=== PATIENT | male | born 1950 | race Caucasian/White ===

== ENCOUNTER 2019-03-23 18:48 | Inpatient (IN) | payer MEDICARE, BC ==
[2019-03-23] MEDS ORDERED: HYDROmorphone 1 MG/ML Syringe IM ONE (19:14)
[2019-03-23] MEDS ORDERED: HYDROmorphone 2 MG Tab PO ONE (19:44)
--- NOTE | 2019-03-23 21:10 | CRLUS ---
INDICATION: Leg swelling TECHNIQUE: Ultrasound venous duplex lower left extremity. Compression venous exam was performed using garcía-scale, color Doppler, and spectral Doppler analysis. COMPARISON: None FINDINGS: Sonographic imaging demonstrates DVT in the left popliteal vein and entire left posterior tibial veins. The left common femoral, deep femoral, superficial femoral, and greater saphenous veins to be fully compressible with normal color Doppler blood flow. IMPRESSION: There is DVT within the left popliteal and posterior tibial veins. Findings discussed with Dr. Burkett at 9:06 p.m. on March 23, 2019. Dictated by Veena Piña MD @ Mar 23 2019 9:05PM Signed by Dr. Veena Piña @ Mar 23 2019 9:08PM
--- NOTE | 2019-03-23 21:12 | EDM.PDOC ---
ED HPI GENERAL MEDICAL PROBLEM - General Chief Complaint: Lower Extremity Injury/Pain Stated Complaint: LEFT KNEE PAIN Time Seen by Provider: 03/23/19 18:55 Source of Information: Reports: Patient History Limitations: Reports: No Limitations - History of Present Illness INITIAL COMMENTS - FREE TEXT/NARRATIVE: pt arrived with a very painful swollen left leg. He had a cleo knee replacement done on Mar 14. He has been quite active and he has been on asa 81 mg bid. He was traveling from [place] today and he suddenly developed alot of pain and the leg swelled upmarkedly. He is is very uncomfortable at this time. Pt has required very little for pain Onset: Today, Other (pt developed rapid swellingof the left leg. He has had very severe pain. He has not been having to use pain meds during the day. This pain and swelling hit him about 4 thirty. He has had 1 mg of dilaudid im and 2 mg po and he is still very uncomfortable. ) Duration: Hour(s):, Other (pt states the pain is as bad as it was just before surgery. ) Location: Reports: Lower Extremity, Left Associated Symptoms: Reports: Other (pt does not have sob. ) left knee Pain Score (Numeric/FACES): 9 - Related Data Allergies Allergy/AdvReac Type Severity Reaction Status Date / Time No Known Allergies Allergy Verified 03/23/19 18:56 Home Meds: Home Meds Aspirin [Ecotrin EC] 162 mg PO DAILY 03/23/19 [History] Celecoxib [CeleBREX] 200 mg PO BID 03/23/19 [History] DULoxetine [Cymbalta] 60 mg PO DAILY 03/23/19 [History] HYDROmorphone [Dilaudid] 2 - 4 mg PO Q4H PRN 03/23/19 [History] Omeprazole 40 mg PO BIDAC 03/23/19 [History] Tamsulosin [Tamsulosin 24 Hr] 0.4 mg PO DAILY 03/23/19 [History] traZODone 150 mg PO BEDTIME 03/23/19 [History] Past Medical History Cardiovascular History: Reports: Syncope Gastrointestinal History: Reports: Cholelithiasis, GERD Genitourinary History: Reports: Prostate Disorder, Renal Calculus Psychiatric History: Reports: Depression Oncologic (Cancer) History: Reports: Lung - Past Surgical History Respiratory Surgical History: Reports: Thoracotomy GI Surgical History: Reports: Appendectomy, Hernia, Inguinal Musculoskeletal Surgical History: Reports: Arthroscopic Knee, Shoulder Replacement Social & Family History - Tobacco Use Smoking Status *Q: Never Smoker - Caffeine Use Caffeine Use: Reports: Coffee - Recreational Drug Use Recreational Drug Use: No Review of Systems - Review of Systems Review Of Systems: See Below Eyes: Reports: No Symptoms Ears: Reports: No Symptoms Nose: Reports: No Symptoms Mouth/Throat: Reports: No Symptoms Respiratory: Reports: No Symptoms Cardiovascular: Reports: No Symptoms GI/Abdominal: Reports: No Symptoms Genitourinary: Reports: No Symptoms Musculoskeletal: Reports: Other ( severe pain and marked swelling in his left lower leg. ) ED EXAM, GENERAL - Physical Exam Exam: See Below Free Text/Narrative:: pt arrived with sudden onset of swelling and pain in the left lower leg. He states this started about 4 thirty this afternoon and he developed marked swelling and he had very severe pain. He states he has not had to use pain meds dueing the day the last 3-4 days. Exam Limited By: No Limitations General Appearance: Alert, Anxious, Severe Distress Ears: Normal TMs Nose: Normal Inspection Throat/Mouth: Normal Inspection Head: Atraumatic Neck: Normal Inspection Respiratory/Chest: No Respiratory Distress Cardiovascular: Regular Rate, Rhythm GI/Abdominal: Soft, Non-Tender (Male) Exam: Deferred Rectal (Males) Exam: Deferred Back Exam: Normal Inspection Extremities: Other (marked swelling and pain in the left lower leg. He states this hard swelling started about 4 thirty. He has pain level of a ten and he has not had relief with the dilaudid he received. ) Neurological: Alert, Oriented, Normal Cognition Psychiatric: Normal Affect, Anxious Course - Vital Signs Last Recorded V/S: Last Vital Signs Temp 36.8 C 03/23/19 19:21 Pulse 78 03/23/19 20:06 Resp 26 H 03/23/19 19:21 BP 169/99 H 03/23/19 20:06 Pulse Ox 99 03/23/19 19:21 - Orders/Labs/Meds Orders: Active Orders 24 hr Category Date Time Status VL Duplex Lwr Ext Veins Ltd Lt [US] Stat Exams 03/23/19 19:43 Ordered Labs: Laboratory Tests 03/23/19 03/23/19 Range/Units 19:43 19:43 WBC 7.2 (4.5-11.0) K/uL RBC 4.29 L (4.30-5.90) M/uL Hgb 12.9 (12.0-15.0) g/dL Hct 39.2 L (40.0-54.0) % MCV 91 (80-98) fL MCH 30 (27-31) pg MCHC 33 (32-36) % Plt Count 272 (150-400) K/uL Neut % (Auto) 74 H (36-66) % Lymph % (Auto) 15 L (24-44) % [place] % (Auto) 9 H (2-6) % Eos % (Auto) 2 (2-4) % Baso % (Auto) 1 (0-1) % Sodium 138 L (140-148) mmol/L Potassium 3.7 (3.6-5.2) mmol/L Chloride 104 (100-108) mmol/L Carbon Dioxide 25 (21-32) mmol/L Anion Gap 12.7 (5.0-14.0) mmol/L BUN 18 (7-18) mg/dL Creatinine 1.2 (0.8-1.3) mg/dL Est Cr Clr Drug Dosing 61.01 mL/min Estimated GFR (MDRD) 60 (>60) Glucose 93 (74-106) mg/dL Calcium 9.0 (8.5-10.1) mg/dL Total Bilirubin 0.6 (0.2-1.0) mg/dL AST 17 (15-37) U/L ALT 26 (12-78) U/L Alkaline Phosphatase 91 (46-116) U/L Total Protein 6.9 (6.4-8.2) g/dL Albumin 3.4 (3.4-5.0) g/dL Globulin 3.5 (2.3-3.5) g/dL Albumin/Globulin Ratio 1.0 L (1.2-2.2) Meds: Medications Discontinued Medications Generic Name Dose Route Start Last Admin Trade Name Freq PRN Reason Stop Dose Admin Hydromorphone HCl 1 mg 03/23/19 19:14 03/23/19 19:20 Dilaudid IM 03/23/19 19:15 1 mg ONETIME ONE Administration Hydromorphone HCl 2 mg 03/23/19 19:44 03/23/19 20:00 Dilaudid PO 03/23/19 19:45 2 mg Q8H ONE Administration - Re-Assessments/Exams Free Text/Narrative Re-Assessment/Exam: 03/23/19 21:26 pt arrived with marked pain and swelling that came up suddenly starting about 4 thirty. Departure - Departure Time of Disposition: 21:27 Disposition: Admitted As Inpatient 64 Condition: Fair Clinical Impression: DVT (deep venous thrombosis), Severe pain - Discharge Information Referrals: PCP,None [Primary Care Provider] - Care Plan Goals: admit to Dr Renae - My Orders Last 24 Hours: My Active Orders 03/23/19 19:43 VL Duplex Lwr Ext Veins Ltd Lt [US] Stat - Assessment/Plan Last 24 Hours: My Active Orders 03/23/19 19:43 VL Duplex Lwr Ext Veins Ltd Lt [US] Stat
[2019-03-23] MEDS ORDERED: HYDROmorphone 1 MG/ML Syringe IVPUSH ONE (21:15)
[2019-03-23] MEDS: Enoxaparin 100 MG/1 ML Syringe SUBCUT SCH (22:22)
[2019-03-23] MEDS: HYDROmorphone 1 MG/ML Syringe IVPUSH PRN ×2 (22:53→23:58)
[2019-03-24] MEDS ORDERED: diphenhydrAMINE 25 MG Cap PO PRN (00:13)
[2019-03-24] MEDS: Cyclobenzaprine 10 MG Tab PO PRN ×3 (00:35→19:40)
[2019-03-24] MEDS: HYDROmorphone 1 MG/ML Syringe IVPUSH PRN ×13 (00:40→21:15)
[2019-03-24] MEDS: Sodium Chloride 0.9% 10 ML Syringe FLUSH PRN ×3 (00:43→08:37)
[2019-03-24] MEDS: traZODone 50 MG Tab PO SCH ×2 (01:03→21:01)
--- NOTE | 2019-03-24 04:58 | HP ---
CHIEF COMPLAINT: Left leg pain. HISTORY OF PRESENT ILLNESS: A 68-year-old who 10 days ago had medial left knee replacement, which went well. He has been walking up to a mile a day. All of a sudden today, he started having increasing pain and swelling that was quite severe. He came into the emergency room for further evaluation, was found to have a DVT in the left leg. I was asked to admit the patient for further evaluation and treatment. The patient denies any chest pain or shortness of breath, just the severe pain in his left leg with swelling, that is only partially relieved with the Dilaudid that they gave him in the ER. He denies a history of DVT in the past. PAST MEDICAL HISTORY: Last fall, he had right shoulder replacement; just 10 days ago, a left partial knee replacement; he has had within the last year partial lung resection on the right side for [id number] lung cancer. He has had fractured ankles in the past with surgery. He has also had a history of nephritis when he was a child. No history of DVT in the past. CURRENT MEDICATIONS: Aspirin 81 mg daily; Celebrex 200 mg b.i.d.; Cymbalta 60 mg daily; Dilaudid 2 to 4 mg q.4 hours p.r.n., but really has not had to take much except at night until today; omeprazole 40 mg b.i.d.; Flomax 0.4 mg daily; trazodone 150 mg at bedtime. ALLERGIES: NO KNOWN DRUG ALLERGIES. SOCIAL HISTORY: Quit smoking when he was in his 20s. Quit drinking alcohol prior to his recent surgery. FAMILY HISTORY: Aunt with DVT. Otherwise, none. REVIEW OF SYSTEMS: Denies any HEENT complaints. No chest pain or shortness of breath. No nausea or vomiting. No specific bowel or bladder trouble. Does have swelling in his left leg with pain. Denies any other skin problems. No neurologic complaints reported. OBJECTIVE: VITAL SIGNS: Weight 90 kg. Temperature 36.8, blood pressure 166/106, respirations 26, O2 saturation 99% on room air, and pulse 96. HEENT: Pharynx is clear. NECK: Supple. No adenopathy, thyromegaly, JVD, or carotid bruits. LUNGS: Clear. HEART: Regular, without murmurs. ABDOMEN: Soft and nontender. No mass can be palpated. EXTREMITIES: Right leg is unremarkable. Left leg does have increased swelling from the knee down with increased warmth and tenderness with some bruising, most likely because of his recent surgery down into his foot and ankle. NEUROLOGIC: Cranial nerves 2 through 12 appear grossly intact. Alert and oriented x3. DIAGNOSTIC DATA: His doppler showed DVT in left popliteal and posterior tibial veins. White count 7.2, hemoglobin 12.9, and platelets 272,000. Sodium 138, potassium 3.7, chloride 104, BUN is 18, creatinine 1.2. GFR was 60. Liver functions were normal. ASSESSMENT: 1. Left leg deep venous thrombosis with recent partial knee replacement. Because of acute onset and severity, we will admit him to the hospital under observation, start him on subcutaneous Lovenox b.i.d., and I will check in the morning for his insurance coverage as far as what oral anticoagulation his insurance will cover. We will continue with IV Dilaudid for pain. 2. Other medical problems and surgeries as listed above. Qasim Renae MD /[id number]
[2019-03-24] MEDS: Pantoprazole 40 MG Tab.CR PO SCH ×2 (07:28→17:08)
[2019-03-24] MEDS: Enoxaparin 100 MG/1 ML Syringe SUBCUT SCH ×2 (09:10→21:24)
[2019-03-24] MEDS: DULoxetine 30 MG Cap PO SCH (11:49)
[2019-03-24] MEDS: Tamsulosin 0.4 MG Cap.ER PO SCH (11:49)
[2019-03-24] MEDS ORDERED: fentaNYL 100 MCG/2 ML SDV IVPUSH ONE ×3 (11:52→14:48)
[2019-03-24] MEDS: HYDROmorphone 2 MG Tab PO PRN ×3 (11:55→21:00)
[2019-03-24] MEDS ORDERED: Bupivacaine 0.5%/EPINEPHrine 1:200,000 50 ML MDV ONE (12:48)
--- NOTE | 2019-03-24 13:15 | PCM.CONS ---
H&P History of Present Illness - General Date of Service: 03/24/19 Admit Problem/Dx: Admission Diagnosis/Problem Admission Diagnosis/Problem DVT, Deep venous thrombosis of lower extremity Source of Information: Patient, Old Records History Limitations: Reports: No Limitations - History of Present Illness Initial Comments - Free Text/Narative: 68 year old male with history of left knee arthroplasty done at [facility] on March 14. Had been doing very well and has been active. Was travelling form [place] yesterday when he developed severe pain and swelling of the lower. He was evaluated in the Ed and found to have a DVT at the Popliteal V level. He was admitted for treatment of the DVT, however his pain level has been severe since admission and there is concern for compartment syndrome. Onset of Symptoms: Reports: Sudden Symptom Onset Date: 03/23/19 Location: Reports: Lower Extremity, Left Quality: Reports: Throbbing Severity: Severe Improves with: Reports: None Worsens with: Reports: Movement left knee Pain Score (Numeric/FACES): 9 - Related Data Allergies/Adverse Reactions: Allergies Allergy/AdvReac Type Severity Reaction Status Date / Time No Known Allergies Allergy Verified 03/23/19 18:56 Home Medications: Home Meds Aspirin [Ecotrin EC] 162 mg PO DAILY 03/23/19 [History] Calcium Carbonate/Vitamin D3 [Calcium 500-Vit D3 400 Chew Tb] 2 tab PO DAILY [History] Celecoxib [CeleBREX] 200 mg PO BID 03/23/19 [History] DULoxetine [Cymbalta] 60 mg PO DAILY 03/23/19 [History] Fluticasone Propionate [Flonase] 2 spray NS DAILY 03/23/19 [History] HYDROmorphone [Dilaudid] 2 - 4 mg PO Q4H PRN 03/23/19 [History] Omeprazole 40 mg PO BIDAC 03/23/19 [History] Tamsulosin [Tamsulosin 24 Hr] 0.4 mg PO DAILY 03/23/19 [History] amLODIPine [Norvasc] 10 mg PO DAILY 03/23/19 [History] traZODone 150 mg PO BEDTIME 03/23/19 [History] Past Medical History Cardiovascular History: Reports: Hypertension, Syncope Respiratory History: Reports: Other (See Below) Other Respiratory History: lung CA Gastrointestinal History: Reports: Cholelithiasis, GERD Genitourinary History: Reports: Prostate Disorder, Renal Calculus Psychiatric History: Reports: Depression Oncologic (Cancer) History: Reports: Lung - Past Surgical History Respiratory Surgical History: Reports: Thoracotomy GI Surgical History: Reports: Appendectomy, Colonoscopy, Hernia, Inguinal Musculoskeletal Surgical History: Reports: Arthroscopic Knee, Shoulder Replacement Social & Family History - Tobacco Use Smoking Status *Q: Former Smoker Used Tobacco, but Quit: Yes Month/Year Tobacco Last Used: 1974 - Caffeine Use Caffeine Use: Reports: Coffee - Recreational Drug Use Recreational Drug Use: No H&P Review of Systems - Review of Systems: Review Of Systems: See Below Musculoskeletal: Reports: Leg Pain Exam - Exam Exam: See Below - Vital Signs Vital Signs: Last Vital Signs Temp 38.6 C H 03/24/19 11:00 Pulse 101 H 03/24/19 11:00 Resp 18 03/24/19 11:00 BP 145/96 H 03/24/19 11:00 Pulse Ox 95 03/24/19 11:00 Weight: 90.7 kg - Exam Extremities: Other (left lower leg extremely swollen and tight, DP pulse difficult to palpate, significant pain with passive motion of the toes) - Patient Data Lab Results Last 24 hrs: Laboratory Results - last 24 hr 03/23/19 03/23/19 Range/Units 19:43 19:43 WBC 7.2 (4.5-11.0) K/uL RBC 4.29 L (4.30-5.90) M/uL Hgb 12.9 (12.0-15.0) g/dL Hct 39.2 L (40.0-54.0) % MCV 91 (80-98) fL MCH 30 (27-31) pg MCHC 33 (32-36) % Plt Count 272 (150-400) K/uL Neut % (Auto) 74 H (36-66) % Lymph % (Auto) 15 L (24-44) % [place] % (Auto) 9 H (2-6) % Eos % (Auto) 2 (2-4) % Baso % (Auto) 1 (0-1) % Sodium 138 L (140-148) mmol/L Potassium 3.7 (3.6-5.2) mmol/L Chloride 104 (100-108) mmol/L Carbon Dioxide 25 (21-32) mmol/L Anion Gap 12.7 (5.0-14.0) mmol/L BUN 18 (7-18) mg/dL Creatinine 1.2 (0.8-1.3) mg/dL Est Cr Clr Drug Dosing 61.01 mL/min Estimated GFR (MDRD) 60 (>60) Glucose 93 (74-106) mg/dL Calcium 9.0 (8.5-10.1) mg/dL Total Bilirubin 0.6 (0.2-1.0) mg/dL AST 17 (15-37) U/L ALT 26 (12-78) U/L Alkaline Phosphatase 91 (46-116) U/L Total Protein 6.9 (6.4-8.2) g/dL Albumin 3.4 (3.4-5.0) g/dL Globulin 3.5 (2.3-3.5) g/dL Albumin/Globulin Ratio 1.0 L (1.2-2.2) Result Diagrams: 03/23/19 19:43 03/23/19 19:43 Consult PN Assessment/Plan (1) DVT (deep venous thrombosis) SNOMED Code(s): 730425345 Code(s): I82.409 - ACUTE EMBOLISM AND THOMBOS UNSP DEEP VN UNSP LOWER EXTREMITY Current Visit: Yes (2) Severe pain SNOMED Code(s): 94935230 Code(s): R52 - PAIN, UNSPECIFIED Current Visit: Yes (3) Nontraumatic compartment syndrome of left lower extremity SNOMED Code(s): 009929326 Code(s): M79.A22 - NONTRAUMATIC COMPARTMENT SYNDROME OF LEFT LOWER EXTREMITY Current Visit: Yes Comment: secondary to DVT Problem List Initiated/Reviewed/Updated: Yes My Orders Last 24 Hours: My Active Orders 03/24/19 13:04 Verify Patient Consent Obtain [RC] ASDIRECTED 03/24/19 13:05 ceFAZolin [Ancef] 2 gm Premix Bag 1 bag IV ONETIME Plan: Plan four compartment fasciotomy left lower leg. Risks, benefits and potential complications of procedure as well as potential consequences of delayed or non- operative treatment were discussed. He is in agreement with the plan.
[2019-03-24] MEDS ORDERED: fentaNYL 250 MCG/5 ML SDV ONE ×2 (13:22→13:47)
[2019-03-24] MEDS ORDERED: Neostigmine Methylsulfate 1 MG/ML 5 ML Syringe ONE (13:23)
[2019-03-24] MEDS ORDERED: Propofol 200 MG/20 ML SDV ONE (13:23)
[2019-03-24] MEDS ORDERED: Glycopyrrolate 0.2 MG/ML 5 ML MDV ONE (13:23)
[2019-03-24] MEDS ORDERED: Ondansetron 4 MG/2 ML SDV ONE (13:23)
[2019-03-24] MEDS ORDERED: Dexamethasone 4 MG/ML SDV ONE (13:23)
[2019-03-24] MEDS ORDERED: Succinylcholine 200 MG/10 ML MDV ONE (13:23)
[2019-03-24] MEDS ORDERED: Rocuronium 50 MG/5 ML Vial ONE (13:23)
[2019-03-24] MEDS ORDERED: ceFAZolin 2 GM in Premix Bag 1 BAG IV ONE (13:30)
--- NOTE | 2019-03-24 13:55 | PCM.PN ---
- General Info Date of Service: 03/24/19 Subjective Update: there were no acute events overnight but the patient has not had good control of his pain. He reports severe left leg pain from the knee distally. Dilauded helps but only for 10 minutes. Swelling seems worse. Pain getting worse. Severe muscle spasms along with the pain in his leg. Functional Status: Denies: Pain Controlled - Review of Systems General: Denies: Fever Musculoskeletal: Reports: Leg Pain, Foot Pain - Patient Data Vitals - Most Recent: Last Vital Signs Temp 38.6 C H 03/24/19 11:00 Pulse 101 H 03/24/19 11:00 Resp 18 03/24/19 11:00 BP 145/96 H 03/24/19 11:00 Pulse Ox 95 03/24/19 11:00 Weight - Most Recent: 90.7 kg I&O - Last 24 Hours: Intake & Output 03/23/19 03/24/19 03/24/19 22:59 06:59 14:59 Output Total 1 850 200 Balance -1 -850 -200 Lab Results Last 24 Hours: Laboratory Results - last 24 hr 03/23/19 03/23/19 Range/Units 19:43 19:43 WBC 7.2 (4.5-11.0) K/uL RBC 4.29 L (4.30-5.90) M/uL Hgb 12.9 (12.0-15.0) g/dL Hct 39.2 L (40.0-54.0) % MCV 91 (80-98) fL MCH 30 (27-31) pg MCHC 33 (32-36) % Plt Count 272 (150-400) K/uL Neut % (Auto) 74 H (36-66) % Lymph % (Auto) 15 L (24-44) % [place] % (Auto) 9 H (2-6) % Eos % (Auto) 2 (2-4) % Baso % (Auto) 1 (0-1) % Sodium 138 L (140-148) mmol/L Potassium 3.7 (3.6-5.2) mmol/L Chloride 104 (100-108) mmol/L Carbon Dioxide 25 (21-32) mmol/L Anion Gap 12.7 (5.0-14.0) mmol/L BUN 18 (7-18) mg/dL Creatinine 1.2 (0.8-1.3) mg/dL Est Cr Clr Drug Dosing 61.01 mL/min Estimated GFR (MDRD) 60 (>60) Glucose 93 (74-106) mg/dL Calcium 9.0 (8.5-10.1) mg/dL Total Bilirubin 0.6 (0.2-1.0) mg/dL AST 17 (15-37) U/L ALT 26 (12-78) U/L Alkaline Phosphatase 91 (46-116) U/L Total Protein 6.9 (6.4-8.2) g/dL Albumin 3.4 (3.4-5.0) g/dL Globulin 3.5 (2.3-3.5) g/dL Albumin/Globulin Ratio 1.0 L (1.2-2.2) Med Orders - Current: Current Medications Cyclobenzaprine HCl (Flexeril) 10 mg PO Q8H PRN PRN Reason: Spasms Last Admin: 03/24/19 09:58 Dose: 10 mg Diphenhydramine HCl (Benadryl) 25 mg PO Q4H PRN PRN Reason: Itching Duloxetine HCl (Cymbalta) 60 mg PO DAILY [facility] Last Admin: 03/24/19 11:49 Dose: Not Given Enoxaparin Sodium (Lovenox) 100 mg SUBCUT Q12H [facility] Last Admin: 03/24/19 09:10 Dose: 100 mg Hydromorphone HCl (Dilaudid) 1 mg IVPUSH Q1H PRN PRN Reason: Pain Last Admin: 03/24/19 09:58 Dose: 1 mg Hydromorphone HCl (Dilaudid) 4 mg PO Q3H PRN PRN Reason: Pain Last Admin: 03/24/19 11:55 Dose: 4 mg Cefazolin Sodium/Dextrose 2 gm (/ Premix) 50 mls @ 100 mls/hr IV ONETIME ONE Stop: 03/24/19 13:59 Pantoprazole Sodium (Protonix) 40 mg PO BIDAC [facility] Last Admin: 03/24/19 07:28 Dose: 40 mg Sodium Chloride (Saline Flush) 10 ml FLUSH ASDIRECTED PRN PRN Reason: Keep Vein Open Last Admin: 03/24/19 08:37 Dose: 10 ml Tamsulosin HCl (Flomax) 0.4 mg PO DAILY [facility] Last Admin: 03/24/19 11:49 Dose: Not Given Trazodone HCl (Trazodone) 150 mg PO BEDTIME [facility] Last Admin: 03/24/19 01:03 Dose: 150 mg Discontinued Medications Bupivacaine HCl/Epinephrine Bitart (Marcaine 0.5%/Epinephrine 1:200,000) Confirm Administered Dose 50 ml .ROUTE .STK-MED ONE Stop: 03/24/19 12:49 Dexamethasone (Dexamethasone) Confirm Administered Dose 4 mg .ROUTE .STK-MED ONE Stop: 03/24/19 13:24 Fentanyl (Sublimaze) 50 mcg IVPUSH ONETIME ONE Stop: 03/24/19 11:53 Last Admin: 03/24/19 12:11 Dose: 50 mcg Fentanyl (Sublimaze) Confirm Administered Dose 250 mcg .ROUTE .STK-MED ONE Stop: 03/24/19 13:23 Fentanyl (Sublimaze) Confirm Administered Dose 250 mcg .ROUTE .STK-MED ONE Stop: 03/24/19 13:48 Glycopyrrolate (Robinul) Confirm Administered Dose 1 mg .ROUTE .STK-MED ONE Stop: 03/24/19 13:24 Hydromorphone HCl (Dilaudid) 1 mg IM ONETIME ONE Stop: 03/23/19 19:15 Last Admin: 03/23/19 19:20 Dose: 1 mg Hydromorphone HCl (Dilaudid) 2 mg PO Q8H ONE Stop: 03/23/19 19:45 Last Admin: 03/23/19 20:00 Dose: 2 mg Hydromorphone HCl (Dilaudid) 1 mg IVPUSH Q1H ONE Stop: 03/23/19 21:16 Last Admin: 03/23/19 21:21 Dose: 1 mg Neostigmine Methylsulfate (Neostigmine) Confirm Administered Dose 5 mg .ROUTE .STK-MED ONE Stop: 03/24/19 13:24 Ondansetron HCl (Zofran) Confirm Administered Dose 4 mg .ROUTE .STK-MED ONE Stop: 03/24/19 13:24 Propofol (Diprivan 20 Ml) Confirm Administered Dose 200 mg .ROUTE .STK-MED ONE Stop: 03/24/19 13:24 Rocuronium [place] (Zemuron) Confirm Administered Dose 50 mg .ROUTE .STK-MED ONE Stop: 03/24/19 13:24 Succinylcholine Chloride (Quelicin) Confirm Administered Dose 200 mg .ROUTE .STK -MED ONE Stop: 03/24/19 13:24 - Exam Quality Assessment: No: Supplemental Oxygen General: Alert, Oriented, Cooperative, Mild Distress HEENT: Pupils Equal Lungs: Normal Respiratory Effort GI/Abdominal Exam: Soft, No Distention Extremities: No Pedal Edema (on the right), Erlin's Sign, Leg Pain, Increased Warmth (left leg from knee distally ) Skin: Warm, Dry, Ecchymosis (posterior to left knee and distal left lower leg ) Psy/Mental Status: Alert, Normal Affect - Problem List Review Problem List Initiated/Reviewed/Updated: Yes - My Orders Last 24 Hours: My Active Orders 03/24/19 10:51 HYDROmorphone [Dilaudid] 4 mg PO Q3H PRN 03/24/19 13:53 Notify Provider Consults [RC] ASDIRECTED Consult to Physician [CONS] Urgent 03/25/19 05:00 BASIC METABOLIC PANEL,BMP [CHEM] Timed CBC W/O DIFF,HEMOGRAM [HEME] Timed (1) - Plan Plan:: ASSESSMENT AND PLAN - Severe left lower extremity pain, concern for compartment syndrome - pain out of proportion to examination. Pain is getting worse. tense swelling of the lower extremity raises concern for urgent need for consultation. -Orthopedic consultation -Pain control Left leg DVT - identified with ultrasound yesterday. will need treatment but patient more urgently needs attention as discussed above. -Readdress enoxaparin after surgery Recent left knee arthroplasty - performed at [facility]. pain had been well-controlled. -Outpatient follow-up Maintenance issues - - DVT prophylaxis - enoxaparin - GI prophylaxis - not indicated - Nutrition - nothing by mouth until after surgery Admission justification - patient initially admitted to observation status. He will be transitioned to inpatient status with concern for compartment syndrome and urgent need for surgical exploration. Disposition - I would anticipate discharge home after the hospital stay Socrates Lilly M.D.
[2019-03-24] MEDS ORDERED: Acetaminophen 1,000 MG in Premix Bag 1 BAG IV ONE (14:49)
[2019-03-24] MEDS: hydrOXYzine HCl 100 MG/2 ML SDV IM PRN ×2 (17:05→21:18)
[2019-03-24] MEDS ORDERED: Lidocaine 2% Jelly 10 ML Urojet MUCMEM ONE (20:38)
[2019-03-24] MEDS ORDERED: traZODone 50 MG Tab PO SCH (21:00)
[2019-03-24] MEDS: ceFAZolin 1 GM in Premix Bag 1 BAG IV SCH (21:24)
[2019-03-24] MEDS ORDERED: fentaNYL 100 MCG/2 ML SDV IVPUSH PRN (22:44)
[2019-03-25] MEDS: Acetaminophen/oxyCODONE 325-5 MG Tab PO PRN ×5 (00:13→21:58)
[2019-03-25] MEDS: HYDROmorphone 1 MG/ML Syringe IVPUSH PRN ×8 (01:15→23:34)
[2019-03-25] MEDS: hydrOXYzine HCl 100 MG/2 ML SDV IM PRN ×4 (01:15→20:16)
[2019-03-25] MEDS: Cyclobenzaprine 10 MG Tab PO PRN (04:14)
[2019-03-25] MEDS: ceFAZolin 1 GM in Premix Bag 1 BAG IV SCH ×3 (06:23→22:58)
[2019-03-25] MEDS: DULoxetine 30 MG Cap PO SCH (08:10)
[2019-03-25] MEDS: Tamsulosin 0.4 MG Cap.ER PO SCH (08:10)
[2019-03-25] MEDS: Pantoprazole 40 MG Tab.CR PO SCH ×2 (08:10→18:00)
[2019-03-25] MEDS: Enoxaparin 100 MG/1 ML Syringe SUBCUT SCH ×2 (10:16→21:57)
[2019-03-25] MEDS ORDERED: Magnesium Hydroxide 400 MG/5 ML Susp 30 ML Cup PO PRN (10:28)
--- NOTE | 2019-03-25 10:30 | PCM.PN ---
- General Info Date of Service: 03/25/19 Subjective Update: Patient had difficulty with pain control overnight but is doing better now with transition to oxycodone/acetaminophen. Pain level is down to 4 out of 10 as of this morning. He did get up and do some walking with a walker and physical therapy. Yesterday afternoon he went to the operating room and had a hematoma evacuated from the left half. Low-grade temperature elevations. Feeling better today. Functional Status: Reports: Pain Controlled - Review of Systems Musculoskeletal: Reports: Leg Pain - Patient Data Vitals - Most Recent: Last Vital Signs Temp 36.8 C 03/25/19 07:00 Pulse 81 03/25/19 07:00 Resp 14 03/25/19 07:00 BP 123/73 03/25/19 07:00 Pulse Ox 100 03/25/19 09:48 Weight - Most Recent: 90.7 kg I&O - Last 24 Hours: Intake & Output 03/24/19 03/25/19 03/25/19 22:59 06:59 14:59 Intake Total 890 200 600 Output Total 1225 300 Balance -335 -100 600 Lab Results Last 24 Hours: Laboratory Results - last 24 hr 03/25/19 03/25/19 Range/Units 04:15 04:15 WBC 13.3 H (4.5-11.0) K/uL RBC 3.56 L (4.30-5.90) M/uL Hgb 10.9 L D (12.0-15.0) g/dL Hct 33.3 L (40.0-54.0) % MCV 94 (80-98) fL MCH 31 (27-31) pg MCHC 33 (32-36) % Plt Count 259 (150-400) K/uL Sodium 138 L (140-148) mmol/L Potassium 4.1 (3.6-5.2) mmol/L Chloride 103 (100-108) mmol/L Carbon Dioxide 26 (21-32) mmol/L Anion Gap 13.1 (5.0-14.0) mmol/L BUN 19 H (7-18) mg/dL Creatinine 1.2 (0.8-1.3) mg/dL Est Cr Clr Drug Dosing 60.76 mL/min Estimated GFR (MDRD) 60 (>60) Glucose 126 H (74-106) mg/dL Calcium 9.0 (8.5-10.1) mg/dL Med Orders - Current: Current Medications Diphenhydramine HCl (Benadryl) 25 mg PO Q4H PRN PRN Reason: Itching Duloxetine HCl (Cymbalta) 60 mg PO DAILY [facility] Last Admin: 03/25/19 08:10 Dose: 60 mg Enoxaparin Sodium (Lovenox) 90 mg SUBCUT Q12H [facility] Hydromorphone HCl (Dilaudid) 1 mg IVPUSH Q1H PRN PRN Reason: Pain Last Admin: 03/25/19 04:14 Dose: 1 mg Hydroxyzine HCl (Vistaril) 100 mg IM Q4H PRN PRN Reason: Pain (severe 7-10) Last Admin: 03/25/19 09:29 Dose: 100 mg Magnesium Hydroxide (Milk Of Magnesia) 30 ml PO BID PRN PRN Reason: Constipation Oxycodone/Acetaminophen (Percocet 325-5 Mg) 1 - 2 tab PO Q6H PRN PRN Reason: Pain Last Admin: 03/25/19 08:14 Dose: 2 tab Pantoprazole Sodium (Protonix) 40 mg PO BIDAC [facility] Last Admin: 03/25/19 08:10 Dose: 40 mg Senna/Docusate Sodium (Senna Plus) 1 tab PO BID [facility] Sodium Chloride (Saline Flush) 10 ml FLUSH ASDIRECTED PRN PRN Reason: Keep Vein Open Last Admin: 03/24/19 08:37 Dose: 10 ml Tamsulosin HCl (Flomax) 0.4 mg PO DAILY [facility] Last Admin: 03/25/19 08:10 Dose: 0.4 mg Tizanidine HCl (Zanaflex) 4 mg PO Q6H PRN PRN Reason: Muscle Spasm Trazodone HCl (Trazodone) 150 mg PO BEDTIME [facility] Last Admin: 03/24/19 21:01 Dose: 150 mg Discontinued Medications Bupivacaine HCl/Epinephrine Bitart (Marcaine 0.5%/Epinephrine 1:200,000) Confirm Administered Dose 50 ml .ROUTE .STK-MED ONE Stop: 03/24/19 12:49 Cyclobenzaprine HCl (Flexeril) 10 mg PO Q8H PRN PRN Reason: Spasms Last Admin: 03/25/19 04:14 Dose: 10 mg Dexamethasone (Dexamethasone) Confirm Administered Dose 4 mg .ROUTE .STK-MED ONE Stop: 03/24/19 13:24 Enoxaparin Sodium (Lovenox) 100 mg SUBCUT Q12H [facility] Last Admin: 03/25/19 10:16 Dose: 100 mg Fentanyl (Sublimaze) 50 mcg IVPUSH ONETIME ONE Stop: 03/24/19 11:53 Last Admin: 03/24/19 12:11 Dose: 50 mcg Fentanyl (Sublimaze) Confirm Administered Dose 250 mcg .ROUTE .STK-MED ONE Stop: 03/24/19 13:23 Fentanyl (Sublimaze) Confirm Administered Dose 250 mcg .ROUTE .STK-MED ONE Stop: 03/24/19 13:48 Fentanyl (Sublimaze) 50 mcg IVPUSH ONETIME ONE Stop: 03/24/19 14:30 Last Admin: 03/24/19 14:38 Dose: 50 mcg Fentanyl (Sublimaze) 50 mcg IVPUSH ONETIME ONE Stop: 03/24/19 14:49 Last Admin: 03/24/19 14:52 Dose: 50 mcg Fentanyl (Sublimaze) 50 mcg IVPUSH Q1H PRN PRN Reason: Pain (severe 7-10) Last Admin: 03/24/19 23:16 Dose: 50 mcg Glycopyrrolate (Robinul) Confirm Administered Dose 1 mg .ROUTE .STK-MED ONE Stop: 03/24/19 13:24 Hydromorphone HCl (Dilaudid) 1 mg IM ONETIME ONE Stop: 03/23/19 19:15 Last Admin: 03/23/19 19:20 Dose: 1 mg Hydromorphone HCl (Dilaudid) 2 mg PO Q8H ONE Stop: 03/23/19 19:45 Last Admin: 03/23/19 20:00 Dose: 2 mg Hydromorphone HCl (Dilaudid) 1 mg IVPUSH Q1H ONE Stop: 03/23/19 21:16 Last Admin: 03/23/19 21:21 Dose: 1 mg Hydromorphone HCl (Dilaudid) 4 mg PO Q3H PRN PRN Reason: Pain Last Admin: 03/24/19 21:00 Dose: 4 mg Cefazolin Sodium/Dextrose 2 gm (/ Premix) 50 mls @ 100 mls/hr IV ONETIME ONE Stop: 03/24/19 13:59 Last Admin: 03/24/19 13:35 Dose: 100 mls/hr Acetaminophen 1,000 mg/ Premix 100 mls @ 200 mls/hr IV ONETIME ONE Stop: 03/24/19 15:18 Last Admin: 03/24/19 15:01 Dose: 200 mls/hr Cefazolin Sodium/Dextrose 1 gm (/ Premix) 50 mls @ 100 mls/hr IV Q8H [facility] Stop: 03/25/19 06:29 Last Admin: 03/25/19 06:23 Dose: 100 mls/hr Lidocaine HCl (Xylocaine 2% Jelly) 10 ml MUCMEM ONETIME ONE Stop: 03/24/19 20:39 Last Admin: 03/24/19 21:02 Dose: 10 ml Neostigmine Methylsulfate (Neostigmine) Confirm Administered Dose 5 mg .ROUTE .STK-MED ONE Stop: 03/24/19 13:24 Ondansetron HCl (Zofran) Confirm Administered Dose 4 mg .ROUTE .STK-MED ONE Stop: 03/24/19 13:24 Propofol (Diprivan 20 Ml) Confirm Administered Dose 200 mg .ROUTE .STK-MED ONE Stop: 03/24/19 13:24 Rocuronium [place] (Zemuron) Confirm Administered Dose 50 mg .ROUTE .STK-MED ONE Stop: 03/24/19 13:24 Succinylcholine Chloride (Quelicin) Confirm Administered Dose 200 mg .ROUTE .STK -MED ONE Stop: 03/24/19 13:24 - Exam Quality Assessment: No: Supplemental Oxygen General: Alert, Oriented, Cooperative, No Acute Distress Lungs: Normal Respiratory Effort Extremities: Pedal Edema (left leg ), Other (left leg wrapped in alla from foot to above the knee ) Skin: Warm, Dry Psy/Mental Status: Alert, Normal Affect - Problem List Review Problem List Initiated/Reviewed/Updated: Yes - My Orders Last 24 Hours: My Active Orders 03/24/19 13:53 Notify Provider Consults [RC] ASDIRECTED Consult to Physician [CONS] Urgent 03/24/19 14:13 Admission Status [Patient Status] [ADT] Routine 03/24/19 16:40 hydrOXYzine HCl [Vistaril] 100 mg IM Q4H PRN 03/25/19 10:26 tiZANidine [Zanaflex] 4 mg PO Q6H PRN 03/25/19 10:28 Up With Assistance [RC] ASDIRECTED Magnesium Hydroxide [Milk of Magnesia] 30 ml PO BID PRN 03/25/19 10:30 Docusate Sodium/Sennosides [Senna Plus] 1 tab PO BID 03/25/19 21:00 Enoxaparin [Lovenox] 90 mg SUBCUT Q12H - Plan Plan:: ASSESSMENT AND PLAN - Large left lower extremity hematoma - no strong evidence to support compartment syndrome during surgery yesterday. large hematoma evacuated yesterday. Pain control much better today. Orthopedic consultation greatly appreciated. -Additional postop care per the orthopedic team -Pain control -Trial of muscle relaxer Left leg DVT - identified with ultrasound at the time of admission. Planning to restart anticoagulation tonight. -Restart enoxaparin 1 mg/kg every 12 hours -Transition to oral medications once stable Recent left knee arthroplasty - performed at [facility]. -Outpatient follow-up Maintenance issues - - DVT prophylaxis - enoxaparin - GI prophylaxis - not indicated - Nutrition - regular diet Disposition - I would anticipate discharge home after the hospital stay Socratse Lilly M.D.
[2019-03-25] MEDS: tiZANidine 4 MG Tab PO PRN ×2 (10:46→16:59)
--- NOTE | 2019-03-25 14:20 | PCM.SURGPN ---
- General Info Date of Service: 03/25/19 POD#: 1 Post-Op Diagnosis: Hematoma left calf, Compartment Syndrome, DVT Functional Status: Reports: Tolerating Diet, Ambulating, Other (pain alittle better controlled) - Review of Systems General: Reports: No Symptoms HEENT: Reports: No Symptoms Pulmonary: Reports: No Symptoms Cardiovascular: Reports: No Symptoms Psychiatric: Reports: No Symptoms - Patient Data Vitals - Most Recent: Last Vital Signs Temp 37.6 C 03/25/19 11:00 Pulse 104 H 03/25/19 11:00 Resp 16 03/25/19 11:00 BP 136/90 03/25/19 11:00 Pulse Ox 96 03/25/19 12:53 Weight - Most Recent: 90.7 kg I&O - Last 24 Hours: Intake & Output 03/24/19 03/25/19 03/25/19 22:59 06:59 14:59 Intake Total 890 200 600 Output Total 1225 300 Balance -335 -100 600 Lab Results Last 24 Hrs: Laboratory Results - last 24 hr 03/25/19 03/25/19 Range/Units 04:15 04:15 WBC 13.3 H (4.5-11.0) K/uL RBC 3.56 L (4.30-5.90) M/uL Hgb 10.9 L D (12.0-15.0) g/dL Hct 33.3 L (40.0-54.0) % MCV 94 (80-98) fL MCH 31 (27-31) pg MCHC 33 (32-36) % Plt Count 259 (150-400) K/uL Sodium 138 L (140-148) mmol/L Potassium 4.1 (3.6-5.2) mmol/L Chloride 103 (100-108) mmol/L Carbon Dioxide 26 (21-32) mmol/L Anion Gap 13.1 (5.0-14.0) mmol/L BUN 19 H (7-18) mg/dL Creatinine 1.2 (0.8-1.3) mg/dL Est Cr Clr Drug Dosing 60.76 mL/min Estimated GFR (MDRD) 60 (>60) Glucose 126 H (74-106) mg/dL Calcium 9.0 (8.5-10.1) mg/dL Med Orders - Current: Current Medications Diphenhydramine HCl (Benadryl) 25 mg PO Q4H PRN PRN Reason: Itching Duloxetine HCl (Cymbalta) 60 mg PO DAILY [facility] Last Admin: 03/25/19 08:10 Dose: 60 mg Enoxaparin Sodium (Lovenox) 90 mg SUBCUT Q12H [facility] Hydromorphone HCl (Dilaudid) 1 mg IVPUSH Q1H PRN PRN Reason: Pain Last Admin: 03/25/19 12:36 Dose: 1 mg Hydroxyzine HCl (Vistaril) 100 mg IM Q4H PRN PRN Reason: Pain (severe 7-10) Last Admin: 03/25/19 09:29 Dose: 100 mg Cefazolin Sodium/Dextrose 1 gm (/ Premix) 50 mls @ 100 mls/hr IV Q8HR [facility] Stop: 03/25/19 22:29 Magnesium Hydroxide (Milk Of Magnesia) 30 ml PO BID PRN PRN Reason: Constipation Oxycodone/Acetaminophen (Percocet 325-5 Mg) 2 tab PO Q4H PRN PRN Reason: Pain Last Admin: 03/25/19 13:16 Dose: 2 tab Pantoprazole Sodium (Protonix) 40 mg PO BIDAC [facility] Last Admin: 03/25/19 08:10 Dose: 40 mg Senna/Docusate Sodium (Senna Plus) 1 tab PO BID [facility] Last Admin: 03/25/19 11:40 Dose: 1 tab Sodium Chloride (Saline Flush) 10 ml FLUSH ASDIRECTED PRN PRN Reason: Keep Vein Open Last Admin: 03/24/19 08:37 Dose: 10 ml Tamsulosin HCl (Flomax) 0.4 mg PO DAILY [facility] Last Admin: 03/25/19 08:10 Dose: 0.4 mg Tizanidine HCl (Zanaflex) 4 mg PO Q6H PRN PRN Reason: Muscle Spasm Last Admin: 03/25/19 10:46 Dose: 4 mg Trazodone HCl (Trazodone) 150 mg PO BEDTIME [facility] Last Admin: 03/24/19 21:01 Dose: 150 mg Discontinued Medications Bupivacaine HCl/Epinephrine Bitart (Marcaine 0.5%/Epinephrine 1:200,000) Confirm Administered Dose 50 ml .ROUTE .STK-MED ONE Stop: 03/24/19 12:49 Cyclobenzaprine HCl (Flexeril) 10 mg PO Q8H PRN PRN Reason: Spasms Last Admin: 03/25/19 04:14 Dose: 10 mg Dexamethasone (Dexamethasone) Confirm Administered Dose 4 mg .ROUTE .STK-MED ONE Stop: 03/24/19 13:24 Enoxaparin Sodium (Lovenox) 100 mg SUBCUT Q12H [facility] Last Admin: 03/25/19 10:16 Dose: 100 mg Fentanyl (Sublimaze) 50 mcg IVPUSH ONETIME ONE Stop: 03/24/19 11:53 Last Admin: 03/24/19 12:11 Dose: 50 mcg Fentanyl (Sublimaze) Confirm Administered Dose 250 mcg .ROUTE .STK-MED ONE Stop: 03/24/19 13:23 Fentanyl (Sublimaze) Confirm Administered Dose 250 mcg .ROUTE .STK-MED ONE Stop: 03/24/19 13:48 Fentanyl (Sublimaze) 50 mcg IVPUSH ONETIME ONE Stop: 03/24/19 14:30 Last Admin: 03/24/19 14:38 Dose: 50 mcg Fentanyl (Sublimaze) 50 mcg IVPUSH ONETIME ONE Stop: 03/24/19 14:49 Last Admin: 03/24/19 14:52 Dose: 50 mcg Fentanyl (Sublimaze) 50 mcg IVPUSH Q1H PRN PRN Reason: Pain (severe 7-10) Last Admin: 03/24/19 23:16 Dose: 50 mcg Glycopyrrolate (Robinul) Confirm Administered Dose 1 mg .ROUTE .STK-MED ONE Stop: 03/24/19 13:24 Hydromorphone HCl (Dilaudid) 1 mg IM ONETIME ONE Stop: 03/23/19 19:15 Last Admin: 03/23/19 19:20 Dose: 1 mg Hydromorphone HCl (Dilaudid) 2 mg PO Q8H ONE Stop: 03/23/19 19:45 Last Admin: 03/23/19 20:00 Dose: 2 mg Hydromorphone HCl (Dilaudid) 1 mg IVPUSH Q1H ONE Stop: 03/23/19 21:16 Last Admin: 03/23/19 21:21 Dose: 1 mg Hydromorphone HCl (Dilaudid) 4 mg PO Q3H PRN PRN Reason: Pain Last Admin: 03/24/19 21:00 Dose: 4 mg Cefazolin Sodium/Dextrose 2 gm (/ Premix) 50 mls @ 100 mls/hr IV ONETIME ONE Stop: 03/24/19 13:59 Last Admin: 03/24/19 13:35 Dose: 100 mls/hr Acetaminophen 1,000 mg/ Premix 100 mls @ 200 mls/hr IV ONETIME ONE Stop: 03/24/19 15:18 Last Admin: 03/24/19 15:01 Dose: 200 mls/hr Cefazolin Sodium/Dextrose 1 gm (/ Premix) 50 mls @ 100 mls/hr IV Q8H [facility] Stop: 03/25/19 06:29 Last Admin: 03/25/19 06:23 Dose: 100 mls/hr Lidocaine HCl (Xylocaine 2% Jelly) 10 ml MUCMEM ONETIME ONE Stop: 03/24/19 20:39 Last Admin: 03/24/19 21:02 Dose: 10 ml Neostigmine Methylsulfate (Neostigmine) Confirm Administered Dose 5 mg .ROUTE .STK-MED ONE Stop: 03/24/19 13:24 Ondansetron HCl (Zofran) Confirm Administered Dose 4 mg .ROUTE .STK-MED ONE Stop: 03/24/19 13:24 Oxycodone/Acetaminophen (Percocet 325-5 Mg) 1 - 2 tab PO Q6H PRN PRN Reason: Pain Last Admin: 03/25/19 08:14 Dose: 2 tab Propofol (Diprivan 20 Ml) Confirm Administered Dose 200 mg .ROUTE .STK-MED ONE Stop: 03/24/19 13:24 Rocuronium [place] (Zemuron) Confirm Administered Dose 50 mg .ROUTE .STK-MED ONE Stop: 03/24/19 13:24 Succinylcholine Chloride (Quelicin) Confirm Administered Dose 200 mg .ROUTE .STK -MED ONE Stop: 03/24/19 13:24 - Exam Wound/Incisions: Dressing Dry and Intact, No Drainage General: Alert, Oriented Neck: Supple Extremities: Leg Pain, Limited Range of Motion, Other (still with significant swelling) Skin: Other (multiple blister secondary to swelling) Neurological: No New Focal Deficit Psy/Mental Status: Alert, Normal Affect, Normal Mood - Problem List & Annotations (1) DVT (deep venous thrombosis) SNOMED Code(s): 015053284 Code(s): I82.409 - ACUTE EMBOLISM AND THOMBOS UNSP DEEP VN UNSP LOWER EXTREMITY Status: Acute Current Visit: Yes Qualifiers: DVT location: lower extremity Affected thrombotic vein of extremity: unspecified lower extremity distal vein (2) Severe pain SNOMED Code(s): 09906190 Code(s): R52 - PAIN, UNSPECIFIED Status: Acute Current Visit: Yes (3) Nontraumatic compartment syndrome of left lower extremity SNOMED Code(s): 382271620 Code(s): M79.A22 - NONTRAUMATIC COMPARTMENT SYNDROME OF LEFT LOWER EXTREMITY Status: Acute Current Visit: Yes Annotation/Comment:: secondary to DVT (4) Hematoma of lower leg SNOMED Code(s): 311906911 Code(s): S80.10XA - CONTUSION OF UNSPECIFIED LOWER LEG, INITIAL ENCOUNTER Status: Acute Current Visit: Yes (5) Spontaneous hematoma of lower leg SNOMED Code(s): 700582492 Code(s): R23.3 - SPONTANEOUS ECCHYMOSES Status: Acute Current Visit: Yes - Problem List Review Problem List Initiated/Reviewed/Updated: Yes - My Orders Last 24 Hours: Active Orders 24 hr Category Date Time Status Admission Status [Patient Status] [ADT] Routine ADT 03/24/19 14:13 Active Dietary Supplements [RC] BIDMEALS Care 03/24/19 15:16 Active Elevate Extremity [RC] ASDIRECTED Care 03/24/19 15:10 Active Insert Byrd Catheter [Insert Urinary Catheter] [OM.PC] Care 03/24/19 20:45 Ordered Q24H Notify Provider Consults [RC] ASDIRECTED Care 03/24/19 13:53 Active Overnight Pulse Oximetry [RC] Click to Edit Care 03/24/19 22:45 Active Up With Assistance [RC] ASDIRECTED Care 03/25/19 10:28 Active Urinary Catheter Assessment [RC] ASDIRECTED Care 03/24/19 20:38 Active Consult to Physical Therapy [PT Evaluation and Cons 03/24/19 15:11 Active Treatment] [CONS] Routine Consult to Physician [CONS] Urgent Cons 03/24/19 13:53 Ordered Acetaminophen/oxyCODONE [Percocet 325-5 MG] Med 03/25/19 13:03 Active 2 tab PO Q4H PRN Docusate Sodium/Sennosides [Senna Plus] Med 03/25/19 10:30 Active 1 tab PO BID Enoxaparin [Lovenox] Med 03/25/19 21:00 Active 90 mg SUBCUT Q12H Magnesium Hydroxide [Milk of Magnesia] Med 03/25/19 10:28 Active 30 ml PO BID PRN ceFAZolin [Ancef] 1 gm Med 03/25/19 14:00 Active Premix Bag 1 bag IV Q8HR hydrOXYzine HCl [Vistaril] Med 03/24/19 16:40 Active 100 mg IM Q4H PRN tiZANidine [Zanaflex] Med 03/25/19 10:26 Active 4 mg PO Q6H PRN Convert IV to Saline Lock [OM.PC] Routine Oth 03/25/19 22:00 Ordered Pulse Oximetry Continuous Monitoring [OM.PC] Routine Oth 03/24/19 22:44 Ordered Medication Orders Diphenhydramine HCl (Benadryl) 25 mg PO Q4H PRN PRN Reason: Itching Duloxetine HCl (Cymbalta) 60 mg PO DAILY [facility] Last Admin: 03/25/19 08:10 Dose: 60 mg Admin: 03/24/19 11:49 Dose: Not Given Enoxaparin Sodium (Lovenox) 90 mg SUBCUT Q12H [facility] Hydromorphone HCl (Dilaudid) 1 mg IVPUSH Q1H PRN PRN Reason: Pain Last Admin: 03/25/19 12:36 Dose: 1 mg Admin: 03/25/19 11:36 Dose: 1 mg Admin: 03/25/19 04:14 Dose: 1 mg Admin: 03/25/19 01:15 Dose: 1 mg Admin: 03/24/19 21:15 Dose: 1 mg Admin: 03/24/19 19:39 Dose: 1 mg Admin: 03/24/19 18:22 Dose: 1 mg Admin: 03/24/19 15:28 Dose: 1 mg Admin: 03/24/19 09:58 Dose: 1 mg Admin: 03/24/19 08:37 Dose: 1 mg Admin: 03/24/19 07:08 Dose: 1 mg Admin: 03/24/19 05:59 Dose: 1 mg Admin: 03/24/19 04:44 Dose: 1 mg Admin: 03/24/19 03:42 Dose: 1 mg Admin: 03/24/19 02:42 Dose: 1 mg Admin: 03/24/19 01:48 Dose: 1 mg Admin: 03/24/19 00:40 Dose: 1 mg Admin: 03/23/19 23:58 Dose: 1 mg Admin: 03/23/19 22:53 Dose: 1 mg Hydroxyzine HCl (Vistaril) 100 mg IM Q4H PRN PRN Reason: Pain (severe 7-10) Last Admin: 03/25/19 09:29 Dose: 100 mg Admin: 03/25/19 01:15 Dose: 100 mg Admin: 03/24/19 21:18 Dose: 100 mg Admin: 03/24/19 17:05 Dose: 100 mg Cefazolin Sodium/Dextrose 1 gm (/ Premix) 50 mls @ 100 mls/hr IV Q8HR [facility] Stop: 03/25/19 22:29 Magnesium Hydroxide (Milk Of Magnesia) 30 ml PO BID PRN PRN Reason: Constipation Oxycodone/Acetaminophen (Percocet 325-5 Mg) 2 tab PO Q4H PRN PRN Reason: Pain Last Admin: 03/25/19 13:16 Dose: 2 tab Pantoprazole Sodium (Protonix) 40 mg PO BIDAC [facility] Last Admin: 03/25/19 08:10 Dose: 40 mg Admin: 03/24/19 17:08 Dose: 40 mg Admin: 03/24/19 07:28 Dose: 40 mg Senna/Docusate Sodium (Senna Plus) 1 tab PO BID [facility] Last Admin: 03/25/19 11:40 Dose: 1 tab Sodium Chloride (Saline Flush) 10 ml FLUSH ASDIRECTED PRN PRN Reason: Keep Vein Open Last Admin: 03/24/19 08:37 Dose: 10 ml Admin: 03/24/19 00:43 Dose: 10 ml Admin: 03/24/19 00:00 Dose: 10 ml Tamsulosin HCl (Flomax) 0.4 mg PO DAILY [facility] Last Admin: 03/25/19 08:10 Dose: 0.4 mg Admin: 03/24/19 11:49 Dose: Not Given Tizanidine HCl (Zanaflex) 4 mg PO Q6H PRN PRN Reason: Muscle Spasm Last Admin: 03/25/19 10:46 Dose: 4 mg Trazodone HCl (Trazodone) 150 mg PO BEDTIME [facility] Last Admin: 03/24/19 21:01 Dose: 150 mg Admin: 03/24/19 01:03 Dose: 150 mg - Assessment Assessment (Free Text/Narrative):: Dressing changed, multiple blisters and leg still tight. He has not been the best at keeping the leg elevated. OK to restart anticoagulation for DVT. - Plan Plan (Free Text/Narrative):: Elevation and light compression for swelling. OK to be up for short intervals with PT, TTWB on left. I can follow as outpt on discharge. Do not recommend [address] to [place] until swelling improved.
[2019-03-25] MEDS: traZODone 50 MG Tab PO SCH (21:58)
[2019-03-26] MEDS: tiZANidine 4 MG Tab PO PRN ×2 (01:20→09:49)
[2019-03-26] MEDS: hydrOXYzine HCl 100 MG/2 ML SDV IM PRN (01:20)
[2019-03-26] MEDS: HYDROmorphone 1 MG/ML Syringe IVPUSH PRN ×3 (01:48→15:25)
[2019-03-26] MEDS: Acetaminophen/oxyCODONE 325-5 MG Tab PO PRN ×3 (01:48→20:04)
[2019-03-26] MEDS: Pantoprazole 40 MG Tab.CR PO SCH ×2 (08:23→16:49)
[2019-03-26] MEDS: DULoxetine 30 MG Cap PO SCH (08:24)
[2019-03-26] MEDS: Tamsulosin 0.4 MG Cap.ER PO SCH (08:24)
[2019-03-26] MEDS: Enoxaparin 100 MG/1 ML Syringe SUBCUT SCH (08:25)
[2019-03-26] MEDS ORDERED: fentaNYL 100 MCG/2 ML SDV IVPUSH ONE (10:55)
[2019-03-26] MEDS ORDERED: ceFAZolin 2 GM in Premix Bag 1 BAG IV ONE (11:00)
--- NOTE | 2019-03-26 11:01 | PCM.PN ---
- General Info Date of Service: 03/26/19 Subjective Update: Patient did well through the day yesterday but overnight had increasing difficulty with pain in the left lower leg. Pain is back to severe. He feels like his foot is numb. Pulses are obtainable only with Doppler. He has not been very compliant with keeping his leg elevated. He did have a low-grade fever overnight. Hemoglobin level stable so far. He did receive blood thinning medications for treatment of his DVT last night and this morning. Functional Status: Denies: Pain Controlled - Review of Systems General: Reports: Fever Musculoskeletal: Reports: Leg Pain, Foot Pain - Patient Data Vitals - Most Recent: Last Vital Signs Temp 36.8 C 03/26/19 07:57 Pulse 86 03/26/19 07:57 Resp 16 03/26/19 07:57 BP 118/73 03/26/19 07:57 Pulse Ox 96 03/26/19 07:57 Weight - Most Recent: 90.7 kg I&O - Last 24 Hours: Intake & Output 03/25/19 03/26/19 03/26/19 22:59 06:59 14:59 Intake Total 1300 550 Output Total 1200 625 Balance 100 -75 Med Orders - Current: Current Medications Diphenhydramine HCl (Benadryl) 25 mg PO Q4H PRN PRN Reason: Itching Duloxetine HCl (Cymbalta) 60 mg PO DAILY JAY Last Admin: 03/26/19 08:24 Dose: 60 mg Enoxaparin Sodium (Lovenox) 90 mg SUBCUT Q12H [facility]AY Last Admin: 03/26/19 08:25 Dose: 90 mg Hydromorphone HCl (Dilaudid) 1 mg IVPUSH Q1H PRN PRN Reason: Pain Last Admin: 03/26/19 03:16 Dose: 1 mg Hydroxyzine HCl (Vistaril) 100 mg IM Q4H PRN PRN Reason: Pain (severe 7-10) Last Admin: 03/26/19 01:20 Dose: 100 mg Cefazolin Sodium/Dextrose 2 gm (/ Premix) 50 mls @ 100 mls/hr IV ONETIME ONE Stop: 03/26/19 11:29 Magnesium Hydroxide (Milk Of Magnesia) 30 ml PO BID PRN PRN Reason: Constipation Oxycodone/Acetaminophen (Percocet 325-5 Mg) 2 tab PO Q4H PRN PRN Reason: Pain Last Admin: 03/26/19 08:22 Dose: 2 tab Pantoprazole Sodium (Protonix) 40 mg PO BIDAC [facility] Last Admin: 03/26/19 08:23 Dose: 40 mg Senna/Docusate Sodium (Senna Plus) 1 tab PO BID [facility] Last Admin: 03/26/19 08:24 Dose: 1 tab Sodium Chloride (Saline Flush) 10 ml FLUSH ASDIRECTED PRN PRN Reason: Keep Vein Open Last Admin: 03/24/19 08:37 Dose: 10 ml Tamsulosin HCl (Flomax) 0.4 mg PO DAILY [facility] Last Admin: 03/26/19 08:24 Dose: 0.4 mg Tizanidine HCl (Zanaflex) 4 mg PO Q6H PRN PRN Reason: Muscle Spasm Last Admin: 03/26/19 09:49 Dose: 4 mg Trazodone HCl (Trazodone) 150 mg PO BEDTIME [facility] Last Admin: 03/25/19 21:58 Dose: 150 mg Discontinued Medications Bupivacaine HCl/Epinephrine Bitart (Marcaine 0.5%/Epinephrine 1:200,000) Confirm Administered Dose 50 ml .ROUTE .STK-MED ONE Stop: 03/24/19 12:49 Cyclobenzaprine HCl (Flexeril) 10 mg PO Q8H PRN PRN Reason: Spasms Last Admin: 03/25/19 04:14 Dose: 10 mg Dexamethasone (Dexamethasone) Confirm Administered Dose 4 mg .ROUTE .STK-MED ONE Stop: 03/24/19 13:24 Enoxaparin Sodium (Lovenox) 100 mg SUBCUT Q12H [facility] Last Admin: 03/25/19 10:16 Dose: 100 mg Fentanyl (Sublimaze) 50 mcg IVPUSH ONETIME ONE Stop: 03/24/19 11:53 Last Admin: 03/24/19 12:11 Dose: 50 mcg Fentanyl (Sublimaze) Confirm Administered Dose 250 mcg .ROUTE .STK-MED ONE Stop: 03/24/19 13:23 Fentanyl (Sublimaze) Confirm Administered Dose 250 mcg .ROUTE .STK-MED ONE Stop: 03/24/19 13:48 Fentanyl (Sublimaze) 50 mcg IVPUSH ONETIME ONE Stop: 03/24/19 14:30 Last Admin: 03/24/19 14:38 Dose: 50 mcg Fentanyl (Sublimaze) 50 mcg IVPUSH ONETIME ONE Stop: 03/24/19 14:49 Last Admin: 03/24/19 14:52 Dose: 50 mcg Fentanyl (Sublimaze) 50 mcg IVPUSH Q1H PRN PRN Reason: Pain (severe 7-10) Last Admin: 03/24/19 23:16 Dose: 50 mcg Fentanyl (Sublimaze) 50 mcg IVPUSH ONETIME ONE Stop: 03/26/19 10:56 Glycopyrrolate (Robinul) Confirm Administered Dose 1 mg .ROUTE .STK-MED ONE Stop: 03/24/19 13:24 Hydromorphone HCl (Dilaudid) 1 mg IM ONETIME ONE Stop: 03/23/19 19:15 Last Admin: 03/23/19 19:20 Dose: 1 mg Hydromorphone HCl (Dilaudid) 2 mg PO Q8H ONE Stop: 03/23/19 19:45 Last Admin: 03/23/19 20:00 Dose: 2 mg Hydromorphone HCl (Dilaudid) 1 mg IVPUSH Q1H ONE Stop: 03/23/19 21:16 Last Admin: 03/23/19 21:21 Dose: 1 mg Hydromorphone HCl (Dilaudid) 4 mg PO Q3H PRN PRN Reason: Pain Last Admin: 03/24/19 21:00 Dose: 4 mg Cefazolin Sodium/Dextrose 2 gm (/ Premix) 50 mls @ 100 mls/hr IV ONETIME ONE Stop: 03/24/19 13:59 Last Admin: 03/24/19 13:35 Dose: 100 mls/hr Acetaminophen 1,000 mg/ Premix 100 mls @ 200 mls/hr IV ONETIME ONE Stop: 03/24/19 15:18 Last Admin: 03/24/19 15:01 Dose: 200 mls/hr Cefazolin Sodium/Dextrose 1 gm (/ Premix) 50 mls @ 100 mls/hr IV Q8H [facility] Stop: 03/25/19 06:29 Last Admin: 03/25/19 06:23 Dose: 100 mls/hr Cefazolin Sodium/Dextrose 1 gm (/ Premix) 50 mls @ 100 mls/hr IV Q8HR [facility] Stop: 03/25/19 22:29 Last Admin: 03/25/19 22:58 Dose: 100 mls/hr Lidocaine HCl (Xylocaine 2% Jelly) 10 ml MUCMEM ONETIME ONE Stop: 03/24/19 20:39 Last Admin: 03/24/19 21:02 Dose: 10 ml Neostigmine Methylsulfate (Neostigmine) Confirm Administered Dose 5 mg .ROUTE .STK-MED ONE Stop: 03/24/19 13:24 Ondansetron HCl (Zofran) Confirm Administered Dose 4 mg .ROUTE .STK-MED ONE Stop: 03/24/19 13:24 Oxycodone/Acetaminophen (Percocet 325-5 Mg) 1 - 2 tab PO Q6H PRN PRN Reason: Pain Last Admin: 03/25/19 08:14 Dose: 2 tab Propofol (Diprivan 20 Ml) Confirm Administered Dose 200 mg .ROUTE .STK-MED ONE Stop: 03/24/19 13:24 Rocuronium [place] (Zemuron) Confirm Administered Dose 50 mg .ROUTE .STK-MED ONE Stop: 03/24/19 13:24 Succinylcholine Chloride (Quelicin) Confirm Administered Dose 200 mg .ROUTE .STK -MED ONE Stop: 03/24/19 13:24 - Exam Quality Assessment: No: Supplemental Oxygen General: Alert, Oriented, Cooperative, Moderate Distress Lungs: Normal Respiratory Effort Cardiovascular: Regular Rate, Regular Rhythm GI/Abdominal Exam: Soft, No Distention Extremities: Pedal Edema (left leg from just proximal to the knee all the way to the foot), Increased Warmth (entire left leg from the knee distally ) Skin: Warm, Dry, Ecchymosis (left lower leg ) Psy/Mental Status: Alert, Normal Affect - Problem List Review Problem List Initiated/Reviewed/Updated: Yes - My Orders Last 24 Hours: My Active Orders 03/25/19 10:26 tiZANidine [Zanaflex] 4 mg PO Q6H PRN 03/25/19 10:28 Up With Assistance [RC] ASDIRECTED Magnesium Hydroxide [Milk of Magnesia] 30 ml PO BID PRN 03/25/19 10:30 Docusate Sodium/Sennosides [Senna Plus] 1 tab PO BID 03/25/19 13:03 Acetaminophen/oxyCODONE [Percocet 325-5 MG] 2 tab PO Q4H PRN 03/25/19 21:00 Enoxaparin [Lovenox] 90 mg SUBCUT Q12H 03/27/19 05:00 BASIC METABOLIC PANEL,BMP [CHEM] Timed CBC W/O DIFF,HEMOGRAM [HEME] Timed (1) - Plan Plan:: ASSESSMENT AND PLAN - Large left lower extremity hematoma with compartment syndrome - I'm worried that his compartment syndrome has returned with his severe pain and very tense swelling of the left lower leg. Orthopedic surgery assistance appreciated. -Second surgical exploration planned this morning -Pain control -Trial of muscle relaxer -Hold systemic anticoagulation Left leg DVT - identified with ultrasound at the time of admission. Anticoagulation restarted last night but I'm concerned he may be bleeding again and that will be discontinued for the time being. -Hold anticoagulation -Transition to oral medications once stable Recent left knee arthroplasty - performed at [facility]. -Outpatient follow-up Maintenance issues - - DVT prophylaxis - enoxaparin - GI prophylaxis - not indicated - Nutrition - regular diet Disposition - I would anticipate discharge home after the hospital stay Socrates Lilly M.D.
[2019-03-26] MEDS ORDERED: fentaNYL 250 MCG/5 ML SDV ONE ×2 (13:05→13:08)
[2019-03-26] MEDS ORDERED: Neostigmine Methylsulfate 1 MG/ML 5 ML Syringe ONE (13:06)
[2019-03-26] MEDS ORDERED: Rocuronium 50 MG/5 ML Vial ONE ×2 (13:06→13:08)
[2019-03-26] MEDS ORDERED: Glycopyrrolate 0.2 MG/ML 5 ML MDV ONE (13:06)
[2019-03-26] MEDS ORDERED: Succinylcholine 200 MG/10 ML MDV ONE (13:06)
[2019-03-26] MEDS ORDERED: Propofol 200 MG/20 ML SDV ONE (13:06)
[2019-03-26] MEDS ORDERED: Ondansetron 4 MG/2 ML SDV ONE (13:06)
[2019-03-26] MEDS ORDERED: Dexamethasone 4 MG/ML SDV ONE (13:06)
[2019-03-26] MEDS ORDERED: Sodium Chloride 0.9% 1,000 ML IV SCH (15:15)
--- NOTE | 2019-03-26 19:03 | OR ---
DATE OF PROCEDURE: 03/24/2019 PREOPERATIVE DIAGNOSIS: Compartment syndrome, left leg. POSTOPERATIVE DIAGNOSIS: 1. Compartment syndrome, left leg. 2. Hematoma, superficial posterior compartment, left leg. ANESTHESIA: General. PROCEDURES: 1. Three-compartment fasciotomy, left leg including anterior, peroneal, and superficial posterior. 2. Evacuation of hematoma, left leg. INDICATIONS: Mr. Whitfield is a 68-year-old gentleman, who underwent a medial unicompartmental arthroplasty of his left knee, March 14, in another institution. He had been doing quite well and was up and about without difficulty. He was traveling from [place] and developed significant quite rapid swelling of his left leg with pain. He was evaluated in the emergency room here and found to have a DVT at the popliteal and tibial veins. Throughout the course of the night, developed increasing pain, swelling, tightness in the left leg. Evaluation the next day revealed a very taut calf, pulse difficult to palpate, and pain with any motion of the foot or ankle with pain on passive motion of the toes. He is therefore taken to the operating room for decompression for suspected compartment syndrome due to DVT. Risks, benefits, and potential complications of the procedure including risks and benefits of nonoperative treatment or transfer to another facility. DESCRIPTION OF PROCEDURE: After adequate anesthesia was obtained, the left leg was prepped and draped in a sterile fashion. Incision was initially made over the lateral aspect of the leg, carried down through the subcutaneous tissues. Fascia over the anterior compartment was identified. This was split with a Metzenbaum scissor. There was moderate tension in the anterior compartment, but not dramatic and no evidence of tissue necrosis. Fascia was split proximally and distally subcutaneously through the smaller lateral incision. Blunt dissection then carried out posteriorly over the peroneal fascia. This was split in a similar manner. Again, mild tension was noted on the muscle with no obvious tissue damage. Fascia was split proximally and distally. Incision was then left open. Incision was then made in the medial aspect of the leg just slightly posterior to the medial ridge of the tibia. The skin was incised. Fascia over the superficial compartment was incised and this showed much more significant pressure. Upon dissecting further, a large hematoma was present under significant pressure just beneath the fascia in the superficial compartment. This consisted primarily of clotted blood. This was thoroughly evacuated manually as well as with suction and then irrigated with pulse lavage. This significantly decompressed the superficial compartment and the entire leg. The deep posterior compartment was evaluated and found to be soft with no evidence of increased pressures, and fasciotomy was not performed in the deep compartment. Both wounds were irrigated. Due to the significant decompression, both wounds were then closed with 2-0 Vicryl and 3-0 Monocryl, as there was no evidence of ongoing compartment syndrome, which were then dressed with Xeroform gauze, 4x4s, ABDs, and a light compressive dressing with an Jack bandage. The patient tolerated the procedure very well. There were no complications. He was taken from the operating room in stable condition. Barrett Jackson MD /[id number]
[2019-03-26] MEDS ORDERED: Sodium Phosphate,Monobasic/Sodium Phosphate,Dibasic Enema 133 ML Bottle RECTAL ONE (19:41)
[2019-03-26] MEDS: traZODone 50 MG Tab PO SCH (20:04)
[2019-03-26] MEDS: ceFAZolin 1 GM in Premix Bag 1 BAG IV SCH (22:24)
[2019-03-27] MEDS: Acetaminophen/oxyCODONE 325-5 MG Tab PO PRN ×5 (03:01→19:27)
[2019-03-27] MEDS: ceFAZolin 1 GM in Premix Bag 1 BAG IV SCH ×2 (05:28→13:13)
[2019-03-27] MEDS: Tamsulosin 0.4 MG Cap.ER PO SCH (09:23)
[2019-03-27] MEDS: Pantoprazole 40 MG Tab.CR PO SCH ×2 (09:23→15:29)
[2019-03-27] MEDS: DULoxetine 30 MG Cap PO SCH (09:23)
--- NOTE | 2019-03-27 12:52 | PCM.PN ---
- General Info Date of Service: 03/27/19 Subjective Update: Mr. Whitfield has been stable since surgery yesterday, current pain control has been adequate. He has remained hemodynamically stable and afebrile. Hemoglobin did drop to 7.5 this morning Functional Status: Reports: Pain Controlled, Tolerating Diet, Urinating - Review of Systems General: Denies: Fever, Chills Pulmonary: Reports: No Symptoms Cardiovascular: Reports: No Symptoms Gastrointestinal: Reports: No Symptoms Musculoskeletal: Reports: Leg Pain - Patient Data Vitals - Most Recent: Last Vital Signs Temp 98.7 F 03/27/19 11:30 Pulse 80 03/27/19 11:30 Resp 16 03/27/19 11:30 BP 117/66 03/27/19 11:30 Pulse Ox 95 03/27/19 12:36 Weight - Most Recent: 199 lb 15.348 oz I&O - Last 24 Hours: Intake & Output 03/26/19 03/27/19 03/27/19 22:59 06:59 14:59 Intake Total 985 1245 240 Output Total 350 2250 Balance 635 -1005 240 Lab Results Last 24 Hours: Laboratory Results - last 24 hr 03/27/19 03/27/19 03/27/19 Range/Units 04:40 05:00 08:30 WBC 11.9 H (4.5-11.0) K/uL RBC 2.50 L (4.30-5.90) M/uL Hgb 7.5 L D (12.0-15.0) g/dL Hct 23.8 L (40.0-54.0) % MCV 95 (80-98) fL MCH 30 (27-31) pg MCHC 32 (32-36) % Plt Count 252 (150-400) K/uL Sodium 138 L (140-148) mmol/L Potassium 4.4 (3.6-5.2) mmol/L Chloride 104 (100-108) mmol/L Carbon Dioxide 29 (21-32) mmol/L Anion Gap 9.4 (5.0-14.0) mmol/L BUN 13 (7-18) mg/dL Creatinine 0.9 (0.8-1.3) mg/dL Est Cr Clr Drug Dosing 81.01 mL/min Estimated GFR (MDRD) > 60 (>60) Glucose 131 H (74-106) mg/dL Calcium 8.2 L (8.5-10.1) mg/dL Blood Type A POSITIVE Gel Antibody Screen Negative Crossmatch See Detail Yamil Results Last 24 Hours: Microbiology 03/26/19 13:50 Gram Stain - Final Knee, Left Med Orders - Current: Current Medications Diphenhydramine HCl (Benadryl) 25 mg PO Q4H PRN PRN Reason: Itching Duloxetine HCl (Cymbalta) 60 mg PO DAILY [facility] Last Admin: 03/27/19 09:23 Dose: 60 mg Ferrous Sulfate (Ferrous Sulfate) 325 mg PO BIDMEALS [facility] Hydromorphone HCl (Dilaudid) 1 mg IVPUSH Q1H PRN PRN Reason: Pain Last Admin: 03/26/19 15:25 Dose: 1 mg Hydroxyzine HCl (Vistaril) 100 mg IM Q4H PRN PRN Reason: Pain (severe 7-10) Last Admin: 03/26/19 01:20 Dose: 100 mg Cefazolin Sodium/Dextrose 1 gm (/ Premix) 50 mls @ 100 mls/hr IV Q8HR [facility] Stop: 03/27/19 14:29 Last Admin: 03/27/19 05:28 Dose: 100 mls/hr Sodium Chloride (Normal Saline) 1,000 mls @ 50 mls/hr IV ASDIRECTED [facility] Last Admin: 03/26/19 15:26 Dose: 50 mls/hr Magnesium Hydroxide (Milk Of Magnesia) 30 ml PO BID PRN PRN Reason: Constipation Oxycodone/Acetaminophen (Percocet 325-5 Mg) 2 tab PO Q4H PRN PRN Reason: Pain Last Admin: 03/27/19 11:37 Dose: 2 tab Pantoprazole Sodium (Protonix) 40 mg PO BIDAC [facility] Last Admin: 03/27/19 09:23 Dose: 40 mg Senna/Docusate Sodium (Senna Plus) 1 tab PO BID [facility] Last Admin: 03/27/19 09:23 Dose: 1 tab Sodium Chloride (Saline Flush) 10 ml FLUSH ASDIRECTED PRN PRN Reason: Keep Vein Open Last Admin: 03/24/19 08:37 Dose: 10 ml Tamsulosin HCl (Flomax) 0.4 mg PO DAILY [facility] Last Admin: 03/27/19 09:23 Dose: 0.4 mg Tizanidine HCl (Zanaflex) 4 mg PO Q6H PRN PRN Reason: Muscle Spasm Last Admin: 03/26/19 09:49 Dose: 4 mg Trazodone HCl (Trazodone) 150 mg PO BEDTIME [facility] Last Admin: 03/26/19 20:04 Dose: 150 mg Discontinued Medications Bupivacaine HCl/Epinephrine Bitart (Marcaine 0.5%/Epinephrine 1:200,000) Confirm Administered Dose 50 ml .ROUTE .STK-MED ONE Stop: 03/24/19 12:49 Cyclobenzaprine HCl (Flexeril) 10 mg PO Q8H PRN PRN Reason: Spasms Last Admin: 03/25/19 04:14 Dose: 10 mg Dexamethasone (Dexamethasone) Confirm Administered Dose 4 mg .ROUTE .STK-MED ONE Stop: 03/24/19 13:24 Dexamethasone (Dexamethasone) Confirm Administered Dose 4 mg .ROUTE .STK-MED ONE Stop: 03/26/19 13:07 Enoxaparin Sodium (Lovenox) 100 mg SUBCUT Q12H [facility] Last Admin: 03/25/19 10:16 Dose: 100 mg Enoxaparin Sodium (Lovenox) 90 mg SUBCUT Q12H [facility] Last Admin: 03/26/19 08:25 Dose: 90 mg Fentanyl (Sublimaze) 50 mcg IVPUSH ONETIME ONE Stop: 03/24/19 11:53 Last Admin: 03/24/19 12:11 Dose: 50 mcg Fentanyl (Sublimaze) Confirm Administered Dose 250 mcg .ROUTE .STK-MED ONE Stop: 03/24/19 13:23 Fentanyl (Sublimaze) Confirm Administered Dose 250 mcg .ROUTE .STK-MED ONE Stop: 03/24/19 13:48 Fentanyl (Sublimaze) 50 mcg IVPUSH ONETIME ONE Stop: 03/24/19 14:30 Last Admin: 03/24/19 14:38 Dose: 50 mcg Fentanyl (Sublimaze) 50 mcg IVPUSH ONETIME ONE Stop: 03/24/19 14:49 Last Admin: 03/24/19 14:52 Dose: 50 mcg Fentanyl (Sublimaze) 50 mcg IVPUSH Q1H PRN PRN Reason: Pain (severe 7-10) Last Admin: 03/24/19 23:16 Dose: 50 mcg Fentanyl (Sublimaze) 50 mcg IVPUSH ONETIME ONE Stop: 03/26/19 10:56 Last Admin: 03/26/19 11:08 Dose: 50 mcg Fentanyl (Sublimaze) Confirm Administered Dose 250 mcg .ROUTE .STK-MED ONE Stop: 03/26/19 13:06 Fentanyl (Sublimaze) Confirm Administered Dose 250 mcg .ROUTE .STK-MED ONE Stop: 03/26/19 13:09 Glycopyrrolate (Robinul) Confirm Administered Dose 1 mg .ROUTE .STK-MED ONE Stop: 03/24/19 13:24 Glycopyrrolate (Robinul) Confirm Administered Dose 1 mg .ROUTE .STK-MED ONE Stop: 03/26/19 13:07 Hydromorphone HCl (Dilaudid) 1 mg IM ONETIME ONE Stop: 03/23/19 19:15 Last Admin: 03/23/19 19:20 Dose: 1 mg Hydromorphone HCl (Dilaudid) 2 mg PO Q8H ONE Stop: 03/23/19 19:45 Last Admin: 03/23/19 20:00 Dose: 2 mg Hydromorphone HCl (Dilaudid) 1 mg IVPUSH Q1H ONE Stop: 03/23/19 21:16 Last Admin: 03/23/19 21:21 Dose: 1 mg Hydromorphone HCl (Dilaudid) 4 mg PO Q3H PRN PRN Reason: Pain Last Admin: 03/24/19 21:00 Dose: 4 mg Cefazolin Sodium/Dextrose 2 gm (/ Premix) 50 mls @ 100 mls/hr IV ONETIME ONE Stop: 03/24/19 13:59 Last Admin: 03/24/19 13:35 Dose: 100 mls/hr Acetaminophen 1,000 mg/ Premix 100 mls @ 200 mls/hr IV ONETIME ONE Stop: 03/24/19 15:18 Last Admin: 03/24/19 15:01 Dose: 200 mls/hr Cefazolin Sodium/Dextrose 1 gm (/ Premix) 50 mls @ 100 mls/hr IV Q8H [facility] Stop: 03/25/19 06:29 Last Admin: 03/25/19 06:23 Dose: 100 mls/hr Cefazolin Sodium/Dextrose 1 gm (/ Premix) 50 mls @ 100 mls/hr IV Q8HR [facility] Stop: 03/25/19 22:29 Last Admin: 03/25/19 22:58 Dose: 100 mls/hr Cefazolin Sodium/Dextrose 2 gm (/ Premix) 50 mls @ 100 mls/hr IV ONETIME ONE Stop: 03/26/19 11:29 Last Admin: 03/26/19 11:19 Dose: 100 mls/hr Lidocaine HCl (Xylocaine 2% Jelly) 10 ml MUCMEM ONETIME ONE Stop: 03/24/19 20:39 Last Admin: 03/24/19 21:02 Dose: 10 ml Neostigmine Methylsulfate (Neostigmine) Confirm Administered Dose 5 mg .ROUTE .STK-MED ONE Stop: 03/24/19 13:24 Neostigmine Methylsulfate (Neostigmine) Confirm Administered Dose 5 mg .ROUTE .STK-MED ONE Stop: 03/26/19 13:07 Ondansetron HCl (Zofran) Confirm Administered Dose 4 mg .ROUTE .STK-MED ONE Stop: 03/24/19 13:24 Ondansetron HCl (Zofran) Confirm Administered Dose 4 mg .ROUTE .STK-MED ONE Stop: 03/26/19 13:07 Oxycodone/Acetaminophen (Percocet 325-5 Mg) 1 - 2 tab PO Q6H PRN PRN Reason: Pain Last Admin: 03/25/19 08:14 Dose: 2 tab Propofol (Diprivan 20 Ml) Confirm Administered Dose 200 mg .ROUTE .STK-MED ONE Stop: 03/24/19 13:24 Propofol (Diprivan 20 Ml) Confirm Administered Dose 200 mg .ROUTE .STK-MED ONE Stop: 03/26/19 13:07 Rocuronium [place] (Zemuron) Confirm Administered Dose 50 mg .ROUTE .STK-MED ONE Stop: 03/24/19 13:24 Rocuronium [place] (Zemuron) Confirm Administered Dose 50 mg .ROUTE .STK-MED ONE Stop: 03/26/19 13:07 Rocuronium [place] (Zemuron) Confirm Administered Dose 50 mg .ROUTE .STK-MED ONE Stop: 03/26/19 13:09 Sodium Biphosphate/Sodium Phosphate (Fleet Enema) 133 ml RECTAL ONETIME ONE Stop: 03/26/19 19:42 Last Admin: 03/26/19 20:04 Dose: 133 ml Succinylcholine Chloride (Quelicin) Confirm Administered Dose 200 mg .ROUTE .STK -MED ONE Stop: 03/24/19 13:24 Succinylcholine Chloride (Quelicin) Confirm Administered Dose 200 mg .ROUTE .STK -MED ONE Stop: 03/26/19 13:07 - Exam General: Alert, Oriented, Cooperative, Mild Distress Lungs: Clear to Auscultation, Normal Respiratory Effort Cardiovascular: Regular Rate, Regular Rhythm, No Murmurs GI/Abdominal Exam: Soft, Non-Tender, No Organomegaly, No Distention - Problem List Review Problem List Initiated/Reviewed/Updated: Yes - My Orders Last 24 Hours: My Active Orders 03/27/19 08:30 PATIENT RETYPE [BBK] Urgent RED BLOOD CELLS LP [BBK] Urgent TYPE AND SCREEN [BBK] Urgent 03/27/19 12:45 Transfuse Red Blood Cells [COMM] Urgent 03/27/19 17:00 HGB [HEMOGLOBIN] [HEME] Stat Ferrous Sulfate 325 mg PO BIDMEALS 03/28/19 05:00 BASIC METABOLIC PANEL,BMP [CHEM] Timed CBC WITH AUTO DIFF [HEME] Timed - Plan Plan:: ASSESSMENT AND PLAN - Large left lower extremity hematoma with compartment syndrome - [facility] second surgery yesterday morning -Pain control -Trial of muscle relaxer -Hold systemic anticoagulation Acute blood loss anemia-hemoglobin down to 7.5 with evidence of some ongoing bleeding -Transfuse 1 unit of red blood cells -Reassess hemoglobin later today and in a.m. Left leg DVT - identified with ultrasound at the time of admission. Anticoagulation discontinued because of compartment syndrome and ongoing bleeding -Hold anticoagulation -Transition to oral medications once stable -Follow-up ultrasound in a.m., to evaluate for possible extension of DVT Recent left knee arthroplasty - performed at [facility]. -Outpatient follow-up Maintenance issues - - DVT prophylaxis - enoxaparin - GI prophylaxis - not indicated - Nutrition - regular diet Disposition - I would anticipate discharge home after the hospital stay
--- NOTE | 2019-03-27 16:22 | CRLUS ---
INDICATION: Follow-up left leg DVT Comparison: DVT ultrasound 03/23/2019 TECHNIQUE: A compression venous ultrasound exam was performed of the left lower extremity using garcía-scale imaging, color Doppler and spectral Doppler analysis. FINDINGS: Sonographic imaging of the left lower extremity demonstrates normal compressibility and color Doppler venous blood flow within the common femoral vein, deep femoral vein, and the proximal greater saphenous vein. Within the thigh, the femoral vein is patent and compressible. At a lower level, the popliteal and posterior tibial veins also show normal compressibility and color Doppler venous blood flow. Limited imaging of the contralateral groin demonstrates a normal spectral waveform and color Doppler venous blood flow within the right common femoral vein. There is a large complex fluid collection left popliteal fossa most likely reflecting hematoma which measures 7.8 x 4 x 2.1 centimeters. IMPRESSION: No evidence of deep vein thrombosis within the left lower extremity. Large 7.8 x 4 x 2.1 cm minimally complex fluid collection in the left popliteal fossa which may reflect evolving or maturing hematoma, postoperative fluid collection or possibly a complex Gomes`s cyst. In retrospect this is at the same location as the previous presumed deep venous thrombus with no thrombus currently identified. Results called to Dr. Gallego on 03/27/2019 on 4:20 pm. Dictated by Katerine Moulton MD @ Mar 27 2019 4:07PM Signed by Dr. Katerine Moulton @ Mar 27 2019 4:20PM
[2019-03-27] MEDS: Ferrous Sulfate 325 MG Tab PO SCH (17:56)
[2019-03-27] MEDS: traZODone 50 MG Tab PO SCH (20:27)
[2019-03-28] MEDS: Acetaminophen/oxyCODONE 325-5 MG Tab PO PRN ×6 (00:37→21:52)
[2019-03-28] MEDS: Pantoprazole 40 MG Tab.CR PO SCH ×2 (07:30→17:46)
[2019-03-28] MEDS: Ferrous Sulfate 325 MG Tab PO SCH ×2 (07:30→17:45)
[2019-03-28] MEDS: DULoxetine 30 MG Cap PO SCH (09:29)
[2019-03-28] MEDS: Tamsulosin 0.4 MG Cap.ER PO SCH (09:29)
[2019-03-28] MEDS: HYDROmorphone 1 MG/ML Syringe IVPUSH PRN (11:40)
--- NOTE | 2019-03-28 12:34 | PCM.PN ---
- General Info Date of Service: 03/28/19 Subjective Update: Mr. Whitfield is shown evidence of ongoing bleeding with increased pain in the leg and drop in hemoglobin from yesterday. Vital signs have remained stable and he has been afebrile. Functional Status: Reports: Urinating - Review of Systems General: Reports: Weakness, Fatigue, Malaise. Denies: Fever, Chills Pulmonary: Reports: No Symptoms Cardiovascular: Reports: No Symptoms Gastrointestinal: Reports: No Symptoms Musculoskeletal: Reports: Leg Pain (Dressing is in place left lower leg) - Patient Data Vitals - Most Recent: Last Vital Signs Temp 100.4 F 03/28/19 12:00 Pulse 92 03/28/19 12:00 Resp 18 03/28/19 12:00 BP 132/86 03/28/19 12:00 Pulse Ox 95 03/28/19 09:00 Weight - Most Recent: 199 lb 15.348 oz I&O - Last 24 Hours: Intake & Output 03/27/19 03/28/19 03/28/19 22:59 06:59 14:59 Intake Total 985 2226 360 Output Total 800 Balance 985 1426 360 Lab Results Last 24 Hours: Laboratory Results - last 24 hr 03/27/19 03/27/19 03/28/19 Range/Units 08:30 18:13 04:15 WBC 8.0 (4.5-11.0) K/uL RBC 2.58 L (4.30-5.90) M/uL Hgb 9.1 L 7.7 L (12.0-15.0) g/dL Hct 24.0 L (40.0-54.0) % MCV 93 (80-98) fL MCH 30 (27-31) pg MCHC 32 (32-36) % Plt Count 253 (150-400) K/uL Neut % (Auto) 75 H (36-66) % Lymph % (Auto) 11 L (24-44) % Mccreary % (Auto) 13 H (2-6) % Eos % (Auto) 1 L (2-4) % Baso % (Auto) 0 (0-1) % Sodium (140-148) mmol/L Potassium (3.6-5.2) mmol/L Chloride (100-108) mmol/L Carbon Dioxide (21-32) mmol/L Anion Gap (5.0-14.0) mmol/L BUN (7-18) mg/dL Creatinine (0.8-1.3) mg/dL Est Cr Clr Drug Dosing mL/min Estimated GFR (MDRD) (>60) Glucose (74-106) mg/dL Calcium (8.5-10.1) mg/dL Blood Type A POSITIVE Gel Antibody Screen Negative Crossmatch See Detail 03/28/19 Range/Units 04:15 WBC (4.5-11.0) K/uL RBC (4.30-5.90) M/uL Hgb (12.0-15.0) g/dL Hct (40.0-54.0) % MCV (80-98) fL MCH (27-31) pg MCHC (32-36) % Plt Count (150-400) K/uL Neut % (Auto) (36-66) % Lymph % (Auto) (24-44) % Mccreary % (Auto) (2-6) % Eos % (Auto) (2-4) % Baso % (Auto) (0-1) % Sodium 139 L (140-148) mmol/L Potassium 3.8 (3.6-5.2) mmol/L Chloride 105 (100-108) mmol/L Carbon Dioxide 28 (21-32) mmol/L Anion Gap 9.8 (5.0-14.0) mmol/L BUN 14 (7-18) mg/dL Creatinine 0.9 (0.8-1.3) mg/dL Est Cr Clr Drug Dosing 81.01 mL/min Estimated GFR (MDRD) > 60 (>60) Glucose 110 H (74-106) mg/dL Calcium 8.2 L (8.5-10.1) mg/dL Blood Type Gel Antibody Screen Crossmatch Yamil Results Last 24 Hours: Microbiology 03/26/19 13:50 Gram Stain - Final Knee, Left Wound Culture - Preliminary NO GROWTH AFTER 1 DAY Anaerobic Culture - Preliminary NO GROWTH AFTER 1 DAY Med Orders - Current: Current Medications Diphenhydramine HCl (Benadryl) 25 mg PO Q4H PRN PRN Reason: Itching Duloxetine HCl (Cymbalta) 60 mg PO DAILY [facility] Last Admin: 03/28/19 09:29 Dose: 60 mg Ferrous Sulfate (Ferrous Sulfate) 325 mg PO BIDMEALS [facility] Last Admin: 03/28/19 07:30 Dose: 325 mg Hydromorphone HCl (Dilaudid) 0.5 mg IVPUSH Q2H PRN PRN Reason: Pain Hydroxyzine HCl (Vistaril) 100 mg IM Q4H PRN PRN Reason: Pain (severe 7-10) Last Admin: 03/26/19 01:20 Dose: 100 mg Magnesium Hydroxide (Milk Of Magnesia) 30 ml PO BID PRN PRN Reason: Constipation Oxycodone/Acetaminophen (Percocet 325-5 Mg) 2 tab PO Q4H PRN PRN Reason: Pain Last Admin: 03/28/19 09:29 Dose: 2 tab Pantoprazole Sodium (Protonix) 40 mg PO BIDAC [facility] Last Admin: 03/28/19 07:30 Dose: 40 mg Senna/Docusate Sodium (Senna Plus) 1 tab PO BID [facility] Last Admin: 03/28/19 09:29 Dose: 1 tab Sodium Chloride (Saline Flush) 10 ml FLUSH ASDIRECTED PRN PRN Reason: Keep Vein Open Last Admin: 03/24/19 08:37 Dose: 10 ml Tamsulosin HCl (Flomax) 0.4 mg PO DAILY [facility] Last Admin: 03/28/19 09:29 Dose: 0.4 mg Trazodone HCl (Trazodone) 150 mg PO BEDTIME [facility] Last Admin: 03/27/19 20:27 Dose: 150 mg Discontinued Medications Bupivacaine HCl/Epinephrine Bitart (Marcaine 0.5%/Epinephrine 1:200,000) Confirm Administered Dose 50 ml .ROUTE .STK-MED ONE Stop: 03/24/19 12:49 Cyclobenzaprine HCl (Flexeril) 10 mg PO Q8H PRN PRN Reason: Spasms Last Admin: 03/25/19 04:14 Dose: 10 mg Dexamethasone (Dexamethasone) Confirm Administered Dose 4 mg .ROUTE .STK-MED ONE Stop: 03/24/19 13:24 Dexamethasone (Dexamethasone) Confirm Administered Dose 4 mg .ROUTE .STK-MED ONE Stop: 03/26/19 13:07 Enoxaparin Sodium (Lovenox) 100 mg SUBCUT Q12H [facility] Last Admin: 03/25/19 10:16 Dose: 100 mg Enoxaparin Sodium (Lovenox) 90 mg SUBCUT Q12H [facility] Last Admin: 03/26/19 08:25 Dose: 90 mg Fentanyl (Sublimaze) 50 mcg IVPUSH ONETIME ONE Stop: 03/24/19 11:53 Last Admin: 03/24/19 12:11 Dose: 50 mcg Fentanyl (Sublimaze) Confirm Administered Dose 250 mcg .ROUTE .STK-MED ONE Stop: 03/24/19 13:23 Fentanyl (Sublimaze) Confirm Administered Dose 250 mcg .ROUTE .STK-MED ONE Stop: 03/24/19 13:48 Fentanyl (Sublimaze) 50 mcg IVPUSH ONETIME ONE Stop: 03/24/19 14:30 Last Admin: 03/24/19 14:38 Dose: 50 mcg Fentanyl (Sublimaze) 50 mcg IVPUSH ONETIME ONE Stop: 03/24/19 14:49 Last Admin: 03/24/19 14:52 Dose: 50 mcg Fentanyl (Sublimaze) 50 mcg IVPUSH Q1H PRN PRN Reason: Pain (severe 7-10) Last Admin: 03/24/19 23:16 Dose: 50 mcg Fentanyl (Sublimaze) 50 mcg IVPUSH ONETIME ONE Stop: 03/26/19 10:56 Last Admin: 03/26/19 11:08 Dose: 50 mcg Fentanyl (Sublimaze) Confirm Administered Dose 250 mcg .ROUTE .STK-MED ONE Stop: 03/26/19 13:06 Fentanyl (Sublimaze) Confirm Administered Dose 250 mcg .ROUTE .STK-MED ONE Stop: 03/26/19 13:09 Glycopyrrolate (Robinul) Confirm Administered Dose 1 mg .ROUTE .STK-MED ONE Stop: 03/24/19 13:24 Glycopyrrolate (Robinul) Confirm Administered Dose 1 mg .ROUTE .STK-MED ONE Stop: 03/26/19 13:07 Hydromorphone HCl (Dilaudid) 1 mg IM ONETIME ONE Stop: 03/23/19 19:15 Last Admin: 03/23/19 19:20 Dose: 1 mg Hydromorphone HCl (Dilaudid) 2 mg PO Q8H ONE Stop: 03/23/19 19:45 Last Admin: 03/23/19 20:00 Dose: 2 mg Hydromorphone HCl (Dilaudid) 1 mg IVPUSH Q1H ONE Stop: 03/23/19 21:16 Last Admin: 03/23/19 21:21 Dose: 1 mg Hydromorphone HCl (Dilaudid) 1 mg IVPUSH Q1H PRN PRN Reason: Pain Last Admin: 03/28/19 11:40 Dose: 1 mg Hydromorphone HCl (Dilaudid) 4 mg PO Q3H PRN PRN Reason: Pain Last Admin: 03/24/19 21:00 Dose: 4 mg Cefazolin Sodium/Dextrose 2 gm (/ Premix) 50 mls @ 100 mls/hr IV ONETIME ONE Stop: 03/24/19 13:59 Last Admin: 03/24/19 13:35 Dose: 100 mls/hr Acetaminophen 1,000 mg/ Premix 100 mls @ 200 mls/hr IV ONETIME ONE Stop: 03/24/19 15:18 Last Admin: 03/24/19 15:01 Dose: 200 mls/hr Cefazolin Sodium/Dextrose 1 gm (/ Premix) 50 mls @ 100 mls/hr IV Q8H [facility] Stop: 03/25/19 06:29 Last Admin: 03/25/19 06:23 Dose: 100 mls/hr Cefazolin Sodium/Dextrose 1 gm (/ Premix) 50 mls @ 100 mls/hr IV Q8HR [facility] Stop: 03/25/19 22:29 Last Admin: 03/25/19 22:58 Dose: 100 mls/hr Cefazolin Sodium/Dextrose 2 gm (/ Premix) 50 mls @ 100 mls/hr IV ONETIME ONE Stop: 03/26/19 11:29 Last Admin: 03/26/19 11:19 Dose: 100 mls/hr Cefazolin Sodium/Dextrose 1 gm (/ Premix) 50 mls @ 100 mls/hr IV Q8HR [facility] Stop: 03/27/19 14:29 Last Admin: 03/27/19 13:13 Dose: 100 mls/hr Sodium Chloride (Normal Saline) 1,000 mls @ 50 mls/hr IV ASDIRECTED [facility] Last Admin: 03/26/19 15:26 Dose: 50 mls/hr Lidocaine HCl (Xylocaine 2% Jelly) 10 ml MUCMEM ONETIME ONE Stop: 03/24/19 20:39 Last Admin: 03/24/19 21:02 Dose: 10 ml Neostigmine Methylsulfate (Neostigmine) Confirm Administered Dose 5 mg .ROUTE .STK-MED ONE Stop: 03/24/19 13:24 Neostigmine Methylsulfate (Neostigmine) Confirm Administered Dose 5 mg .ROUTE .STK-MED ONE Stop: 03/26/19 13:07 Ondansetron HCl (Zofran) Confirm Administered Dose 4 mg .ROUTE .STK-MED ONE Stop: 03/24/19 13:24 Ondansetron HCl (Zofran) Confirm Administered Dose 4 mg .ROUTE .STK-MED ONE Stop: 03/26/19 13:07 Oxycodone/Acetaminophen (Percocet 325-5 Mg) 1 - 2 tab PO Q6H PRN PRN Reason: Pain Last Admin: 03/25/19 08:14 Dose: 2 tab Propofol (Diprivan 20 Ml) Confirm Administered Dose 200 mg .ROUTE .STK-MED ONE Stop: 03/24/19 13:24 Propofol (Diprivan 20 Ml) Confirm Administered Dose 200 mg .ROUTE .STK-MED ONE Stop: 03/26/19 13:07 Rocuronium [place] (Zemuron) Confirm Administered Dose 50 mg .ROUTE .STK-MED ONE Stop: 03/24/19 13:24 Rocuronium [place] (Zemuron) Confirm Administered Dose 50 mg .ROUTE .STK-MED ONE Stop: 03/26/19 13:07 Rocuronium [place] (Zemuron) Confirm Administered Dose 50 mg .ROUTE .STK-MED ONE Stop: 03/26/19 13:09 Sodium Biphosphate/Sodium Phosphate (Fleet Enema) 133 ml RECTAL ONETIME ONE Stop: 03/26/19 19:42 Last Admin: 03/26/19 20:04 Dose: 133 ml Succinylcholine Chloride (Quelicin) Confirm Administered Dose 200 mg .ROUTE .STK -MED ONE Stop: 03/24/19 13:24 Succinylcholine Chloride (Quelicin) Confirm Administered Dose 200 mg .ROUTE .STK -MED ONE Stop: 03/26/19 13:07 Tizanidine HCl (Zanaflex) 4 mg PO Q6H PRN PRN Reason: Muscle Spasm Last Admin: 03/26/19 09:49 Dose: 4 mg - Exam General: Alert, Oriented, Cooperative, Moderate Distress Lungs: Clear to Auscultation, Normal Respiratory Effort Cardiovascular: Regular Rate, Regular Rhythm, No Murmurs GI/Abdominal Exam: Soft, Non-Tender, No Organomegaly, No Distention Extremities: Leg Pain (Surgical dressing in place left lower leg) - Problem List Review Problem List Initiated/Reviewed/Updated: Yes - My Orders Last 24 Hours: My Active Orders 03/27/19 17:00 Ferrous Sulfate 325 mg PO BIDMEALS 03/28/19 08:59 Transfuse Red Blood Cells [COMM] Urgent 03/28/19 12:31 HYDROmorphone [Dilaudid] 0.5 mg IVPUSH Q2H PRN Convert IV to Saline Lock [OM.PC] Routine 03/29/19 05:00 BASIC METABOLIC PANEL,BMP [CHEM] Timed CBC WITH AUTO DIFF [HEME] Timed - Plan Plan:: ASSESSMENT AND PLAN - Large left lower extremity hematoma with compartment syndrome -evidence of ongoing bleeding with drop in hemoglobin from yesterday -Pain control -Postoperative care per Dr. Jackson Acute blood loss anemia-hemoglobin down to 7.7 despite transfusion of 1 unit of red blood cells yesterday -Transfuse 1 unit of red blood cells -Reassess hemoglobin later today and in a.m. Left leg DVT - repeat ultrasound showed no evidence of deep vein thrombosis Recent left knee arthroplasty - performed at [facility]. -Outpatient follow-up Maintenance issues - - DVT prophylaxis - enoxaparin - GI prophylaxis - not indicated - Nutrition - regular diet Disposition - I would anticipate discharge home after the hospital stay
--- NOTE | 2019-03-28 17:19 | PCM.SURGPN ---
- General Info Date of Service: 03/28/19 Date of Surgery/Procedure: 03/26/19 POD#: 2 Functional Status: Reports: Tolerating Diet - Review of Systems General: Reports: No Symptoms Musculoskeletal: Reports: Leg Pain Neurological: Reports: No Symptoms Psychiatric: Reports: No Symptoms - Patient Data Vitals - Most Recent: Last Vital Signs Temp 38.4 C H 03/28/19 15:26 Pulse 95 03/28/19 14:20 Resp 18 03/28/19 14:20 BP 129/81 03/28/19 14:20 Pulse Ox 96 03/28/19 14:20 Weight - Most Recent: 90.7 kg I&O - Last 24 Hours: Intake & Output 03/28/19 03/28/19 03/28/19 06:59 14:59 22:59 Intake Total 2226 709 Output Total 800 Balance 1426 709 Lab Results Last 24 Hrs: Laboratory Results - last 24 hr 03/27/19 03/27/19 03/28/19 Range/Units 08:30 18:13 04:15 WBC 8.0 (4.5-11.0) K/uL RBC 2.58 L (4.30-5.90) M/uL Hgb 9.1 L 7.7 L (12.0-15.0) g/dL Hct 24.0 L (40.0-54.0) % MCV 93 (80-98) fL MCH 30 (27-31) pg MCHC 32 (32-36) % Plt Count 253 (150-400) K/uL Neut % (Auto) 75 H (36-66) % Lymph % (Auto) 11 L (24-44) % [place] % (Auto) 13 H (2-6) % Eos % (Auto) 1 L (2-4) % Baso % (Auto) 0 (0-1) % Sodium (140-148) mmol/L Potassium (3.6-5.2) mmol/L Chloride (100-108) mmol/L Carbon Dioxide (21-32) mmol/L Anion Gap (5.0-14.0) mmol/L BUN (7-18) mg/dL Creatinine (0.8-1.3) mg/dL Est Cr Clr Drug Dosing mL/min Estimated GFR (MDRD) (>60) Glucose (74-106) mg/dL Calcium (8.5-10.1) mg/dL Blood Type A POSITIVE Gel Antibody Screen Negative Crossmatch See Detail 03/28/19 Range/Units 04:15 WBC (4.5-11.0) K/uL RBC (4.30-5.90) M/uL Hgb (12.0-15.0) g/dL Hct (40.0-54.0) % MCV (80-98) fL MCH (27-31) pg MCHC (32-36) % Plt Count (150-400) K/uL Neut % (Auto) (36-66) % Lymph % (Auto) (24-44) % [place] % (Auto) (2-6) % Eos % (Auto) (2-4) % Baso % (Auto) (0-1) % Sodium 139 L (140-148) mmol/L Potassium 3.8 (3.6-5.2) mmol/L Chloride 105 (100-108) mmol/L Carbon Dioxide 28 (21-32) mmol/L Anion Gap 9.8 (5.0-14.0) mmol/L BUN 14 (7-18) mg/dL Creatinine 0.9 (0.8-1.3) mg/dL Est Cr Clr Drug Dosing 81.01 mL/min Estimated GFR (MDRD) > 60 (>60) Glucose 110 H (74-106) mg/dL Calcium 8.2 L (8.5-10.1) mg/dL Blood Type Gel Antibody Screen Crossmatch Yamil Results Last 24 Hrs: Microbiology 03/26/19 13:50 Gram Stain - Final Knee, Left Wound Culture - Preliminary NO GROWTH AFTER 1 DAY Anaerobic Culture - Preliminary NO GROWTH AFTER 1 DAY Med Orders - Current: Current Medications Diphenhydramine HCl (Benadryl) 25 mg PO Q4H PRN PRN Reason: Itching Duloxetine HCl (Cymbalta) 60 mg PO DAILY [facility] Last Admin: 03/28/19 09:29 Dose: 60 mg Ferrous Sulfate (Ferrous Sulfate) 325 mg PO BIDMEALS [facility] Last Admin: 03/28/19 07:30 Dose: 325 mg Hydromorphone HCl (Dilaudid) 0.5 mg IVPUSH Q2H PRN PRN Reason: PAIN Magnesium Hydroxide (Milk Of Magnesia) 30 ml PO BID PRN PRN Reason: Constipation Oxycodone/Acetaminophen (Percocet 325-5 Mg) 2 tab PO Q4H PRN PRN Reason: Pain Last Admin: 03/28/19 14:02 Dose: 2 tab Pantoprazole Sodium (Protonix) 40 mg PO BIDAC [facility] Last Admin: 03/28/19 07:30 Dose: 40 mg Senna/Docusate Sodium (Senna Plus) 1 tab PO BID [facility] Last Admin: 03/28/19 09:29 Dose: 1 tab Sodium Chloride (Saline Flush) 10 ml FLUSH ASDIRECTED PRN PRN Reason: Keep Vein Open Last Admin: 03/24/19 08:37 Dose: 10 ml Tamsulosin HCl (Flomax) 0.4 mg PO DAILY [facility] Last Admin: 03/28/19 09:29 Dose: 0.4 mg Trazodone HCl (Trazodone) 150 mg PO BEDTIME [facility] Last Admin: 03/27/19 20:27 Dose: 150 mg Discontinued Medications Bupivacaine HCl/Epinephrine Bitart (Marcaine 0.5%/Epinephrine 1:200,000) Confirm Administered Dose 50 ml .ROUTE .STK-MED ONE Stop: 03/24/19 12:49 Cyclobenzaprine HCl (Flexeril) 10 mg PO Q8H PRN PRN Reason: Spasms Last Admin: 03/25/19 04:14 Dose: 10 mg Dexamethasone (Dexamethasone) Confirm Administered Dose 4 mg .ROUTE .STK-MED ONE Stop: 03/24/19 13:24 Dexamethasone (Dexamethasone) Confirm Administered Dose 4 mg .ROUTE .STK-MED ONE Stop: 03/26/19 13:07 Enoxaparin Sodium (Lovenox) 100 mg SUBCUT Q12H [facility] Last Admin: 03/25/19 10:16 Dose: 100 mg Enoxaparin Sodium (Lovenox) 90 mg SUBCUT Q12H [facility] Last Admin: 03/26/19 08:25 Dose: 90 mg Fentanyl (Sublimaze) 50 mcg IVPUSH ONETIME ONE Stop: 03/24/19 11:53 Last Admin: 03/24/19 12:11 Dose: 50 mcg Fentanyl (Sublimaze) Confirm Administered Dose 250 mcg .ROUTE .STK-MED ONE Stop: 03/24/19 13:23 Fentanyl (Sublimaze) Confirm Administered Dose 250 mcg .ROUTE .STK-MED ONE Stop: 03/24/19 13:48 Fentanyl (Sublimaze) 50 mcg IVPUSH ONETIME ONE Stop: 03/24/19 14:30 Last Admin: 03/24/19 14:38 Dose: 50 mcg Fentanyl (Sublimaze) 50 mcg IVPUSH ONETIME ONE Stop: 03/24/19 14:49 Last Admin: 03/24/19 14:52 Dose: 50 mcg Fentanyl (Sublimaze) 50 mcg IVPUSH Q1H PRN PRN Reason: Pain (severe 7-10) Last Admin: 03/24/19 23:16 Dose: 50 mcg Fentanyl (Sublimaze) 50 mcg IVPUSH ONETIME ONE Stop: 03/26/19 10:56 Last Admin: 03/26/19 11:08 Dose: 50 mcg Fentanyl (Sublimaze) Confirm Administered Dose 250 mcg .ROUTE .STK-MED ONE Stop: 03/26/19 13:06 Fentanyl (Sublimaze) Confirm Administered Dose 250 mcg .ROUTE .STK-MED ONE Stop: 03/26/19 13:09 Glycopyrrolate (Robinul) Confirm Administered Dose 1 mg .ROUTE .STK-MED ONE Stop: 03/24/19 13:24 Glycopyrrolate (Robinul) Confirm Administered Dose 1 mg .ROUTE .STK-MED ONE Stop: 03/26/19 13:07 Hydromorphone HCl (Dilaudid) 1 mg IM ONETIME ONE Stop: 03/23/19 19:15 Last Admin: 03/23/19 19:20 Dose: 1 mg Hydromorphone HCl (Dilaudid) 2 mg PO Q8H ONE Stop: 03/23/19 19:45 Last Admin: 03/23/19 20:00 Dose: 2 mg Hydromorphone HCl (Dilaudid) 1 mg IVPUSH Q1H ONE Stop: 03/23/19 21:16 Last Admin: 03/23/19 21:21 Dose: 1 mg Hydromorphone HCl (Dilaudid) 1 mg IVPUSH Q1H PRN PRN Reason: Pain Last Admin: 03/28/19 11:40 Dose: 1 mg Hydromorphone HCl (Dilaudid) 4 mg PO Q3H PRN PRN Reason: Pain Last Admin: 03/24/19 21:00 Dose: 4 mg Hydroxyzine HCl (Vistaril) 100 mg IM Q4H PRN PRN Reason: Pain (severe 7-10) Last Admin: 03/26/19 01:20 Dose: 100 mg Cefazolin Sodium/Dextrose 2 gm (/ Premix) 50 mls @ 100 mls/hr IV ONETIME ONE Stop: 03/24/19 13:59 Last Admin: 03/24/19 13:35 Dose: 100 mls/hr Acetaminophen 1,000 mg/ Premix 100 mls @ 200 mls/hr IV ONETIME ONE Stop: 03/24/19 15:18 Last Admin: 03/24/19 15:01 Dose: 200 mls/hr Cefazolin Sodium/Dextrose 1 gm (/ Premix) 50 mls @ 100 mls/hr IV Q8H [facility] Stop: 03/25/19 06:29 Last Admin: 03/25/19 06:23 Dose: 100 mls/hr Cefazolin Sodium/Dextrose 1 gm (/ Premix) 50 mls @ 100 mls/hr IV Q8HR [facility] Stop: 03/25/19 22:29 Last Admin: 03/25/19 22:58 Dose: 100 mls/hr Cefazolin Sodium/Dextrose 2 gm (/ Premix) 50 mls @ 100 mls/hr IV ONETIME ONE Stop: 03/26/19 11:29 Last Admin: 03/26/19 11:19 Dose: 100 mls/hr Cefazolin Sodium/Dextrose 1 gm (/ Premix) 50 mls @ 100 mls/hr IV Q8HR [facility] Stop: 03/27/19 14:29 Last Admin: 03/27/19 13:13 Dose: 100 mls/hr Sodium Chloride (Normal Saline) 1,000 mls @ 50 mls/hr IV ASDIRECTED [facility] Last Admin: 03/26/19 15:26 Dose: 50 mls/hr Lidocaine HCl (Xylocaine 2% Jelly) 10 ml MUCMEM ONETIME ONE Stop: 03/24/19 20:39 Last Admin: 03/24/19 21:02 Dose: 10 ml Neostigmine Methylsulfate (Neostigmine) Confirm Administered Dose 5 mg .ROUTE .STK-MED ONE Stop: 03/24/19 13:24 Neostigmine Methylsulfate (Neostigmine) Confirm Administered Dose 5 mg .ROUTE .STK-MED ONE Stop: 03/26/19 13:07 Ondansetron HCl (Zofran) Confirm Administered Dose 4 mg .ROUTE .STK-MED ONE Stop: 03/24/19 13:24 Ondansetron HCl (Zofran) Confirm Administered Dose 4 mg .ROUTE .STK-MED ONE Stop: 03/26/19 13:07 Oxycodone/Acetaminophen (Percocet 325-5 Mg) 1 - 2 tab PO Q6H PRN PRN Reason: Pain Last Admin: 03/25/19 08:14 Dose: 2 tab Propofol (Diprivan 20 Ml) Confirm Administered Dose 200 mg .ROUTE .STK-MED ONE Stop: 03/24/19 13:24 Propofol (Diprivan 20 Ml) Confirm Administered Dose 200 mg .ROUTE .STK-MED ONE Stop: 03/26/19 13:07 Rocuronium [place] (Zemuron) Confirm Administered Dose 50 mg .ROUTE .STK-MED ONE Stop: 03/24/19 13:24 Rocuronium [place] (Zemuron) Confirm Administered Dose 50 mg .ROUTE .STK-MED ONE Stop: 03/26/19 13:07 Rocuronium [place] (Zemuron) Confirm Administered Dose 50 mg .ROUTE .STK-MED ONE Stop: 03/26/19 13:09 Sodium Biphosphate/Sodium Phosphate (Fleet Enema) 133 ml RECTAL ONETIME ONE Stop: 03/26/19 19:42 Last Admin: 03/26/19 20:04 Dose: 133 ml Succinylcholine Chloride (Quelicin) Confirm Administered Dose 200 mg .ROUTE .STK -MED ONE Stop: 03/24/19 13:24 Succinylcholine Chloride (Quelicin) Confirm Administered Dose 200 mg .ROUTE .STK -MED ONE Stop: 03/26/19 13:07 Tizanidine HCl (Zanaflex) 4 mg PO Q6H PRN PRN Reason: Muscle Spasm Last Admin: 03/26/19 09:49 Dose: 4 mg - Exam General: Alert, Oriented Extremities: Other (left lower leg swollen and tight, although not as severe as Wednesday, able to wiggle toes, swollen and tender popliteal space) - Problem List & Annotations (1) DVT (deep venous thrombosis) SNOMED Code(s): 469480505 Code(s): I82.409 - ACUTE EMBOLISM AND THOMBOS UNSP DEEP VN UNSP LOWER EXTREMITY Status: Acute Current Visit: Yes Qualifiers: DVT location: lower extremity Affected thrombotic vein of extremity: unspecified lower extremity distal vein (2) Severe pain SNOMED Code(s): 65470688 Code(s): R52 - PAIN, UNSPECIFIED Status: Acute Current Visit: Yes (3) Nontraumatic compartment syndrome of left lower extremity SNOMED Code(s): 276624127 Code(s): M79.A22 - NONTRAUMATIC COMPARTMENT SYNDROME OF LEFT LOWER EXTREMITY Status: Acute Current Visit: Yes Annotation/Comment:: secondary to DVT (4) Hematoma of lower leg SNOMED Code(s): 239500549 Code(s): S80.10XA - CONTUSION OF UNSPECIFIED LOWER LEG, INITIAL ENCOUNTER Status: Acute Current Visit: Yes (5) Spontaneous hematoma of lower leg SNOMED Code(s): 636649522 Code(s): R23.3 - SPONTANEOUS ECCHYMOSES Status: Acute Current Visit: Yes (6) Anemia, posthemorrhagic, acute SNOMED Code(s): 961097262 Code(s): D62 - ACUTE POSTHEMORRHAGIC ANEMIA Status: Acute Current Visit: Yes - Problem List Review Problem List Initiated/Reviewed/Updated: Yes - My Orders Last 24 Hours: Active Orders 24 hr Category Date Time Status Remove Byrd Catheter [Urinary Catheter Removal] [RC] Care 03/28/19 12:41 Active Per Unit Routine BASIC METABOLIC PANEL,BMP [CHEM] Timed Lab 03/29/19 05:00 Ordered CBC WITH AUTO DIFF [HEME] Timed Lab 03/29/19 05:00 Ordered CULTURE BLOOD [BC] Urgent Lab 03/28/19 14:30 Received CULTURE BLOOD [BC] Urgent Lab 03/28/19 14:40 Received HGB [HEMOGLOBIN] [HEME] Stat Lab 03/28/19 17:00 Ordered INR,PT,PROTHROMBIN TIME [COAG] Timed Lab 03/29/19 05:00 Ordered PTT,PARTIAL THROMBOPLSTIN TIME [COAG] Timed Lab 03/29/19 05:00 Ordered Ferrous Sulfate Med 03/27/19 17:00 Active 325 mg PO BIDMEALS HYDROmorphone [Dilaudid] Med 03/28/19 12:45 Active 0.5 mg IVPUSH Q2H PRN Blood Culture x2 Reflex Set [OM.PC] Urgent Ot 03/28/19 14:26 Ordered Convert IV to Saline Lock [OM.PC] Routine Ot 03/28/19 12:31 Ordered Transfuse Red Blood Cells [COMM] Urgent Ot 03/28/19 08:59 Ordered Medication Orders Diphenhydramine HCl (Benadryl) 25 mg PO Q4H PRN PRN Reason: Itching Duloxetine HCl (Cymbalta) 60 mg PO DAILY [facility] Last Admin: 03/28/19 09:29 Dose: 60 mg Admin: 03/27/19 09:23 Dose: 60 mg Admin: 03/26/19 08:24 Dose: 60 mg Admin: 03/25/19 08:10 Dose: 60 mg Admin: 03/24/19 11:49 Dose: Not Given Ferrous Sulfate (Ferrous Sulfate) 325 mg PO BIDMEALS [facility] Last Admin: 03/28/19 07:30 Dose: 325 mg Admin: 03/27/19 17:56 Dose: 325 mg Hydromorphone HCl (Dilaudid) 0.5 mg IVPUSH Q2H PRN PRN Reason: PAIN Magnesium Hydroxide (Milk Of Magnesia) 30 ml PO BID PRN PRN Reason: Constipation Oxycodone/Acetaminophen (Percocet 325-5 Mg) 2 tab PO Q4H PRN PRN Reason: Pain Last Admin: 03/28/19 14:02 Dose: 2 tab Admin: 03/28/19 09:29 Dose: 2 tab Admin: 03/28/19 05:11 Dose: 2 tab Admin: 03/28/19 00:37 Dose: 2 tab Admin: 03/27/19 19:27 Dose: 2 tab Admin: 03/27/19 15:29 Dose: 2 tab Admin: 03/27/19 11:37 Dose: 2 tab Admin: 03/27/19 07:35 Dose: 2 tab Admin: 03/27/19 03:01 Dose: 2 tab Admin: 03/26/19 20:04 Dose: 2 tab Admin: 03/26/19 08:22 Dose: 2 tab Admin: 03/26/19 01:48 Dose: 2 tab Admin: 03/25/19 21:58 Dose: 2 tab Admin: 03/25/19 18:00 Dose: 2 tab Admin: 03/25/19 13:16 Dose: 2 tab Pantoprazole Sodium (Protonix) 40 mg PO BIDAC [facility] Last Admin: 03/28/19 07:30 Dose: 40 mg Admin: 03/27/19 15:29 Dose: 40 mg Admin: 03/27/19 09:23 Dose: 40 mg Admin: 03/26/19 16:49 Dose: 40 mg Admin: 03/26/19 08:23 Dose: 40 mg Admin: 03/25/19 18:00 Dose: 40 mg Admin: 03/25/19 08:10 Dose: 40 mg Admin: 03/24/19 17:08 Dose: 40 mg Admin: 03/24/19 07:28 Dose: 40 mg Senna/Docusate Sodium (Senna Plus) 1 tab PO BID [facility] Last Admin: 03/28/19 09:29 Dose: 1 tab Admin: 03/27/19 20:27 Dose: 1 tab Admin: 03/27/19 09:23 Dose: 1 tab Admin: 03/26/19 20:04 Dose: 1 tab Admin: 03/26/19 08:24 Dose: 1 tab Admin: 03/25/19 21:58 Dose: 1 tab Admin: 03/25/19 11:40 Dose: 1 tab Sodium Chloride (Saline Flush) 10 ml FLUSH ASDIRECTED PRN PRN Reason: Keep Vein Open Last Admin: 03/24/19 08:37 Dose: 10 ml Admin: 03/24/19 00:43 Dose: 10 ml Admin: 03/24/19 00:00 Dose: 10 ml Tamsulosin HCl (Flomax) 0.4 mg PO DAILY [facility] Last Admin: 03/28/19 09:29 Dose: 0.4 mg Admin: 03/27/19 09:23 Dose: 0.4 mg Admin: 03/26/19 08:24 Dose: 0.4 mg Admin: 03/25/19 08:10 Dose: 0.4 mg Admin: 03/24/19 11:49 Dose: Not Given Trazodone HCl (Trazodone) 150 mg PO BEDTIME [facility] Last Admin: 03/27/19 20:27 Dose: 150 mg Admin: 03/26/19 20:04 Dose: 150 mg Admin: 03/25/19 21:58 Dose: 150 mg Admin: 03/24/19 21:01 Dose: 150 mg Admin: 03/24/19 01:03 Dose: 150 mg - Assessment Assessment (Free Text/Narrative):: Pain and swelling getting worse again, do not suspect compartment syndrome as fasciotomy has been done but hematoma reaccumulating. Wound vac not draining the hematoma directly. Must have some arterial bleeding in popliteal region or just distal. - Plan Plan (Free Text/Narrative):: Discussed options with patient. Do not recommend surgical exploration. If not improving over next day or so would consider transferring to Interventional Radiology for arteriogram and embolization if possible. Will reassess in AM. Continue wound vac for now.
[2019-03-28] MEDS: traZODone 50 MG Tab PO SCH (21:21)
[2019-03-29] MEDS: Acetaminophen/oxyCODONE 325-5 MG Tab PO PRN ×5 (05:32→21:19)
[2019-03-29] MEDS: Tamsulosin 0.4 MG Cap.ER PO SCH (09:14)
[2019-03-29] MEDS: Pantoprazole 40 MG Tab.CR PO SCH ×2 (09:14→16:25)
[2019-03-29] MEDS: Ferrous Sulfate 325 MG Tab PO SCH ×2 (09:14→16:21)
[2019-03-29] MEDS: DULoxetine 30 MG Cap PO SCH (09:15)
[2019-03-29] MEDS: HYDROmorphone 0.5 MG/0.5 ML Syringe IVPUSH PRN ×2 (10:25→19:45)
--- NOTE | 2019-03-29 16:12 | PCM.PN ---
- General Info Date of Service: 03/29/19 Subjective Update: Mr. Whitfield has been stable since yesterday with no further evidence of bleeding. Continues to experience significant pain in his leg especially when the leg is dependent. Functional Status: Reports: Tolerating Diet, Urinating - Review of Systems General: Reports: Weakness, Fatigue Pulmonary: Reports: No Symptoms Cardiovascular: Reports: No Symptoms Gastrointestinal: Reports: No Symptoms - Patient Data Vitals - Most Recent: Last Vital Signs Temp 99.8 F 03/29/19 15:00 Pulse 97 03/29/19 15:00 Resp 18 03/29/19 15:00 BP 125/71 03/29/19 15:00 Pulse Ox 95 03/29/19 15:00 Weight - Most Recent: 199 lb 15.348 oz I&O - Last 24 Hours: Intake & Output 03/29/19 03/29/19 03/29/19 06:59 14:59 22:59 Intake Total 700 Output Total 1200 1175 Balance -1200 -475 Lab Results Last 24 Hours: Laboratory Results - last 24 hr 03/28/19 03/29/19 03/29/19 Range/Units 17:00 04:13 04:13 WBC 8.5 (4.5-11.0) K/uL RBC 3.05 L (4.30-5.90) M/uL Hgb 9.2 L 9.5 L (12.0-15.0) g/dL Hct 28.4 L (40.0-54.0) % MCV 93 (80-98) fL MCH 31 (27-31) pg MCHC 34 (32-36) % Plt Count 323 (150-400) K/uL Neut % (Auto) 76 H (36-66) % Lymph % (Auto) 10 L (24-44) % Gilchrist % (Auto) 12 H (2-6) % Eos % (Auto) 2 (2-4) % Baso % (Auto) 0 (0-1) % PT (9.5-12.0) sec INR (0.80-1.20) APTT (27.0-36.0) sec Sodium 140 (140-148) mmol/L Potassium 4.1 (3.6-5.2) mmol/L Chloride 104 (100-108) mmol/L Carbon Dioxide 30 (21-32) mmol/L Anion Gap 6.3 (5.0-14.0) mmol/L BUN 11 (7-18) mg/dL Creatinine 1.0 (0.8-1.3) mg/dL Est Cr Clr Drug Dosing 72.91 mL/min Estimated GFR (MDRD) > 60 (>60) Glucose 96 (74-106) mg/dL Calcium 8.8 (8.5-10.1) mg/dL 03/29/19 Range/Units 04:13 WBC (4.5-11.0) K/uL RBC (4.30-5.90) M/uL Hgb (12.0-15.0) g/dL Hct (40.0-54.0) % MCV (80-98) fL MCH (27-31) pg MCHC (32-36) % Plt Count (150-400) K/uL Neut % (Auto) (36-66) % Lymph % (Auto) (24-44) % Gilchrist % (Auto) (2-6) % Eos % (Auto) (2-4) % Baso % (Auto) (0-1) % PT 10.7 (9.5-12.0) sec INR 0.99 (0.80-1.20) APTT 31.0 (27.0-36.0) sec Sodium (140-148) mmol/L Potassium (3.6-5.2) mmol/L Chloride (100-108) mmol/L Carbon Dioxide (21-32) mmol/L Anion Gap (5.0-14.0) mmol/L BUN (7-18) mg/dL Creatinine (0.8-1.3) mg/dL Est Cr Clr Drug Dosing mL/min Estimated GFR (MDRD) (>60) Glucose (74-106) mg/dL Calcium (8.5-10.1) mg/dL Yamil Results Last 24 Hours: Microbiology 03/28/19 14:40 Aerobic Blood Culture - Preliminary Blood - Arm, Right NO GROWTH AFTER 1 DAY Anaerobic Blood Culture - Preliminary NO GROWTH AFTER 1 DAY 03/28/19 14:30 Aerobic Blood Culture - Preliminary Blood - Arm, Right NO GROWTH AFTER 1 DAY Anaerobic Blood Culture - Preliminary NO GROWTH AFTER 1 DAY 03/26/19 13:50 Gram Stain - Final Knee, Left Wound Culture - Preliminary NO GROWTH AFTER 2 DAYS Anaerobic Culture - Preliminary NO GROWTH AFTER 2 DAYS Med Orders - Current: Current Medications Diphenhydramine HCl (Benadryl) 25 mg PO Q4H PRN PRN Reason: Itching Duloxetine HCl (Cymbalta) 60 mg PO DAILY COUNT INCLUDES THE [facility] Last Admin: 03/29/19 09:15 Dose: 60 mg Ferrous Sulfate (Ferrous Sulfate) 325 mg PO BIDMEALS COUNT INCLUDES THE [facility] Last Admin: 03/29/19 09:14 Dose: Not Given Hydromorphone HCl (Dilaudid) 0.5 mg IVPUSH Q2H PRN PRN Reason: PAIN Last Admin: 03/29/19 10:25 Dose: 0.5 mg Magnesium Hydroxide (Milk Of Magnesia) 30 ml PO BID PRN PRN Reason: Constipation Oxycodone/Acetaminophen (Percocet 325-5 Mg) 2 tab PO Q4H PRN PRN Reason: Pain Last Admin: 03/29/19 12:36 Dose: 2 tab Pantoprazole Sodium (Protonix) 40 mg PO BIDAC COUNT INCLUDES THE [facility] Last Admin: 03/29/19 09:14 Dose: 40 mg Senna/Docusate Sodium (Senna Plus) 1 tab PO BID COUNT INCLUDES THE [facility] Last Admin: 03/29/19 09:15 Dose: 1 tab Sodium Chloride (Saline Flush) 10 ml FLUSH ASDIRECTED PRN PRN Reason: Keep Vein Open Last Admin: 03/24/19 08:37 Dose: 10 ml Tamsulosin HCl (Flomax) 0.4 mg PO DAILY COUNT INCLUDES THE [facility] Last Admin: 03/29/19 09:14 Dose: 0.4 mg Trazodone HCl (Trazodone) 150 mg PO BEDTIME COUNT INCLUDES THE [facility] Last Admin: 03/28/19 21:21 Dose: 150 mg Discontinued Medications Bupivacaine HCl/Epinephrine Bitart (Marcaine 0.5%/Epinephrine 1:200,000) Confirm Administered Dose 50 ml .ROUTE .STK-MED ONE Stop: 03/24/19 12:49 Cyclobenzaprine HCl (Flexeril) 10 mg PO Q8H PRN PRN Reason: Spasms Last Admin: 03/25/19 04:14 Dose: 10 mg Dexamethasone (Dexamethasone) Confirm Administered Dose 4 mg .ROUTE .STK-MED ONE Stop: 03/24/19 13:24 Dexamethasone (Dexamethasone) Confirm Administered Dose 4 mg .ROUTE .STK-MED ONE Stop: 03/26/19 13:07 Enoxaparin Sodium (Lovenox) 100 mg SUBCUT Q12H COUNT INCLUDES THE [facility] Last Admin: 03/25/19 10:16 Dose: 100 mg Enoxaparin Sodium (Lovenox) 90 mg SUBCUT Q12H COUNT INCLUDES THE [facility] Last Admin: 03/26/19 08:25 Dose: 90 mg Fentanyl (Sublimaze) 50 mcg IVPUSH ONETIME ONE Stop: 03/24/19 11:53 Last Admin: 03/24/19 12:11 Dose: 50 mcg Fentanyl (Sublimaze) Confirm Administered Dose 250 mcg .ROUTE .STK-MED ONE Stop: 03/24/19 13:23 Fentanyl (Sublimaze) Confirm Administered Dose 250 mcg .ROUTE .STK-MED ONE Stop: 03/24/19 13:48 Fentanyl (Sublimaze) 50 mcg IVPUSH ONETIME ONE Stop: 03/24/19 14:30 Last Admin: 03/24/19 14:38 Dose: 50 mcg Fentanyl (Sublimaze) 50 mcg IVPUSH ONETIME ONE Stop: 03/24/19 14:49 Last Admin: 03/24/19 14:52 Dose: 50 mcg Fentanyl (Sublimaze) 50 mcg IVPUSH Q1H PRN PRN Reason: Pain (severe 7-10) Last Admin: 03/24/19 23:16 Dose: 50 mcg Fentanyl (Sublimaze) 50 mcg IVPUSH ONETIME ONE Stop: 03/26/19 10:56 Last Admin: 03/26/19 11:08 Dose: 50 mcg Fentanyl (Sublimaze) Confirm Administered Dose 250 mcg .ROUTE .STK-MED ONE Stop: 03/26/19 13:06 Fentanyl (Sublimaze) Confirm Administered Dose 250 mcg .ROUTE .STK-MED ONE Stop: 03/26/19 13:09 Glycopyrrolate (Robinul) Confirm Administered Dose 1 mg .ROUTE .STK-MED ONE Stop: 03/24/19 13:24 Glycopyrrolate (Robinul) Confirm Administered Dose 1 mg .ROUTE .STK-MED ONE Stop: 03/26/19 13:07 Hydromorphone HCl (Dilaudid) 1 mg IM ONETIME ONE Stop: 03/23/19 19:15 Last Admin: 03/23/19 19:20 Dose: 1 mg Hydromorphone HCl (Dilaudid) 2 mg PO Q8H ONE Stop: 03/23/19 19:45 Last Admin: 03/23/19 20:00 Dose: 2 mg Hydromorphone HCl (Dilaudid) 1 mg IVPUSH Q1H ONE Stop: 03/23/19 21:16 Last Admin: 03/23/19 21:21 Dose: 1 mg Hydromorphone HCl (Dilaudid) 1 mg IVPUSH Q1H PRN PRN Reason: Pain Last Admin: 03/28/19 11:40 Dose: 1 mg Hydromorphone HCl (Dilaudid) 4 mg PO Q3H PRN PRN Reason: Pain Last Admin: 03/24/19 21:00 Dose: 4 mg Hydroxyzine HCl (Vistaril) 100 mg IM Q4H PRN PRN Reason: Pain (severe 7-10) Last Admin: 03/26/19 01:20 Dose: 100 mg Cefazolin Sodium/Dextrose 2 gm (/ Premix) 50 mls @ 100 mls/hr IV ONETIME ONE Stop: 03/24/19 13:59 Last Admin: 03/24/19 13:35 Dose: 100 mls/hr Acetaminophen 1,000 mg/ Premix 100 mls @ 200 mls/hr IV ONETIME ONE Stop: 03/24/19 15:18 Last Admin: 03/24/19 15:01 Dose: 200 mls/hr Cefazolin Sodium/Dextrose 1 gm (/ Premix) 50 mls @ 100 mls/hr IV Q8H COUNT INCLUDES THE [facility] Stop: 03/25/19 06:29 Last Admin: 03/25/19 06:23 Dose: 100 mls/hr Cefazolin Sodium/Dextrose 1 gm (/ Premix) 50 mls @ 100 mls/hr IV Q8HR COUNT INCLUDES THE [facility] Stop: 03/25/19 22:29 Last Admin: 03/25/19 22:58 Dose: 100 mls/hr Cefazolin Sodium/Dextrose 2 gm (/ Premix) 50 mls @ 100 mls/hr IV ONETIME ONE Stop: 03/26/19 11:29 Last Admin: 03/26/19 11:19 Dose: 100 mls/hr Cefazolin Sodium/Dextrose 1 gm (/ Premix) 50 mls @ 100 mls/hr IV Q8HR COUNT INCLUDES THE [facility] Stop: 03/27/19 14:29 Last Admin: 03/27/19 13:13 Dose: 100 mls/hr Sodium Chloride (Normal Saline) 1,000 mls @ 50 mls/hr IV ASDIRECTED COUNT INCLUDES THE [facility] Last Admin: 03/26/19 15:26 Dose: 50 mls/hr Lidocaine HCl (Xylocaine 2% Jelly) 10 ml MUCMEM ONETIME ONE Stop: 03/24/19 20:39 Last Admin: 03/24/19 21:02 Dose: 10 ml Neostigmine Methylsulfate (Neostigmine) Confirm Administered Dose 5 mg .ROUTE .STK-MED ONE Stop: 03/24/19 13:24 Neostigmine Methylsulfate (Neostigmine) Confirm Administered Dose 5 mg .ROUTE .STK-MED ONE Stop: 03/26/19 13:07 Ondansetron HCl (Zofran) Confirm Administered Dose 4 mg .ROUTE .STK-MED ONE Stop: 03/24/19 13:24 Ondansetron HCl (Zofran) Confirm Administered Dose 4 mg .ROUTE .STK-MED ONE Stop: 03/26/19 13:07 Oxycodone/Acetaminophen (Percocet 325-5 Mg) 1 - 2 tab PO Q6H PRN PRN Reason: Pain Last Admin: 03/25/19 08:14 Dose: 2 tab Propofol (Diprivan 20 Ml) Confirm Administered Dose 200 mg .ROUTE .STK-MED ONE Stop: 03/24/19 13:24 Propofol (Diprivan 20 Ml) Confirm Administered Dose 200 mg .ROUTE .STK-MED ONE Stop: 03/26/19 13:07 Rocuronium [place] (Zemuron) Confirm Administered Dose 50 mg .ROUTE .STK-MED ONE Stop: 03/24/19 13:24 Rocuronium [place] (Zemuron) Confirm Administered Dose 50 mg .ROUTE .STK-MED ONE Stop: 03/26/19 13:07 Rocuronium [place] (Zemuron) Confirm Administered Dose 50 mg .ROUTE .STK-MED ONE Stop: 03/26/19 13:09 Sodium Biphosphate/Sodium Phosphate (Fleet Enema) 133 ml RECTAL ONETIME ONE Stop: 03/26/19 19:42 Last Admin: 03/26/19 20:04 Dose: 133 ml Succinylcholine Chloride (Quelicin) Confirm Administered Dose 200 mg .ROUTE .STK -MED ONE Stop: 03/24/19 13:24 Succinylcholine Chloride (Quelicin) Confirm Administered Dose 200 mg .ROUTE .STK -MED ONE Stop: 03/26/19 13:07 Tizanidine HCl (Zanaflex) 4 mg PO Q6H PRN PRN Reason: Muscle Spasm Last Admin: 03/26/19 09:49 Dose: 4 mg - Exam General: Alert, Oriented, Cooperative, Moderate Distress Lungs: Clear to Auscultation, Normal Respiratory Effort Cardiovascular: Regular Rate, Regular Rhythm, No Murmurs GI/Abdominal Exam: Soft, Non-Tender, No Organomegaly, No Distention Extremities: Leg Pain (Surgical dressing in place left lower leg) - Problem List Review Problem List Initiated/Reviewed/Updated: Yes - My Orders Last 24 Hours: My Active Orders 03/29/19 17:00 HGB [HEMOGLOBIN] [HEME] Stat 03/30/19 05:11 HGB [HEMOGLOBIN] [HEME] AM - Plan Plan:: ASSESSMENT AND PLAN - Large left lower extremity hematoma with compartment syndrome -recurrent hematoma with increase in pain -Pain control -Postoperative care per Dr. Jackson Acute blood loss anemia-hemoglobin stable following transfusion yesterday -Reassess hemoglobin later today and in a.m. Recent left knee arthroplasty - performed at [facility]. -Outpatient follow-up Maintenance issues - - DVT prophylaxis - enoxaparin - GI prophylaxis - not indicated - Nutrition - regular diet Disposition - I would anticipate discharge home after the hospital stay
[2019-03-29] MEDS: traZODone 50 MG Tab PO SCH (21:19)
[2019-03-30] MEDS: Acetaminophen/oxyCODONE 325-5 MG Tab PO PRN ×5 (07:29→21:25)
[2019-03-30] MEDS: Pantoprazole 40 MG Tab.CR PO SCH ×2 (07:29→16:39)
[2019-03-30] MEDS: Ferrous Sulfate 325 MG Tab PO SCH ×2 (08:31→16:39)
[2019-03-30] MEDS: Tamsulosin 0.4 MG Cap.ER PO SCH (08:31)
[2019-03-30] MEDS: DULoxetine 30 MG Cap PO SCH (08:31)
[2019-03-30] MEDS: HYDROmorphone 0.5 MG/0.5 ML Syringe IVPUSH PRN ×3 (09:03→20:49)
--- NOTE | 2019-03-30 10:41 | PCM.PN ---
- General Info Date of Service: 03/30/19 Subjective Update: Mr. Whitfield has been fairly stable since yesterday, continues to experience increased pain and like when the leg is dependent. No further evidence of active bleeding, hemoglobin stable over the past 48 hours. Functional Status: Reports: Tolerating Diet, Ambulating, Urinating - Review of Systems General: Reports: Fever, Weakness. Denies: Chills Pulmonary: Reports: No Symptoms Cardiovascular: Reports: No Symptoms Gastrointestinal: Reports: No Symptoms Musculoskeletal: Reports: Leg Pain - Patient Data Vitals - Most Recent: Last Vital Signs Temp 100.0 F 03/30/19 07:28 Pulse 94 03/30/19 07:28 Resp 18 03/30/19 07:28 BP 133/86 03/30/19 07:28 Pulse Ox 97 03/30/19 08:00 Weight - Most Recent: 199 lb 15.348 oz I&O - Last 24 Hours: Intake & Output 03/29/19 03/30/19 03/30/19 22:59 06:59 14:59 Intake Total 1440 480 Output Total 400 1200 400 Balance 1040 -1200 80 Lab Results Last 24 Hours: Laboratory Results - last 24 hr 03/29/19 03/30/19 Range/Units 16:50 04:00 Hgb 9.6 L 9.4 L (12.0-15.0) g/dL Yamil Results Last 24 Hours: Microbiology 03/26/19 13:50 Gram Stain - Final Knee, Left Wound Culture - Final NO GROWTH AFTER 3 DAYS Anaerobic Culture - Final NO GROWTH AFTER 3 DAYS 03/28/19 14:40 Aerobic Blood Culture - Preliminary Blood - Arm, Right NO GROWTH AFTER 1 DAY Anaerobic Blood Culture - Preliminary NO GROWTH AFTER 1 DAY 03/28/19 14:30 Aerobic Blood Culture - Preliminary Blood - Arm, Right NO GROWTH AFTER 1 DAY Anaerobic Blood Culture - Preliminary NO GROWTH AFTER 1 DAY Med Orders - Current: Current Medications Diphenhydramine HCl (Benadryl) 25 mg PO Q4H PRN PRN Reason: Itching Duloxetine HCl (Cymbalta) 60 mg PO DAILY [facility] Last Admin: 03/30/19 08:31 Dose: 60 mg Ferrous Sulfate (Ferrous Sulfate) 325 mg PO BIDMEALS [facility] Last Admin: 03/30/19 08:31 Dose: Not Given Hydromorphone HCl (Dilaudid) 0.5 mg IVPUSH Q2H PRN PRN Reason: PAIN Last Admin: 03/30/19 09:03 Dose: 0.5 mg Magnesium Hydroxide (Milk Of Magnesia) 30 ml PO BID PRN PRN Reason: Constipation Oxycodone/Acetaminophen (Percocet 325-5 Mg) 2 tab PO Q4H PRN PRN Reason: Pain Last Admin: 03/30/19 09:05 Dose: 1 tab Pantoprazole Sodium (Protonix) 40 mg PO BIDAC [facility] Last Admin: 03/30/19 07:29 Dose: 40 mg Senna/Docusate Sodium (Senna Plus) 1 tab PO BID [facility] Last Admin: 03/30/19 08:31 Dose: 1 tab Sodium Chloride (Saline Flush) 10 ml FLUSH ASDIRECTED PRN PRN Reason: Keep Vein Open Last Admin: 03/24/19 08:37 Dose: 10 ml Tamsulosin HCl (Flomax) 0.4 mg PO DAILY [facility] Last Admin: 03/30/19 08:31 Dose: 0.4 mg Trazodone HCl (Trazodone) 150 mg PO BEDTIME [facility] Last Admin: 03/29/19 21:19 Dose: 150 mg Discontinued Medications Bupivacaine HCl/Epinephrine Bitart (Marcaine 0.5%/Epinephrine 1:200,000) Confirm Administered Dose 50 ml .ROUTE .STK-MED ONE Stop: 03/24/19 12:49 Cyclobenzaprine HCl (Flexeril) 10 mg PO Q8H PRN PRN Reason: Spasms Last Admin: 03/25/19 04:14 Dose: 10 mg Dexamethasone (Dexamethasone) Confirm Administered Dose 4 mg .ROUTE .STK-MED ONE Stop: 03/24/19 13:24 Dexamethasone (Dexamethasone) Confirm Administered Dose 4 mg .ROUTE .STK-MED ONE Stop: 03/26/19 13:07 Enoxaparin Sodium (Lovenox) 100 mg SUBCUT Q12H [facility] Last Admin: 03/25/19 10:16 Dose: 100 mg Enoxaparin Sodium (Lovenox) 90 mg SUBCUT Q12H [facility] Last Admin: 03/26/19 08:25 Dose: 90 mg Fentanyl (Sublimaze) 50 mcg IVPUSH ONETIME ONE Stop: 03/24/19 11:53 Last Admin: 03/24/19 12:11 Dose: 50 mcg Fentanyl (Sublimaze) Confirm Administered Dose 250 mcg .ROUTE .STK-MED ONE Stop: 03/24/19 13:23 Fentanyl (Sublimaze) Confirm Administered Dose 250 mcg .ROUTE .STK-MED ONE Stop: 03/24/19 13:48 Fentanyl (Sublimaze) 50 mcg IVPUSH ONETIME ONE Stop: 03/24/19 14:30 Last Admin: 03/24/19 14:38 Dose: 50 mcg Fentanyl (Sublimaze) 50 mcg IVPUSH ONETIME ONE Stop: 03/24/19 14:49 Last Admin: 03/24/19 14:52 Dose: 50 mcg Fentanyl (Sublimaze) 50 mcg IVPUSH Q1H PRN PRN Reason: Pain (severe 7-10) Last Admin: 03/24/19 23:16 Dose: 50 mcg Fentanyl (Sublimaze) 50 mcg IVPUSH ONETIME ONE Stop: 03/26/19 10:56 Last Admin: 03/26/19 11:08 Dose: 50 mcg Fentanyl (Sublimaze) Confirm Administered Dose 250 mcg .ROUTE .STK-MED ONE Stop: 03/26/19 13:06 Fentanyl (Sublimaze) Confirm Administered Dose 250 mcg .ROUTE .STK-MED ONE Stop: 03/26/19 13:09 Glycopyrrolate (Robinul) Confirm Administered Dose 1 mg .ROUTE .STK-MED ONE Stop: 03/24/19 13:24 Glycopyrrolate (Robinul) Confirm Administered Dose 1 mg .ROUTE .STK-MED ONE Stop: 03/26/19 13:07 Hydromorphone HCl (Dilaudid) 1 mg IM ONETIME ONE Stop: 03/23/19 19:15 Last Admin: 03/23/19 19:20 Dose: 1 mg Hydromorphone HCl (Dilaudid) 2 mg PO Q8H ONE Stop: 03/23/19 19:45 Last Admin: 03/23/19 20:00 Dose: 2 mg Hydromorphone HCl (Dilaudid) 1 mg IVPUSH Q1H ONE Stop: 03/23/19 21:16 Last Admin: 03/23/19 21:21 Dose: 1 mg Hydromorphone HCl (Dilaudid) 1 mg IVPUSH Q1H PRN PRN Reason: Pain Last Admin: 03/28/19 11:40 Dose: 1 mg Hydromorphone HCl (Dilaudid) 4 mg PO Q3H PRN PRN Reason: Pain Last Admin: 03/24/19 21:00 Dose: 4 mg Hydroxyzine HCl (Vistaril) 100 mg IM Q4H PRN PRN Reason: Pain (severe 7-10) Last Admin: 03/26/19 01:20 Dose: 100 mg Cefazolin Sodium/Dextrose 2 gm (/ Premix) 50 mls @ 100 mls/hr IV ONETIME ONE Stop: 03/24/19 13:59 Last Admin: 03/24/19 13:35 Dose: 100 mls/hr Acetaminophen 1,000 mg/ Premix 100 mls @ 200 mls/hr IV ONETIME ONE Stop: 03/24/19 15:18 Last Admin: 03/24/19 15:01 Dose: 200 mls/hr Cefazolin Sodium/Dextrose 1 gm (/ Premix) 50 mls @ 100 mls/hr IV Q8H [facility] Stop: 03/25/19 06:29 Last Admin: 03/25/19 06:23 Dose: 100 mls/hr Cefazolin Sodium/Dextrose 1 gm (/ Premix) 50 mls @ 100 mls/hr IV Q8HR [facility] Stop: 03/25/19 22:29 Last Admin: 03/25/19 22:58 Dose: 100 mls/hr Cefazolin Sodium/Dextrose 2 gm (/ Premix) 50 mls @ 100 mls/hr IV ONETIME ONE Stop: 03/26/19 11:29 Last Admin: 03/26/19 11:19 Dose: 100 mls/hr Cefazolin Sodium/Dextrose 1 gm (/ Premix) 50 mls @ 100 mls/hr IV Q8HR [facility] Stop: 03/27/19 14:29 Last Admin: 03/27/19 13:13 Dose: 100 mls/hr Sodium Chloride (Normal Saline) 1,000 mls @ 50 mls/hr IV ASDIRECTED [facility] Last Admin: 03/26/19 15:26 Dose: 50 mls/hr Lidocaine HCl (Xylocaine 2% Jelly) 10 ml MUCMEM ONETIME ONE Stop: 03/24/19 20:39 Last Admin: 03/24/19 21:02 Dose: 10 ml Neostigmine Methylsulfate (Neostigmine) Confirm Administered Dose 5 mg .ROUTE .STK-MED ONE Stop: 03/24/19 13:24 Neostigmine Methylsulfate (Neostigmine) Confirm Administered Dose 5 mg .ROUTE .STK-MED ONE Stop: 03/26/19 13:07 Ondansetron HCl (Zofran) Confirm Administered Dose 4 mg .ROUTE .STK-MED ONE Stop: 03/24/19 13:24 Ondansetron HCl (Zofran) Confirm Administered Dose 4 mg .ROUTE .STK-MED ONE Stop: 03/26/19 13:07 Oxycodone/Acetaminophen (Percocet 325-5 Mg) 1 - 2 tab PO Q6H PRN PRN Reason: Pain Last Admin: 03/25/19 08:14 Dose: 2 tab Propofol (Diprivan 20 Ml) Confirm Administered Dose 200 mg .ROUTE .STK-MED ONE Stop: 03/24/19 13:24 Propofol (Diprivan 20 Ml) Confirm Administered Dose 200 mg .ROUTE .STK-MED ONE Stop: 03/26/19 13:07 Rocuronium [place] (Zemuron) Confirm Administered Dose 50 mg .ROUTE .STK-MED ONE Stop: 03/24/19 13:24 Rocuronium [place] (Zemuron) Confirm Administered Dose 50 mg .ROUTE .STK-MED ONE Stop: 03/26/19 13:07 Rocuronium [place] (Zemuron) Confirm Administered Dose 50 mg .ROUTE .STK-MED ONE Stop: 03/26/19 13:09 Sodium Biphosphate/Sodium Phosphate (Fleet Enema) 133 ml RECTAL ONETIME ONE Stop: 03/26/19 19:42 Last Admin: 03/26/19 20:04 Dose: 133 ml Succinylcholine Chloride (Quelicin) Confirm Administered Dose 200 mg .ROUTE .STK -MED ONE Stop: 03/24/19 13:24 Succinylcholine Chloride (Quelicin) Confirm Administered Dose 200 mg .ROUTE .STK -MED ONE Stop: 03/26/19 13:07 Tizanidine HCl (Zanaflex) 4 mg PO Q6H PRN PRN Reason: Muscle Spasm Last Admin: 03/26/19 09:49 Dose: 4 mg - Exam General: Alert, Oriented, Cooperative, Moderate Distress Lungs: Clear to Auscultation, Normal Respiratory Effort Cardiovascular: Regular Rate, Regular Rhythm, No Murmurs GI/Abdominal Exam: Soft, Non-Tender, No Organomegaly, No Distention Extremities: Leg Pain - Problem List Review Problem List Initiated/Reviewed/Updated: Yes - My Orders Last 24 Hours: My Active Orders 03/31/19 05:11 HGB [HEMOGLOBIN] [HEME] AM - Plan Plan:: ASSESSMENT AND PLAN - Large left lower extremity hematoma with compartment syndrome -recurrent hematoma with increase in pain -Pain control -Postoperative care per Dr. Jackson Acute blood loss anemia-hemoglobin stable -Reassess hemoglobin in a.m. Recent left knee arthroplasty - performed at [facility]. -Outpatient follow-up Maintenance issues - - DVT prophylaxis - enoxaparin - GI prophylaxis - not indicated - Nutrition - regular diet Disposition - I would anticipate discharge home vs care home after the hospital stay
[2019-03-30] MEDS: traZODone 50 MG Tab PO SCH (21:25)
[2019-03-31] MEDS ORDERED: ceFAZolin 2 GM in Premix Bag 1 BAG IV ONE (01:14)
--- NOTE | 2019-03-31 01:23 | PCM.SURGPN ---
- General Info Date of Service: 03/30/19 Post-Op Diagnosis: Hematoma, Compartment Syndrome left leg Functional Status: Reports: Pain Controlled, Tolerating Diet - Review of Systems General: Reports: No Symptoms Musculoskeletal: Reports: Leg Pain, Joint Swelling Neurological: Reports: No Symptoms Psychiatric: Reports: No Symptoms - Patient Data Vitals - Most Recent: Last Vital Signs Temp 37.3 C 03/30/19 22:27 Pulse 84 03/30/19 22:27 Resp 18 03/30/19 22:27 BP 126/80 03/30/19 22:27 Pulse Ox 95 03/30/19 22:27 Weight - Most Recent: 90.7 kg I&O - Last 24 Hours: Intake & Output 03/30/19 03/30/19 03/31/19 14:59 22:59 06:59 Intake Total 480 750 Output Total 1175 875 Balance -695 -125 Lab Results Last 24 Hrs: Laboratory Results - last 24 hr 03/30/19 Range/Units 04:00 Hgb 9.4 L (12.0-15.0) g/dL Yamil Results Last 24 Hrs: Microbiology 03/28/19 14:40 Aerobic Blood Culture - Preliminary Blood - Arm, Right NO GROWTH AFTER 2 DAYS Anaerobic Blood Culture - Preliminary NO GROWTH AFTER 2 DAYS 03/28/19 14:30 Aerobic Blood Culture - Preliminary Blood - Arm, Right NO GROWTH AFTER 2 DAYS Anaerobic Blood Culture - Preliminary NO GROWTH AFTER 2 DAYS 03/26/19 13:50 Gram Stain - Final Knee, Left Wound Culture - Final NO GROWTH AFTER 3 DAYS Anaerobic Culture - Final NO GROWTH AFTER 3 DAYS Med Orders - Current: Current Medications Diphenhydramine HCl (Benadryl) 25 mg PO Q4H PRN PRN Reason: Itching Duloxetine HCl (Cymbalta) 60 mg PO DAILY [facility] Last Admin: 03/30/19 08:31 Dose: 60 mg Ferrous Sulfate (Ferrous Sulfate) 325 mg PO BIDMEALS JAY Last Admin: 03/30/19 16:39 Dose: 325 mg Hydromorphone HCl (Dilaudid) 0.5 mg IVPUSH Q2H PRN PRN Reason: PAIN Last Admin: 03/30/19 20:49 Dose: 0.5 mg Cefazolin Sodium/Dextrose 2 gm (/ Premix) 50 mls @ 100 mls/hr IV ONETIME ONE Stop: 03/31/19 01:43 Magnesium Hydroxide (Milk Of Magnesia) 30 ml PO BID PRN PRN Reason: Constipation Oxycodone/Acetaminophen (Percocet 325-5 Mg) 2 tab PO Q4H PRN PRN Reason: Pain Last Admin: 03/30/19 21:25 Dose: 2 tab Pantoprazole Sodium (Protonix) 40 mg PO BIDAC [facility] Last Admin: 03/30/19 16:39 Dose: 40 mg Senna/Docusate Sodium (Senna Plus) 1 tab PO BID [facility] Last Admin: 03/30/19 21:25 Dose: 1 tab Sodium Chloride (Saline Flush) 10 ml FLUSH ASDIRECTED PRN PRN Reason: Keep Vein Open Last Admin: 03/24/19 08:37 Dose: 10 ml Tamsulosin HCl (Flomax) 0.4 mg PO DAILY [facility] Last Admin: 03/30/19 08:31 Dose: 0.4 mg Trazodone HCl (Trazodone) 150 mg PO BEDTIME [facility] Last Admin: 03/30/19 21:25 Dose: 150 mg Discontinued Medications Bupivacaine HCl/Epinephrine Bitart (Marcaine 0.5%/Epinephrine 1:200,000) Confirm Administered Dose 50 ml .ROUTE .STK-MED ONE Stop: 03/24/19 12:49 Cyclobenzaprine HCl (Flexeril) 10 mg PO Q8H PRN PRN Reason: Spasms Last Admin: 03/25/19 04:14 Dose: 10 mg Dexamethasone (Dexamethasone) Confirm Administered Dose 4 mg .ROUTE .STK-MED ONE Stop: 03/24/19 13:24 Dexamethasone (Dexamethasone) Confirm Administered Dose 4 mg .ROUTE .STK-MED ONE Stop: 03/26/19 13:07 Enoxaparin Sodium (Lovenox) 100 mg SUBCUT Q12H [facility] Last Admin: 03/25/19 10:16 Dose: 100 mg Enoxaparin Sodium (Lovenox) 90 mg SUBCUT Q12H [facility] Last Admin: 03/26/19 08:25 Dose: 90 mg Fentanyl (Sublimaze) 50 mcg IVPUSH ONETIME ONE Stop: 03/24/19 11:53 Last Admin: 03/24/19 12:11 Dose: 50 mcg Fentanyl (Sublimaze) Confirm Administered Dose 250 mcg .ROUTE .STK-MED ONE Stop: 03/24/19 13:23 Fentanyl (Sublimaze) Confirm Administered Dose 250 mcg .ROUTE .STK-MED ONE Stop: 03/24/19 13:48 Fentanyl (Sublimaze) 50 mcg IVPUSH ONETIME ONE Stop: 03/24/19 14:30 Last Admin: 03/24/19 14:38 Dose: 50 mcg Fentanyl (Sublimaze) 50 mcg IVPUSH ONETIME ONE Stop: 03/24/19 14:49 Last Admin: 03/24/19 14:52 Dose: 50 mcg Fentanyl (Sublimaze) 50 mcg IVPUSH Q1H PRN PRN Reason: Pain (severe 7-10) Last Admin: 03/24/19 23:16 Dose: 50 mcg Fentanyl (Sublimaze) 50 mcg IVPUSH ONETIME ONE Stop: 03/26/19 10:56 Last Admin: 03/26/19 11:08 Dose: 50 mcg Fentanyl (Sublimaze) Confirm Administered Dose 250 mcg .ROUTE .STK-MED ONE Stop: 03/26/19 13:06 Fentanyl (Sublimaze) Confirm Administered Dose 250 mcg .ROUTE .STK-MED ONE Stop: 03/26/19 13:09 Glycopyrrolate (Robinul) Confirm Administered Dose 1 mg .ROUTE .STK-MED ONE Stop: 03/24/19 13:24 Glycopyrrolate (Robinul) Confirm Administered Dose 1 mg .ROUTE .STK-MED ONE Stop: 03/26/19 13:07 Hydromorphone HCl (Dilaudid) 1 mg IM ONETIME ONE Stop: 03/23/19 19:15 Last Admin: 03/23/19 19:20 Dose: 1 mg Hydromorphone HCl (Dilaudid) 2 mg PO Q8H ONE Stop: 03/23/19 19:45 Last Admin: 03/23/19 20:00 Dose: 2 mg Hydromorphone HCl (Dilaudid) 1 mg IVPUSH Q1H ONE Stop: 03/23/19 21:16 Last Admin: 03/23/19 21:21 Dose: 1 mg Hydromorphone HCl (Dilaudid) 1 mg IVPUSH Q1H PRN PRN Reason: Pain Last Admin: 03/28/19 11:40 Dose: 1 mg Hydromorphone HCl (Dilaudid) 4 mg PO Q3H PRN PRN Reason: Pain Last Admin: 03/24/19 21:00 Dose: 4 mg Hydroxyzine HCl (Vistaril) 100 mg IM Q4H PRN PRN Reason: Pain (severe 7-10) Last Admin: 03/26/19 01:20 Dose: 100 mg Cefazolin Sodium/Dextrose 2 gm (/ Premix) 50 mls @ 100 mls/hr IV ONETIME ONE Stop: 03/24/19 13:59 Last Admin: 03/24/19 13:35 Dose: 100 mls/hr Acetaminophen 1,000 mg/ Premix 100 mls @ 200 mls/hr IV ONETIME ONE Stop: 03/24/19 15:18 Last Admin: 03/24/19 15:01 Dose: 200 mls/hr Cefazolin Sodium/Dextrose 1 gm (/ Premix) 50 mls @ 100 mls/hr IV Q8H [facility] Stop: 03/25/19 06:29 Last Admin: 03/25/19 06:23 Dose: 100 mls/hr Cefazolin Sodium/Dextrose 1 gm (/ Premix) 50 mls @ 100 mls/hr IV Q8HR [facility] Stop: 03/25/19 22:29 Last Admin: 03/25/19 22:58 Dose: 100 mls/hr Cefazolin Sodium/Dextrose 2 gm (/ Premix) 50 mls @ 100 mls/hr IV ONETIME ONE Stop: 03/26/19 11:29 Last Admin: 03/26/19 11:19 Dose: 100 mls/hr Cefazolin Sodium/Dextrose 1 gm (/ Premix) 50 mls @ 100 mls/hr IV Q8HR [facility] Stop: 03/27/19 14:29 Last Admin: 03/27/19 13:13 Dose: 100 mls/hr Sodium Chloride (Normal Saline) 1,000 mls @ 50 mls/hr IV ASDIRECTED [facility] Last Admin: 03/26/19 15:26 Dose: 50 mls/hr Lidocaine HCl (Xylocaine 2% Jelly) 10 ml MUCMEM ONETIME ONE Stop: 03/24/19 20:39 Last Admin: 03/24/19 21:02 Dose: 10 ml Neostigmine Methylsulfate (Neostigmine) Confirm Administered Dose 5 mg .ROUTE .STK-MED ONE Stop: 03/24/19 13:24 Neostigmine Methylsulfate (Neostigmine) Confirm Administered Dose 5 mg .ROUTE .STK-MED ONE Stop: 03/26/19 13:07 Ondansetron HCl (Zofran) Confirm Administered Dose 4 mg .ROUTE .STK-MED ONE Stop: 03/24/19 13:24 Ondansetron HCl (Zofran) Confirm Administered Dose 4 mg .ROUTE .STK-MED ONE Stop: 03/26/19 13:07 Oxycodone/Acetaminophen (Percocet 325-5 Mg) 1 - 2 tab PO Q6H PRN PRN Reason: Pain Last Admin: 03/25/19 08:14 Dose: 2 tab Propofol (Diprivan 20 Ml) Confirm Administered Dose 200 mg .ROUTE .STK-MED ONE Stop: 03/24/19 13:24 Propofol (Diprivan 20 Ml) Confirm Administered Dose 200 mg .ROUTE .STK-MED ONE Stop: 03/26/19 13:07 Rocuronium [place] (Zemuron) Confirm Administered Dose 50 mg .ROUTE .STK-MED ONE Stop: 03/24/19 13:24 Rocuronium [place] (Zemuron) Confirm Administered Dose 50 mg .ROUTE .STK-MED ONE Stop: 03/26/19 13:07 Rocuronium [place] (Zemuron) Confirm Administered Dose 50 mg .ROUTE .STK-MED ONE Stop: 03/26/19 13:09 Sodium Biphosphate/Sodium Phosphate (Fleet Enema) 133 ml RECTAL ONETIME ONE Stop: 03/26/19 19:42 Last Admin: 03/26/19 20:04 Dose: 133 ml Succinylcholine Chloride (Quelicin) Confirm Administered Dose 200 mg .ROUTE .STK -MED ONE Stop: 03/24/19 13:24 Succinylcholine Chloride (Quelicin) Confirm Administered Dose 200 mg .ROUTE .STK -MED ONE Stop: 03/26/19 13:07 Tizanidine HCl (Zanaflex) 4 mg PO Q6H PRN PRN Reason: Muscle Spasm Last Admin: 03/26/19 09:49 Dose: 4 mg - Exam Extremities: Other (left leg less tense, still some fullness in popliteal space , moving ankle and toes better) Skin: Other (blisters healing, lateral incision with eschar ) - Problem List & Annotations (1) DVT (deep venous thrombosis) SNOMED Code(s): 997005525 Code(s): I82.409 - ACUTE EMBOLISM AND THOMBOS UNSP DEEP VN UNSP LOWER EXTREMITY Status: Acute Current Visit: Yes Qualifiers: DVT location: lower extremity Affected thrombotic vein of extremity: unspecified lower extremity distal vein (2) Severe pain SNOMED Code(s): 93615096 Code(s): R52 - PAIN, UNSPECIFIED Status: Acute Current Visit: Yes (3) Nontraumatic compartment syndrome of left lower extremity SNOMED Code(s): 331469599 Code(s): M79.A22 - NONTRAUMATIC COMPARTMENT SYNDROME OF LEFT LOWER EXTREMITY Status: Acute Current Visit: Yes Annotation/Comment:: secondary to DVT (4) Hematoma of lower leg SNOMED Code(s): 650724376 Code(s): S80.10XA - CONTUSION OF UNSPECIFIED LOWER LEG, INITIAL ENCOUNTER Status: Acute Current Visit: Yes (5) Spontaneous hematoma of lower leg SNOMED Code(s): 479969711 Code(s): R23.3 - SPONTANEOUS ECCHYMOSES Status: Acute Current Visit: Yes (6) Anemia, posthemorrhagic, acute SNOMED Code(s): 862027338 Code(s): D62 - ACUTE POSTHEMORRHAGIC ANEMIA Status: Acute Current Visit: Yes - Problem List Review Problem List Initiated/Reviewed/Updated: Yes - My Orders Last 24 Hours: Active Orders 24 hr Category Date Time Status Verify Patient Consent Obtain [RC] ASDIRECTED Care 03/31/19 01:11 Ordered NPO Now [Nothing per Oral Now Diet] [DIET] Diet 03/31/19 Breakfast Ordered HGB [HEMOGLOBIN] [HEME] AM Lab 03/31/19 05:11 Ordered ceFAZolin [Ancef] 2 gm Med 03/31/19 01:14 Ordered Premix Bag 1 bag IV ONETIME Medication Orders Diphenhydramine HCl (Benadryl) 25 mg PO Q4H PRN PRN Reason: Itching Duloxetine HCl (Cymbalta) 60 mg PO DAILY [facility] Last Admin: 03/30/19 08:31 Dose: 60 mg Admin: 03/29/19 09:15 Dose: 60 mg Admin: 03/28/19 09:29 Dose: 60 mg Admin: 03/27/19 09:23 Dose: 60 mg Admin: 03/26/19 08:24 Dose: 60 mg Admin: 03/25/19 08:10 Dose: 60 mg Admin: 03/24/19 11:49 Dose: Not Given Ferrous Sulfate (Ferrous Sulfate) 325 mg PO BIDMEALS JAY Last Admin: 03/30/19 16:39 Dose: 325 mg Admin: 03/30/19 08:31 Dose: Not Given Admin: 03/29/19 16:21 Dose: Not Given Admin: 03/29/19 09:14 Dose: Not Given Admin: 03/28/19 17:45 Dose: Not Given Admin: 03/28/19 07:30 Dose: 325 mg Admin: 03/27/19 17:56 Dose: 325 mg Hydromorphone HCl (Dilaudid) 0.5 mg IVPUSH Q2H PRN PRN Reason: PAIN Last Admin: 03/30/19 20:49 Dose: 0.5 mg Admin: 03/30/19 18:45 Dose: 0.5 mg Admin: 03/30/19 09:03 Dose: 0.5 mg Admin: 03/29/19 19:45 Dose: 0.5 mg Admin: 03/29/19 10:25 Dose: 0.5 mg Cefazolin Sodium/Dextrose 2 gm (/ Premix) 50 mls @ 100 mls/hr IV ONETIME ONE Stop: 03/31/19 01:43 Magnesium Hydroxide (Milk Of Magnesia) 30 ml PO BID PRN PRN Reason: Constipation Oxycodone/Acetaminophen (Percocet 325-5 Mg) 2 tab PO Q4H PRN PRN Reason: Pain Last Admin: 03/30/19 21:25 Dose: 2 tab Admin: 03/30/19 17:17 Dose: 2 tab Admin: 03/30/19 13:02 Dose: 2 tab Admin: 03/30/19 09:05 Dose: 1 tab Admin: 03/30/19 07:29 Dose: 1 tab Admin: 03/29/19 21:19 Dose: 2 tab Admin: 03/29/19 16:24 Dose: 2 tab Admin: 03/29/19 12:36 Dose: 2 tab Admin: 03/29/19 09:13 Dose: 2 tab Admin: 03/29/19 05:32 Dose: 2 tab Admin: 03/28/19 21:52 Dose: 2 tab Admin: 03/28/19 17:50 Dose: 2 tab Admin: 03/28/19 14:02 Dose: 2 tab Admin: 03/28/19 09:29 Dose: 2 tab Admin: 03/28/19 05:11 Dose: 2 tab Admin: 03/28/19 00:37 Dose: 2 tab Admin: 03/27/19 19:27 Dose: 2 tab Admin: 03/27/19 15:29 Dose: 2 tab Admin: 03/27/19 11:37 Dose: 2 tab Admin: 03/27/19 07:35 Dose: 2 tab Admin: 03/27/19 03:01 Dose: 2 tab Admin: 03/26/19 20:04 Dose: 2 tab Admin: 03/26/19 08:22 Dose: 2 tab Admin: 03/26/19 01:48 Dose: 2 tab Admin: 03/25/19 21:58 Dose: 2 tab Admin: 03/25/19 18:00 Dose: 2 tab Admin: 03/25/19 13:16 Dose: 2 tab Pantoprazole Sodium (Protonix) 40 mg PO BIDAC [facility]AY Last Admin: 03/30/19 16:39 Dose: 40 mg Admin: 03/30/19 07:29 Dose: 40 mg Admin: 03/29/19 16:25 Dose: 40 mg Admin: 03/29/19 09:14 Dose: 40 mg Admin: 03/28/19 17:46 Dose: 40 mg Admin: 03/28/19 07:30 Dose: 40 mg Admin: 03/27/19 15:29 Dose: 40 mg Admin: 03/27/19 09:23 Dose: 40 mg Admin: 03/26/19 16:49 Dose: 40 mg Admin: 03/26/19 08:23 Dose: 40 mg Admin: 03/25/19 18:00 Dose: 40 mg Admin: 03/25/19 08:10 Dose: 40 mg Admin: 03/24/19 17:08 Dose: 40 mg Admin: 03/24/19 07:28 Dose: 40 mg Senna/Docusate Sodium (Senna Plus) 1 tab PO BID [facility] Last Admin: 03/30/19 21:25 Dose: 1 tab Admin: 03/30/19 08:31 Dose: 1 tab Admin: 03/29/19 21:19 Dose: 1 tab Admin: 03/29/19 09:15 Dose: 1 tab Admin: 03/28/19 21:21 Dose: 1 tab Admin: 03/28/19 09:29 Dose: 1 tab Admin: 03/27/19 20:27 Dose: 1 tab Admin: 03/27/19 09:23 Dose: 1 tab Admin: 03/26/19 20:04 Dose: 1 tab Admin: 03/26/19 08:24 Dose: 1 tab Admin: 03/25/19 21:58 Dose: 1 tab Admin: 03/25/19 11:40 Dose: 1 tab Sodium Chloride (Saline Flush) 10 ml FLUSH ASDIRECTED PRN PRN Reason: Keep Vein Open Last Admin: 03/24/19 08:37 Dose: 10 ml Admin: 03/24/19 00:43 Dose: 10 ml Admin: 03/24/19 00:00 Dose: 10 ml Tamsulosin HCl (Flomax) 0.4 mg PO DAILY [facility] Last Admin: 03/30/19 08:31 Dose: 0.4 mg Admin: 03/29/19 09:14 Dose: 0.4 mg Admin: 03/28/19 09:29 Dose: 0.4 mg Admin: 03/27/19 09:23 Dose: 0.4 mg Admin: 03/26/19 08:24 Dose: 0.4 mg Admin: 03/25/19 08:10 Dose: 0.4 mg Admin: 03/24/19 11:49 Dose: Not Given Trazodone HCl (Trazodone) 150 mg PO BEDTIME [facility] Last Admin: 03/30/19 21:25 Dose: 150 mg Admin: 03/29/19 21:19 Dose: 150 mg Admin: 03/28/19 21:21 Dose: 150 mg Admin: 03/27/19 20:27 Dose: 150 mg Admin: 03/26/19 20:04 Dose: 150 mg Admin: 03/25/19 21:58 Dose: 150 mg Admin: 03/24/19 21:01 Dose: 150 mg Admin: 03/24/19 01:03 Dose: 150 mg - Assessment Assessment (Free Text/Narrative):: Leg leg swelling improved, skin not tense but still has some reaccumlation of hematoma in posterior compartment. H/H stable and no active bleeding for past two days. - Plan Plan (Free Text/Narrative):: Plan to return [place] tomorrow for removal of wound vac and closure of leg wound , likely with a drain for 24 hours. Anticipate he will be able to be discharged Wednesday. or Wednesday.
[2019-03-31] MEDS ORDERED: Povidone-Iodine 10% Soln 118.25 ML Bottle ONE (06:38)
[2019-03-31] MEDS ORDERED: Bupivacaine 0.5% 50 ML MDV ONE (06:38)
[2019-03-31] MEDS: Pantoprazole 40 MG Tab.CR PO SCH ×2 (07:49→17:07)
[2019-03-31] MEDS ORDERED: fentaNYL 250 MCG/5 ML SDV ONE (08:25)
[2019-03-31] MEDS ORDERED: Rocuronium 50 MG/5 ML Vial ONE (08:26)
[2019-03-31] MEDS ORDERED: Propofol 200 MG/20 ML SDV ONE (08:26)
[2019-03-31] MEDS ORDERED: Succinylcholine 200 MG/10 ML MDV ONE (08:26)
[2019-03-31] MEDS ORDERED: Ondansetron 4 MG/2 ML SDV ONE (08:26)
[2019-03-31] MEDS ORDERED: Dexamethasone 4 MG/ML SDV ONE (08:26)
[2019-03-31] MEDS: Acetaminophen/oxyCODONE 325-5 MG Tab PO PRN ×4 (08:50→21:26)
[2019-03-31] MEDS: ceFAZolin 2 GM in Premix Bag 1 BAG IV ONE ×2 (09:45→12:09)
[2019-03-31] MEDS ORDERED: Sodium Chloride 0.9% 10 ML ONE (10:25)
[2019-03-31] MEDS ORDERED: Lactated Ringers 1,000 ML ONE (10:25)
[2019-03-31] MEDS ORDERED: fentaNYL 100 MCG/2 ML SDV ONE (10:36)
[2019-03-31] MEDS: Ferrous Sulfate 325 MG Tab PO SCH ×2 (11:46→17:07)
[2019-03-31] MEDS: Tamsulosin 0.4 MG Cap.ER PO SCH (11:46)
[2019-03-31] MEDS: DULoxetine 30 MG Cap PO SCH (11:47)
[2019-03-31] MEDS: Sodium Chloride 0.9% 1,000 ML IV SCH ×2 (13:08→23:16)
--- NOTE | 2019-03-31 13:44 | PCM.PN ---
- General Info Date of Service: 03/31/19 Subjective Update: Mr. Whitfield has been stable since yesterday with no further evidence of active bleeding. He was taken back to the operating room this morning for closure of his wound. He is been stable and doing well during the immediate postoperative period. Functional Status: Reports: Tolerating Diet, Urinating - Review of Systems General: Denies: Fever, Chills Pulmonary: Reports: No Symptoms Cardiovascular: Reports: No Symptoms Gastrointestinal: Reports: No Symptoms Musculoskeletal: Reports: Leg Pain - Patient Data Vitals - Most Recent: Last Vital Signs Temp 98.6 F 03/31/19 11:05 Pulse 79 03/31/19 11:05 Resp 4 L 03/31/19 11:05 BP 114/76 03/31/19 11:05 Pulse Ox 95 03/31/19 11:05 Weight - Most Recent: 199 lb 15.348 oz I&O - Last 24 Hours: Intake & Output 03/30/19 03/31/19 03/31/19 22:59 06:59 14:59 Intake Total 750 850 75 Output Total 875 400 5 Balance -125 450 70 Lab Results Last 24 Hours: Laboratory Results - last 24 hr 03/31/19 Range/Units 04:00 Hgb 10.0 L (12.0-15.0) g/dL Yamil Results Last 24 Hours: Microbiology 03/28/19 14:40 Aerobic Blood Culture - Preliminary Blood - Arm, Right NO GROWTH AFTER 2 DAYS Anaerobic Blood Culture - Preliminary NO GROWTH AFTER 2 DAYS 03/28/19 14:30 Aerobic Blood Culture - Preliminary Blood - Arm, Right NO GROWTH AFTER 2 DAYS Anaerobic Blood Culture - Preliminary NO GROWTH AFTER 2 DAYS Med Orders - Current: Current Medications Diphenhydramine HCl (Benadryl) 25 mg PO Q4H PRN PRN Reason: Itching Duloxetine HCl (Cymbalta) 60 mg PO DAILY [facility] Last Admin: 03/31/19 11:47 Dose: 60 mg Ferrous Sulfate (Ferrous Sulfate) 325 mg PO BIDMEALS JAY Last Admin: 03/31/19 11:46 Dose: 325 mg Hydromorphone HCl (Dilaudid) 0.5 mg IVPUSH Q2H PRN PRN Reason: PAIN Last Admin: 03/30/19 20:49 Dose: 0.5 mg Cefazolin Sodium/Dextrose 1 gm (/ Premix) 50 mls @ 100 mls/hr IV Q8H [facility] Stop: 04/03/19 18:29 Sodium Chloride (Normal Saline) 1,000 mls @ 100 mls/hr IV ASDIRECTED [facility] Last Admin: 03/31/19 13:08 Dose: 100 mls/hr Magnesium Hydroxide (Milk Of Magnesia) 30 ml PO BID PRN PRN Reason: Constipation Oxycodone/Acetaminophen (Percocet 325-5 Mg) 2 tab PO Q4H PRN PRN Reason: Pain Last Admin: 03/31/19 13:05 Dose: 2 tab Pantoprazole Sodium (Protonix) 40 mg PO BIDAC [facility] Last Admin: 03/31/19 07:49 Dose: 40 mg Senna/Docusate Sodium (Senna Plus) 1 tab PO BID [facility] Last Admin: 03/31/19 11:46 Dose: 1 tab Sodium Chloride (Saline Flush) 10 ml FLUSH ASDIRECTED PRN PRN Reason: Keep Vein Open Last Admin: 03/24/19 08:37 Dose: 10 ml Tamsulosin HCl (Flomax) 0.4 mg PO DAILY [facility] Last Admin: 03/31/19 11:46 Dose: 0.4 mg Trazodone HCl (Trazodone) 150 mg PO BEDTIME [facility] Last Admin: 03/30/19 21:25 Dose: 150 mg Discontinued Medications Bupivacaine HCl (Marcaine 0.5%) Confirm Administered Dose 50 ml .ROUTE .STK-MED ONE Stop: 03/31/19 06:39 Bupivacaine HCl/Epinephrine Bitart (Marcaine 0.5%/Epinephrine 1:200,000) Confirm Administered Dose 50 ml .ROUTE .STK-MED ONE Stop: 03/24/19 12:49 Cyclobenzaprine HCl (Flexeril) 10 mg PO Q8H PRN PRN Reason: Spasms Last Admin: 03/25/19 04:14 Dose: 10 mg Dexamethasone (Dexamethasone) Confirm Administered Dose 4 mg .ROUTE .STK-MED ONE Stop: 03/24/19 13:24 Dexamethasone (Dexamethasone) Confirm Administered Dose 4 mg .ROUTE .STK-MED ONE Stop: 03/26/19 13:07 Dexamethasone (Dexamethasone) Confirm Administered Dose 4 mg .ROUTE .STK-MED ONE Stop: 03/31/19 08:27 Enoxaparin Sodium (Lovenox) 100 mg SUBCUT Q12H [facility] Last Admin: 03/25/19 10:16 Dose: 100 mg Enoxaparin Sodium (Lovenox) 90 mg SUBCUT Q12H [facility] Last Admin: 03/26/19 08:25 Dose: 90 mg Fentanyl (Sublimaze) 50 mcg IVPUSH ONETIME ONE Stop: 03/24/19 11:53 Last Admin: 03/24/19 12:11 Dose: 50 mcg Fentanyl (Sublimaze) Confirm Administered Dose 250 mcg .ROUTE .STK-MED ONE Stop: 03/24/19 13:23 Fentanyl (Sublimaze) Confirm Administered Dose 250 mcg .ROUTE .STK-MED ONE Stop: 03/24/19 13:48 Fentanyl (Sublimaze) 50 mcg IVPUSH ONETIME ONE Stop: 03/24/19 14:30 Last Admin: 03/24/19 14:38 Dose: 50 mcg Fentanyl (Sublimaze) 50 mcg IVPUSH ONETIME ONE Stop: 03/24/19 14:49 Last Admin: 03/24/19 14:52 Dose: 50 mcg Fentanyl (Sublimaze) 50 mcg IVPUSH Q1H PRN PRN Reason: Pain (severe 7-10) Last Admin: 03/24/19 23:16 Dose: 50 mcg Fentanyl (Sublimaze) 50 mcg IVPUSH ONETIME ONE Stop: 03/26/19 10:56 Last Admin: 03/26/19 11:08 Dose: 50 mcg Fentanyl (Sublimaze) Confirm Administered Dose 250 mcg .ROUTE .STK-MED ONE Stop: 03/26/19 13:06 Fentanyl (Sublimaze) Confirm Administered Dose 250 mcg .ROUTE .STK-MED ONE Stop: 03/26/19 13:09 Fentanyl (Sublimaze) Confirm Administered Dose 250 mcg .ROUTE .STK-MED ONE Stop: 03/31/19 08:26 Fentanyl (Sublimaze) Confirm Administered Dose 100 mcg .ROUTE .STK-MED ONE Stop: 03/31/19 10:37 Glycopyrrolate (Robinul) Confirm Administered Dose 1 mg .ROUTE .STK-MED ONE Stop: 03/24/19 13:24 Glycopyrrolate (Robinul) Confirm Administered Dose 1 mg .ROUTE .STK-MED ONE Stop: 03/26/19 13:07 Hydromorphone HCl (Dilaudid) 1 mg IM ONETIME ONE Stop: 03/23/19 19:15 Last Admin: 03/23/19 19:20 Dose: 1 mg Hydromorphone HCl (Dilaudid) 2 mg PO Q8H ONE Stop: 03/23/19 19:45 Last Admin: 03/23/19 20:00 Dose: 2 mg Hydromorphone HCl (Dilaudid) 1 mg IVPUSH Q1H ONE Stop: 03/23/19 21:16 Last Admin: 03/23/19 21:21 Dose: 1 mg Hydromorphone HCl (Dilaudid) 1 mg IVPUSH Q1H PRN PRN Reason: Pain Last Admin: 03/28/19 11:40 Dose: 1 mg Hydromorphone HCl (Dilaudid) 4 mg PO Q3H PRN PRN Reason: Pain Last Admin: 03/24/19 21:00 Dose: 4 mg Hydroxyzine HCl (Vistaril) 100 mg IM Q4H PRN PRN Reason: Pain (severe 7-10) Last Admin: 03/26/19 01:20 Dose: 100 mg Cefazolin Sodium/Dextrose 2 gm (/ Premix) 50 mls @ 100 mls/hr IV ONETIME ONE Stop: 03/24/19 13:59 Last Admin: 03/24/19 13:35 Dose: 100 mls/hr Acetaminophen 1,000 mg/ Premix 100 mls @ 200 mls/hr IV ONETIME ONE Stop: 03/24/19 15:18 Last Admin: 03/24/19 15:01 Dose: 200 mls/hr Cefazolin Sodium/Dextrose 1 gm (/ Premix) 50 mls @ 100 mls/hr IV Q8H [facility] Stop: 03/25/19 06:29 Last Admin: 03/25/19 06:23 Dose: 100 mls/hr Cefazolin Sodium/Dextrose 1 gm (/ Premix) 50 mls @ 100 mls/hr IV Q8HR [facility] Stop: 03/25/19 22:29 Last Admin: 03/25/19 22:58 Dose: 100 mls/hr Cefazolin Sodium/Dextrose 2 gm (/ Premix) 50 mls @ 100 mls/hr IV ONETIME ONE Stop: 03/26/19 11:29 Last Admin: 03/26/19 11:19 Dose: 100 mls/hr Cefazolin Sodium/Dextrose 1 gm (/ Premix) 50 mls @ 100 mls/hr IV Q8HR JAY Stop: 03/27/19 14:29 Last Admin: 03/27/19 13:13 Dose: 100 mls/hr Sodium Chloride (Normal Saline) 1,000 mls @ 50 mls/hr IV ASDIRECTED [facility] Last Admin: 03/26/19 15:26 Dose: 50 mls/hr Cefazolin Sodium/Dextrose 2 gm (/ Premix) 50 mls @ 100 mls/hr IV ONETIME ONE Stop: 03/31/19 09:29 Last Admin: 03/31/19 12:09 Dose: Not Given Sodium Chloride (Normal Saline) Confirm Administered Dose 10 mls @ as directed .ROUTE .STK-MED ONE Stop: 03/31/19 10:26 Lactated Ringer's (Ringers, Lactated) Confirm Administered Dose 1,000 mls @ as directed .ROUTE .STK-MED ONE Stop: 03/31/19 10:26 Lidocaine HCl (Xylocaine 2% Jelly) 10 ml MUCMEM ONETIME ONE Stop: 03/24/19 20:39 Last Admin: 03/24/19 21:02 Dose: 10 ml Neostigmine Methylsulfate (Neostigmine) Confirm Administered Dose 5 mg .ROUTE .STK-MED ONE Stop: 03/24/19 13:24 Neostigmine Methylsulfate (Neostigmine) Confirm Administered Dose 5 mg .ROUTE .STK-MED ONE Stop: 03/26/19 13:07 Ondansetron HCl (Zofran) Confirm Administered Dose 4 mg .ROUTE .STK-MED ONE Stop: 03/24/19 13:24 Ondansetron HCl (Zofran) Confirm Administered Dose 4 mg .ROUTE .STK-MED ONE Stop: 03/26/19 13:07 Ondansetron HCl (Zofran) Confirm Administered Dose 4 mg .ROUTE .STK-MED ONE Stop: 03/31/19 08:27 Oxycodone/Acetaminophen (Percocet 325-5 Mg) 1 - 2 tab PO Q6H PRN PRN Reason: Pain Last Admin: 03/25/19 08:14 Dose: 2 tab Povidone Iodine (Betadine 10% Soln) Confirm Administered Dose 1 ml .ROUTE .K- MED ONE Stop: 03/31/19 06:39 Propofol (Diprivan 20 Ml) Confirm Administered Dose 200 mg .ROUTE .STK-MED ONE Stop: 03/24/19 13:24 Propofol (Diprivan 20 Ml) Confirm Administered Dose 200 mg .ROUTE .STK-MED ONE Stop: 03/26/19 13:07 Propofol (Diprivan 20 Ml) Confirm Administered Dose 200 mg .ROUTE .ST-MED ONE Stop: 03/31/19 08:27 Rocuronium [place] (Zemuron) Confirm Administered Dose 50 mg .ROUTE .STK-MED ONE Stop: 03/24/19 13:24 Rocuronium [place] (Zemuron) Confirm Administered Dose 50 mg .ROUTE .STK-MED ONE Stop: 03/26/19 13:07 Rocuronium [place] (Zemuron) Confirm Administered Dose 50 mg .ROUTE .[facility]-MED ONE Stop: 03/26/19 13:09 Rocuronium [place] (Zemuron) Confirm Administered Dose 50 mg .ROUTE .[facility]-MED ONE Stop: 03/31/19 08:27 Sodium Biphosphate/Sodium Phosphate (Fleet Enema) 133 ml RECTAL ONETIME ONE Stop: 03/26/19 19:42 Last Admin: 03/26/19 20:04 Dose: 133 ml Succinylcholine Chloride (Quelicin) Confirm Administered Dose 200 mg .ROUTE .STK -MED ONE Stop: 03/24/19 13:24 Succinylcholine Chloride (Quelicin) Confirm Administered Dose 200 mg .ROUTE .[facility] -MED ONE Stop: 03/26/19 13:07 Succinylcholine Chloride (Quelicin) Confirm Administered Dose 200 mg .ROUTE .ST -MED ONE Stop: 03/31/19 08:27 Tizanidine HCl (Zanaflex) 4 mg PO Q6H PRN PRN Reason: Muscle Spasm Last Admin: 03/26/19 09:49 Dose: 4 mg - Exam General: Alert, Oriented, Cooperative, Mild Distress Lungs: Clear to Auscultation, Normal Respiratory Effort Cardiovascular: Regular Rate, Regular Rhythm, No Murmurs GI/Abdominal Exam: Soft, Non-Tender, No Organomegaly, No Distention Extremities: Leg Pain - Problem List Review Problem List Initiated/Reviewed/Updated: Yes - Plan Plan:: ASSESSMENT AND PLAN - Large left lower extremity hematoma with compartment syndrome -recurrent hematoma with increase in pain, status post wound closure earlier today -Pain control -Postoperative care per Dr. Jackson Acute blood loss anemia-hemoglobin stable -Reassess hemoglobin in a.m. Recent left knee arthroplasty - performed at [facility]. -Outpatient follow-up Maintenance issues - - DVT prophylaxis - enoxaparin - GI prophylaxis - not indicated - Nutrition - regular diet Disposition - I would anticipate discharge home after the hospital stay
[2019-03-31] MEDS: ceFAZolin 1 GM in Premix Bag 1 BAG IV SCH (17:07)
[2019-03-31] MEDS: traZODone 50 MG Tab PO SCH (21:01)
[2019-03-31] MEDS ORDERED: Sodium Phosphate,Monobasic/Sodium Phosphate,Dibasic Enema 133 ML Bottle RECTAL ONE (21:22)
--- NOTE | 2019-03-31 21:39 | OR ---
DATE OF PROCEDURE: 03/31/2019 PREOPERATIVE DIAGNOSIS: 1. Open wound, left leg. 2. Recurrent hematoma, left lower leg. POSTOPERATIVE DIAGNOSES: 1. Open wound, left leg. 2. Recurrent hematoma, left lower leg. PROCEDURE: 1. Removal of wound VAC, left leg. 2. Evacuation of residual hematoma, left posterior compartment. 3. Primary closure, left leg wound. ANESTHESIA: General. INDICATIONS: Mr. Whitfield is a 68-year-old gentleman, who presented with acute swelling of his left lower leg resulting from hematoma into the superficial posterior compartment causing occlusion of the popliteal and the tibial veins and compartment syndrome. He underwent initial evacuation of hematoma and fasciotomy. Subsequently, he had reaccumulation of the hematoma and underwent a second evacuation. At that time, the medial incision was left open and a wound VAC was placed. He has had that in operation for the past several days. This has resulted in decrease in the swelling and tension on the skin. He has had no evidence of ongoing bleeding into the hematoma. He now presents for removal of the wound VAC, evacuation of any residual hematoma, and attempted primary closure of the leg wound. Risks, benefits, and potential complications of the procedure were discussed. DESCRIPTION OF PROCEDURE: After adequate anesthesia was obtained, the wound VAC was removed from the left leg. This revealed a medial incision with a gap of just over a centimeter in width. The muscle beneath this was red and viable and reactive. Also had several blisters in the left leg secondary to previous swelling. Wound was prepped with Betadine. Blunt dissection was carried out into the posterior compartment in the region of the previous hematoma. A much smaller residual hematoma was present. This was evaluated manually and with suction. It was then irrigated. The skin was evaluated for closure and deemed soft enough to allow primary closure without undue tension. There was no evidence of any ongoing compartment syndrome. A drain was placed in the posterior compartment just deep to the fascia and brought out through a separate stab incision. Edges of the wound were then freshened with a 10 blade. The wound was then closed using a combination of 2-0 and 3-0 nylon, using a [id number] suture to spread tension on the skin. This resulted in a complete closure of the wound without excessive tension. Drain was secured with a Tegaderm. The incision and blister sites were dressed with Xeroform gauze, 4x4s, and a light compressive dressing. The patient tolerated the procedure well. There were no complications. He was taken from the operating room in stable condition. Barrett Jackson MD /[id number]
--- NOTE | 2019-03-31 21:42 | OR ---
DATE OF PROCEDURE: 03/26/2019 PREOPERATIVE DIAGNOSIS: Recurrent hematoma, left lower leg. POSTOPERATIVE DIAGNOSIS: Recurrent hematoma, left lower leg. PROCEDURE: Evacuation of hematoma, left lower leg and application of wound VAC. ANESTHESIA: General. INDICATIONS: Mr. Whitfield is a 68-year-old gentleman who presented last week with a markedly swollen left lower leg secondary to a spontaneous hematoma in the posterior superficial compartment. This caused occlusion of the popliteal and the tibial veins. It was initially interpreted as a DVT. He developed persistent pain consistent with compartment syndrome and underwent fasciotomy with evacuation of hematoma. Over the course of the last 24 hours, he has developed increasing pain, tingling, and numbness of the foot and recurrent swelling, particularly in the posterior aspect of the leg. He is therefore returned to the operating room for evacuation of suspected recurrent hematoma. Risks, benefits, and potential complications of the procedure were discussed including the probability of application of a wound VAC at this time. DESCRIPTION OF PROCEDURE: After adequate anesthesia was obtained, the patient was supine. No tourniquet was utilized. Left leg was prepped and draped in a sterile fashion. He had several bullous lesions from significant swelling. These were debrided with sponge. It was prepped with Betadine. The previous medial incision was opened and explored. This resulted in immediate release of a recurrent hematoma under pressure. This was evacuated manually and with suction. No active bleeder could be identified through the medial incision. The fascia over the posterior superficial compartment was confirmed to be released proximally and distally. The deep posterior compartment was soft with no evidence of muscle damage. Superficial compartment also showed no evidence of muscle damage. The area of the hematoma was irrigated. The medial wound was then left open. A piece of wound VAC sponge was cut to fit the wound. This was then placed in the wound and covered with an occlusive dressing. The dressing was punctured and the wound VAC attachment was placed over this. This was then secured to the vacuum canister. Confirmation of a good seal was obtained. The lateral wound which had some eschar as well as the blisters were covered with Xeroform gauze, 4x4s, and a light compressive dressing was placed. The patient tolerated the procedure well. There were no complications. He was taken from the operating room in stable condition. Barrett Jackson MD /[id number]
[2019-03-31] MEDS: HYDROmorphone 0.5 MG/0.5 ML Syringe IVPUSH PRN (22:37)
[2019-04-01] MEDS: HYDROmorphone 0.5 MG/0.5 ML Syringe IVPUSH PRN ×3 (00:38→21:01)
[2019-04-01] MEDS: Acetaminophen/oxyCODONE 325-5 MG Tab PO PRN ×6 (01:27→23:05)
[2019-04-01] MEDS: ceFAZolin 1 GM in Premix Bag 1 BAG IV SCH ×3 (01:29→18:16)
[2019-04-01] MEDS: Pantoprazole 40 MG Tab.CR PO SCH ×2 (07:42→17:30)
[2019-04-01] MEDS: Ferrous Sulfate 325 MG Tab PO SCH ×2 (07:43→17:30)
[2019-04-01] MEDS: Tamsulosin 0.4 MG Cap.ER PO SCH (08:18)
[2019-04-01] MEDS: DULoxetine 30 MG Cap PO SCH (08:18)
--- NOTE | 2019-04-01 11:00 | PCM.PN ---
- General Info Date of Service: 04/01/19 Subjective Update: Mr. Whitfield has been stable since yesterday, able to ambulate significant distances in the hallway with use of a walker. Vital signs have remained stable and he has been afebrile. No further evidence of significant bleeding over the past 3 days. - Review of Systems General: Reports: Weakness. Denies: Fever, Chills Pulmonary: Reports: No Symptoms Cardiovascular: Reports: No Symptoms Gastrointestinal: Reports: No Symptoms Musculoskeletal: Reports: Leg Pain - Patient Data Vitals - Most Recent: Last Vital Signs Temp 96.7 F 04/01/19 07:15 Pulse 74 04/01/19 07:15 Resp 16 04/01/19 07:15 BP 121/72 04/01/19 07:15 Pulse Ox 97 04/01/19 07:15 Weight - Most Recent: 199 lb 15.348 oz I&O - Last 24 Hours: Intake & Output 03/31/19 04/01/19 04/01/19 22:59 06:59 14:59 Intake Total 1885 1827 480 Output Total 1350 605 Balance 535 1222 480 Yamil Results Last 24 Hours: Microbiology 03/28/19 14:40 Aerobic Blood Culture - Preliminary Blood - Arm, Right NO GROWTH AFTER 3 DAYS Anaerobic Blood Culture - Preliminary NO GROWTH AFTER 3 DAYS 03/28/19 14:30 Aerobic Blood Culture - Preliminary Blood - Arm, Right NO GROWTH AFTER 3 DAYS Anaerobic Blood Culture - Preliminary NO GROWTH AFTER 3 DAYS Med Orders - Current: Current Medications Diphenhydramine HCl (Benadryl) 25 mg PO Q4H PRN PRN Reason: Itching Duloxetine HCl (Cymbalta) 60 mg PO DAILY [facility] Last Admin: 04/01/19 08:18 Dose: 60 mg Ferrous Sulfate (Ferrous Sulfate) 325 mg PO BIDMEALS [facility] Last Admin: 04/01/19 07:43 Dose: 325 mg Hydromorphone HCl (Dilaudid) 0.5 mg IVPUSH Q2H PRN PRN Reason: PAIN Last Admin: 04/01/19 00:38 Dose: 0.5 mg Cefazolin Sodium/Dextrose 1 gm (/ Premix) 50 mls @ 100 mls/hr IV Q8H [facility] Stop: 04/03/19 18:29 Last Admin: 04/01/19 09:26 Dose: 100 mls/hr Magnesium Hydroxide (Milk Of Magnesia) 30 ml PO BID PRN PRN Reason: Constipation Oxycodone/Acetaminophen (Percocet 325-5 Mg) 2 tab PO Q4H PRN PRN Reason: Pain Last Admin: 04/01/19 10:02 Dose: 2 tab Pantoprazole Sodium (Protonix) 40 mg PO BIDAC [facility] Last Admin: 04/01/19 07:42 Dose: 40 mg Senna/Docusate Sodium (Senna Plus) 1 tab PO BID [facility] Last Admin: 04/01/19 08:18 Dose: 1 tab Sodium Chloride (Saline Flush) 10 ml FLUSH ASDIRECTED PRN PRN Reason: Keep Vein Open Last Admin: 03/24/19 08:37 Dose: 10 ml Tamsulosin HCl (Flomax) 0.4 mg PO DAILY [facility] Last Admin: 04/01/19 08:18 Dose: 0.4 mg Tizanidine HCl (Zanaflex) 4 mg PO Q6H PRN PRN Reason: Spasms Trazodone HCl (Trazodone) 150 mg PO BEDTIME [facility] Last Admin: 03/31/19 21:01 Dose: 150 mg Discontinued Medications Bupivacaine HCl (Marcaine 0.5%) Confirm Administered Dose 50 ml .ROUTE .STK-MED ONE Stop: 03/31/19 06:39 Bupivacaine HCl/Epinephrine Bitart (Marcaine 0.5%/Epinephrine 1:200,000) Confirm Administered Dose 50 ml .ROUTE .STK-MED ONE Stop: 03/24/19 12:49 Cyclobenzaprine HCl (Flexeril) 10 mg PO Q8H PRN PRN Reason: Spasms Last Admin: 03/25/19 04:14 Dose: 10 mg Dexamethasone (Dexamethasone) Confirm Administered Dose 4 mg .ROUTE .STK-MED ONE Stop: 03/24/19 13:24 Dexamethasone (Dexamethasone) Confirm Administered Dose 4 mg .ROUTE .STK-MED ONE Stop: 03/26/19 13:07 Dexamethasone (Dexamethasone) Confirm Administered Dose 4 mg .ROUTE .STK-MED ONE Stop: 03/31/19 08:27 Enoxaparin Sodium (Lovenox) 100 mg SUBCUT Q12H [facility] Last Admin: 03/25/19 10:16 Dose: 100 mg Enoxaparin Sodium (Lovenox) 90 mg SUBCUT Q12H [facility] Last Admin: 03/26/19 08:25 Dose: 90 mg Fentanyl (Sublimaze) 50 mcg IVPUSH ONETIME ONE Stop: 03/24/19 11:53 Last Admin: 03/24/19 12:11 Dose: 50 mcg Fentanyl (Sublimaze) Confirm Administered Dose 250 mcg .ROUTE .STK-MED ONE Stop: 03/24/19 13:23 Fentanyl (Sublimaze) Confirm Administered Dose 250 mcg .ROUTE .STK-MED ONE Stop: 03/24/19 13:48 Fentanyl (Sublimaze) 50 mcg IVPUSH ONETIME ONE Stop: 03/24/19 14:30 Last Admin: 03/24/19 14:38 Dose: 50 mcg Fentanyl (Sublimaze) 50 mcg IVPUSH ONETIME ONE Stop: 03/24/19 14:49 Last Admin: 03/24/19 14:52 Dose: 50 mcg Fentanyl (Sublimaze) 50 mcg IVPUSH Q1H PRN PRN Reason: Pain (severe 7-10) Last Admin: 03/24/19 23:16 Dose: 50 mcg Fentanyl (Sublimaze) 50 mcg IVPUSH ONETIME ONE Stop: 03/26/19 10:56 Last Admin: 03/26/19 11:08 Dose: 50 mcg Fentanyl (Sublimaze) Confirm Administered Dose 250 mcg .ROUTE .STK-MED ONE Stop: 03/26/19 13:06 Fentanyl (Sublimaze) Confirm Administered Dose 250 mcg .ROUTE .STK-MED ONE Stop: 03/26/19 13:09 Fentanyl (Sublimaze) Confirm Administered Dose 250 mcg .ROUTE .STK-MED ONE Stop: 03/31/19 08:26 Fentanyl (Sublimaze) Confirm Administered Dose 100 mcg .ROUTE .STK-MED ONE Stop: 03/31/19 10:37 Glycopyrrolate (Robinul) Confirm Administered Dose 1 mg .ROUTE .STK-MED ONE Stop: 03/24/19 13:24 Glycopyrrolate (Robinul) Confirm Administered Dose 1 mg .ROUTE .STK-MED ONE Stop: 03/26/19 13:07 Hydromorphone HCl (Dilaudid) 1 mg IM ONETIME ONE Stop: 03/23/19 19:15 Last Admin: 03/23/19 19:20 Dose: 1 mg Hydromorphone HCl (Dilaudid) 2 mg PO Q8H ONE Stop: 03/23/19 19:45 Last Admin: 03/23/19 20:00 Dose: 2 mg Hydromorphone HCl (Dilaudid) 1 mg IVPUSH Q1H ONE Stop: 03/23/19 21:16 Last Admin: 03/23/19 21:21 Dose: 1 mg Hydromorphone HCl (Dilaudid) 1 mg IVPUSH Q1H PRN PRN Reason: Pain Last Admin: 03/28/19 11:40 Dose: 1 mg Hydromorphone HCl (Dilaudid) 4 mg PO Q3H PRN PRN Reason: Pain Last Admin: 03/24/19 21:00 Dose: 4 mg Hydroxyzine HCl (Vistaril) 100 mg IM Q4H PRN PRN Reason: Pain (severe 7-10) Last Admin: 03/26/19 01:20 Dose: 100 mg Cefazolin Sodium/Dextrose 2 gm (/ Premix) 50 mls @ 100 mls/hr IV ONETIME ONE Stop: 03/24/19 13:59 Last Admin: 03/24/19 13:35 Dose: 100 mls/hr Acetaminophen 1,000 mg/ Premix 100 mls @ 200 mls/hr IV ONETIME ONE Stop: 03/24/19 15:18 Last Admin: 03/24/19 15:01 Dose: 200 mls/hr Cefazolin Sodium/Dextrose 1 gm (/ Premix) 50 mls @ 100 mls/hr IV Q8H [facility] Stop: 03/25/19 06:29 Last Admin: 03/25/19 06:23 Dose: 100 mls/hr Cefazolin Sodium/Dextrose 1 gm (/ Premix) 50 mls @ 100 mls/hr IV Q8HR [facility] Stop: 03/25/19 22:29 Last Admin: 03/25/19 22:58 Dose: 100 mls/hr Cefazolin Sodium/Dextrose 2 gm (/ Premix) 50 mls @ 100 mls/hr IV ONETIME ONE Stop: 03/26/19 11:29 Last Admin: 03/26/19 11:19 Dose: 100 mls/hr Cefazolin Sodium/Dextrose 1 gm (/ Premix) 50 mls @ 100 mls/hr IV Q8HR [facility] Stop: 03/27/19 14:29 Last Admin: 03/27/19 13:13 Dose: 100 mls/hr Sodium Chloride (Normal Saline) 1,000 mls @ 50 mls/hr IV ASDIRECTED [facility] Last Admin: 03/26/19 15:26 Dose: 50 mls/hr Cefazolin Sodium/Dextrose 2 gm (/ Premix) 50 mls @ 100 mls/hr IV ONETIME ONE Stop: 03/31/19 09:29 Last Admin: 03/31/19 12:09 Dose: Not Given Sodium Chloride (Normal Saline) Confirm Administered Dose 10 mls @ as directed .ROUTE .STK-MED ONE Stop: 03/31/19 10:26 Lactated Ringer's (Ringers, Lactated) Confirm Administered Dose 1,000 mls @ as directed .ROUTE .STK-MED ONE Stop: 03/31/19 10:26 Sodium Chloride (Normal Saline) 1,000 mls @ 100 mls/hr IV ASDIRECTED [facility] Last Admin: 03/31/19 23:16 Dose: 100 mls/hr Lidocaine HCl (Xylocaine 2% Jelly) 10 ml MUCMEM ONETIME ONE Stop: 03/24/19 20:39 Last Admin: 03/24/19 21:02 Dose: 10 ml Neostigmine Methylsulfate (Neostigmine) Confirm Administered Dose 5 mg .ROUTE .STK-MED ONE Stop: 03/24/19 13:24 Neostigmine Methylsulfate (Neostigmine) Confirm Administered Dose 5 mg .ROUTE .STK-MED ONE Stop: 03/26/19 13:07 Ondansetron HCl (Zofran) Confirm Administered Dose 4 mg .ROUTE .STK-MED ONE Stop: 03/24/19 13:24 Ondansetron HCl (Zofran) Confirm Administered Dose 4 mg .ROUTE .STK-MED ONE Stop: 03/26/19 13:07 Ondansetron HCl (Zofran) Confirm Administered Dose 4 mg .ROUTE .STK-MED ONE Stop: 03/31/19 08:27 Oxycodone/Acetaminophen (Percocet 325-5 Mg) 1 - 2 tab PO Q6H PRN PRN Reason: Pain Last Admin: 03/25/19 08:14 Dose: 2 tab Povidone Iodine (Betadine 10% Soln) Confirm Administered Dose 1 [facility] Stop: 03/31/19 06:39 Propofol (Diprivan 20 Ml) Confirm Administered Dose 200 mg .[facility]TE [facility] Stop: 03/24/19 13:24 Propofol (Diprivan 20 Ml) Confirm Administered Dose 200 mg .ROUTE .K-MED ONE Stop: 03/26/19 13:07 Propofol (Diprivan 20 Ml) Confirm Administered Dose 200 mg .[facility] Stop: 03/31/19 08:27 Rocuronium Baggs (Zemuron) Confirm Administered Dose 50 mg .[facility] Stop: 03/24/19 13:24 Rocuronium Baggs (Zemuron) Confirm Administered Dose 50 mg .[facility] Stop: 03/26/19 13:07 Rocuronium Baggs (Zemuron) Confirm Administered Dose 50 mg .[facility] Stop: 03/26/19 13:09 Rocuronium Baggs (Zemuron) Confirm Administered Dose 50 mg .[facility] Stop: 03/31/19 08:27 Sodium Biphosphate/Sodium Phosphate (Fleet Enema) 133 ml RECTAL ONETIME ONE Stop: 03/26/19 19:42 Last Admin: 03/26/19 20:04 Dose: 133 ml Sodium Biphosphate/Sodium Phosphate (Fleet Enema) 133 ml RECTAL ONETIME ONE Stop: 03/31/19 21:23 Last Admin: 03/31/19 22:08 Dose: 133 ml Succinylcholine Chloride (Quelicin) Confirm Administered Dose 200 mg .[facility] Stop: 03/24/19 13:24 Succinylcholine Chloride (Quelicin) Confirm Administered Dose 200 mg .[facility]TE [facility] Stop: 03/26/19 13:07 Succinylcholine Chloride (Quelicin) Confirm Administered Dose 200 mg .[facility]TE [facility] Stop: 03/31/19 08:27 Tizanidine HCl (Zanaflex) 4 mg PO Q6H PRN PRN Reason: Muscle Spasm Last Admin: 03/26/19 09:49 Dose: 4 mg - Exam General: Alert, Oriented, Cooperative, Mild Distress Lungs: Clear to Auscultation, Normal Respiratory Effort Cardiovascular: Regular Rate, Regular Rhythm, No Murmurs GI/Abdominal Exam: Soft, Non-Tender, No Organomegaly, No Distention Extremities: Leg Pain - Problem List Review Problem List Initiated/Reviewed/Updated: Yes - My Orders Last 24 Hours: My Active Orders 04/01/19 09:28 tiZANidine [Zanaflex] 4 mg PO Q6H PRN 04/01/19 09:30 Convert IV to Saline Lock [OM.PC] Routine - Plan Plan:: ASSESSMENT AND PLAN - Large left lower extremity hematoma with compartment syndrome -stable over the past few days with no further evidence of active bleeding, doing well with PT and ambulating with use of a walker -Pain control -Postoperative care per Dr. Jackson Acute blood loss anemia-hemoglobin stable Recent left knee arthroplasty - performed at [facility]. -Outpatient follow-up Maintenance issues - - DVT prophylaxis - enoxaparin - GI prophylaxis - not indicated - Nutrition - regular diet Disposition - I would anticipate discharge home after the hospital stay
[2019-04-01] MEDS: tiZANidine 4 MG Tab PO PRN ×2 (11:28→20:13)
[2019-04-01] MEDS ORDERED: HYDROmorphone 0.5 MG/0.5 ML Syringe IVPUSH ONE (12:04)
[2019-04-01] MEDS ORDERED: fentaNYL 100 MCG/2 ML SDV IVPUSH ONE (12:29)
[2019-04-01] MEDS: fentaNYL 100 MCG/2 ML SDV IVPUSH PRN ×2 (13:12→20:00)
[2019-04-01] MEDS: traZODone 50 MG Tab PO SCH (20:14)
[2019-04-02] MEDS: ceFAZolin 1 GM in Premix Bag 1 BAG IV SCH ×2 (02:00→09:02)
[2019-04-02] MEDS: fentaNYL 100 MCG/2 ML SDV IVPUSH PRN (02:55)
[2019-04-02] MEDS: Acetaminophen/oxyCODONE 325-5 MG Tab PO PRN ×5 (03:05→21:04)
[2019-04-02] MEDS: Pantoprazole 40 MG Tab.CR PO SCH ×2 (07:45→17:09)
[2019-04-02] MEDS: Ferrous Sulfate 325 MG Tab PO SCH ×2 (07:46→17:09)
[2019-04-02] MEDS: Tamsulosin 0.4 MG Cap.ER PO SCH (09:01)
[2019-04-02] MEDS: DULoxetine 30 MG Cap PO SCH (09:01)
--- NOTE | 2019-04-02 10:56 | PCM.PN ---
- General Info Date of Service: 04/02/19 Subjective Update: Mr. Whitfield experience increased pain in his leg late morning and early afternoon yesterday. With IV fentanyl pain has come under good control and he is feeling better today. He continues to be able to ambulate short distances. No further evidence of active bleeding. Functional Status: Reports: Pain Controlled, Tolerating Diet, Ambulating, Urinating - Review of Systems General: Reports: Weakness. Denies: Fever, Chills Pulmonary: Reports: No Symptoms Cardiovascular: Reports: No Symptoms Gastrointestinal: Reports: No Symptoms Musculoskeletal: Reports: Leg Pain - Patient Data Vitals - Most Recent: Last Vital Signs Temp 96.9 F 04/02/19 07:33 Pulse 69 04/02/19 07:33 Resp 16 04/02/19 07:33 BP 115/75 04/02/19 07:33 Pulse Ox 98 04/02/19 07:33 Weight - Most Recent: 199 lb 15.348 oz I&O - Last 24 Hours: Intake & Output 04/01/19 04/02/19 04/02/19 22:59 06:59 14:59 Intake Total 1693 852 720 Output Total 1500 675 675 Balance 193 177 45 Yamil Results Last 24 Hours: Microbiology 03/28/19 14:40 Aerobic Blood Culture - Preliminary Blood - Arm, Right NO GROWTH AFTER 4 DAYS Anaerobic Blood Culture - Preliminary NO GROWTH AFTER 4 DAYS 03/28/19 14:30 Aerobic Blood Culture - Preliminary Blood - Arm, Right NO GROWTH AFTER 4 DAYS Anaerobic Blood Culture - Preliminary NO GROWTH AFTER 4 DAYS Med Orders - Current: Current Medications Diphenhydramine HCl (Benadryl) 25 mg PO Q4H PRN PRN Reason: Itching Duloxetine HCl (Cymbalta) 60 mg PO DAILY [facility] Last Admin: 04/02/19 09:01 Dose: 60 mg Fentanyl (Sublimaze) 50 mcg IVPUSH Q1H PRN PRN Reason: Pain (severe 7-10) Last Admin: 04/02/19 02:55 Dose: 50 mcg Ferrous Sulfate (Ferrous Sulfate) 325 mg PO BIDMEALS [facility] Last Admin: 04/02/19 07:46 Dose: 325 mg Cefazolin Sodium/Dextrose 1 gm (/ Premix) 50 mls @ 100 mls/hr IV Q8H [facility] Stop: 04/03/19 18:29 Last Admin: 04/02/19 09:02 Dose: 100 mls/hr Magnesium Hydroxide (Milk Of Magnesia) 30 ml PO BID PRN PRN Reason: Constipation Oxycodone/Acetaminophen (Percocet 325-5 Mg) 2 tab PO Q4H PRN PRN Reason: Pain Last Admin: 04/02/19 07:47 Dose: 2 tab Pantoprazole Sodium (Protonix) 40 mg PO BIDAC [facility] Last Admin: 04/02/19 07:45 Dose: 40 mg Senna/Docusate Sodium (Senna Plus) 1 tab PO BID [facility] Last Admin: 04/02/19 09:00 Dose: 1 tab Sodium Chloride (Saline Flush) 10 ml FLUSH ASDIRECTED PRN PRN Reason: Keep Vein Open Last Admin: 03/24/19 08:37 Dose: 10 ml Tamsulosin HCl (Flomax) 0.4 mg PO DAILY [facility] Last Admin: 04/02/19 09:01 Dose: 0.4 mg Tizanidine HCl (Zanaflex) 4 mg PO Q6H PRN PRN Reason: Spasms Last Admin: 04/01/19 20:13 Dose: 4 mg Trazodone HCl (Trazodone) 150 mg PO BEDTIME [facility] Last Admin: 04/01/19 20:14 Dose: 150 mg Discontinued Medications Bupivacaine HCl (Marcaine 0.5%) Confirm Administered Dose 50 ml .ROUTE .[facility]K-MED ONE Stop: 03/31/19 06:39 Bupivacaine HCl/Epinephrine Bitart (Marcaine 0.5%/Epinephrine 1:200,000) Confirm Administered Dose 50 ml .ROUTE .STK-MED ONE Stop: 03/24/19 12:49 Cyclobenzaprine HCl (Flexeril) 10 mg PO Q8H PRN PRN Reason: Spasms Last Admin: 03/25/19 04:14 Dose: 10 mg Dexamethasone (Dexamethasone) Confirm Administered Dose 4 mg .ROUTE .STK-MED ONE Stop: 03/24/19 13:24 Dexamethasone (Dexamethasone) Confirm Administered Dose 4 mg .ROUTE .STK-MED ONE Stop: 03/26/19 13:07 Dexamethasone (Dexamethasone) Confirm Administered Dose 4 mg .ROUTE .STK-MED ONE Stop: 03/31/19 08:27 Enoxaparin Sodium (Lovenox) 100 mg SUBCUT Q12H [facility] Last Admin: 03/25/19 10:16 Dose: 100 mg Enoxaparin Sodium (Lovenox) 90 mg SUBCUT Q12H [facility] Last Admin: 03/26/19 08:25 Dose: 90 mg Fentanyl (Sublimaze) 50 mcg IVPUSH ONETIME ONE Stop: 03/24/19 11:53 Last Admin: 03/24/19 12:11 Dose: 50 mcg Fentanyl (Sublimaze) Confirm Administered Dose 250 mcg .ROUTE .STK-MED ONE Stop: 03/24/19 13:23 Fentanyl (Sublimaze) Confirm Administered Dose 250 mcg .ROUTE .STK-MED ONE Stop: 03/24/19 13:48 Fentanyl (Sublimaze) 50 mcg IVPUSH ONETIME ONE Stop: 03/24/19 14:30 Last Admin: 03/24/19 14:38 Dose: 50 mcg Fentanyl (Sublimaze) 50 mcg IVPUSH ONETIME ONE Stop: 03/24/19 14:49 Last Admin: 03/24/19 14:52 Dose: 50 mcg Fentanyl (Sublimaze) 50 mcg IVPUSH Q1H PRN PRN Reason: Pain (severe 7-10) Last Admin: 03/24/19 23:16 Dose: 50 mcg Fentanyl (Sublimaze) 50 mcg IVPUSH ONETIME ONE Stop: 03/26/19 10:56 Last Admin: 03/26/19 11:08 Dose: 50 mcg Fentanyl (Sublimaze) Confirm Administered Dose 250 mcg .ROUTE .STK-MED ONE Stop: 03/26/19 13:06 Fentanyl (Sublimaze) Confirm Administered Dose 250 mcg .ROUTE .STK-MED ONE Stop: 03/26/19 13:09 Fentanyl (Sublimaze) Confirm Administered Dose 250 mcg .ROUTE .STK-MED ONE Stop: 03/31/19 08:26 Fentanyl (Sublimaze) Confirm Administered Dose 100 mcg .ROUTE .STK-MED ONE Stop: 03/31/19 10:37 Fentanyl (Sublimaze) 50 mcg IVPUSH ONETIME ONE Stop: 04/01/19 12:30 Last Admin: 04/01/19 12:35 Dose: 50 mcg Glycopyrrolate (Robinul) Confirm Administered Dose 1 mg .ROUTE .STK-MED ONE Stop: 03/24/19 13:24 Glycopyrrolate (Robinul) Confirm Administered Dose 1 mg .ROUTE .STK-MED ONE Stop: 03/26/19 13:07 Hydromorphone HCl (Dilaudid) 1 mg IM ONETIME ONE Stop: 03/23/19 19:15 Last Admin: 03/23/19 19:20 Dose: 1 mg Hydromorphone HCl (Dilaudid) 2 mg PO Q8H ONE Stop: 03/23/19 19:45 Last Admin: 03/23/19 20:00 Dose: 2 mg Hydromorphone HCl (Dilaudid) 1 mg IVPUSH Q1H ONE Stop: 03/23/19 21:16 Last Admin: 03/23/19 21:21 Dose: 1 mg Hydromorphone HCl (Dilaudid) 1 mg IVPUSH Q1H PRN PRN Reason: Pain Last Admin: 03/28/19 11:40 Dose: 1 mg Hydromorphone HCl (Dilaudid) 4 mg PO Q3H PRN PRN Reason: Pain Last Admin: 03/24/19 21:00 Dose: 4 mg Hydromorphone HCl (Dilaudid) 0.5 mg IVPUSH Q2H PRN PRN Reason: PAIN Last Admin: 04/01/19 21:01 Dose: 0.5 mg Hydromorphone HCl (Dilaudid) 0.5 mg IVPUSH ONETIME ONE Stop: 04/01/19 12:05 Last Admin: 04/01/19 12:07 Dose: 0.5 mg Hydroxyzine HCl (Vistaril) 100 mg IM Q4H PRN PRN Reason: Pain (severe 7-10) Last Admin: 03/26/19 01:20 Dose: 100 mg Cefazolin Sodium/Dextrose 2 gm (/ Premix) 50 mls @ 100 mls/hr IV ONETIME ONE Stop: 03/24/19 13:59 Last Admin: 03/24/19 13:35 Dose: 100 mls/hr Acetaminophen 1,000 mg/ Premix 100 mls @ 200 mls/hr IV ONETIME ONE Stop: 03/24/19 15:18 Last Admin: 03/24/19 15:01 Dose: 200 mls/hr Cefazolin Sodium/Dextrose 1 gm (/ Premix) 50 mls @ 100 mls/hr IV Q8H [facility] Stop: 03/25/19 06:29 Last Admin: 03/25/19 06:23 Dose: 100 mls/hr Cefazolin Sodium/Dextrose 1 gm (/ Premix) 50 mls @ 100 mls/hr IV Q8HR [facility] Stop: 03/25/19 22:29 Last Admin: 03/25/19 22:58 Dose: 100 mls/hr Cefazolin Sodium/Dextrose 2 gm (/ Premix) 50 mls @ 100 mls/hr IV ONETIME ONE Stop: 03/26/19 11:29 Last Admin: 03/26/19 11:19 Dose: 100 mls/hr Cefazolin Sodium/Dextrose 1 gm (/ Premix) 50 mls @ 100 mls/hr IV Q8HR [facility] Stop: 03/27/19 14:29 Last Admin: 03/27/19 13:13 Dose: 100 mls/hr Sodium Chloride (Normal Saline) 1,000 mls @ 50 mls/hr IV ASDIRECTED [facility] Last Admin: 03/26/19 15:26 Dose: 50 mls/hr Cefazolin Sodium/Dextrose 2 gm (/ Premix) 50 mls @ 100 mls/hr IV ONETIME ONE Stop: 03/31/19 09:29 Last Admin: 03/31/19 12:09 Dose: Not Given Sodium Chloride (Normal Saline) Confirm Administered Dose 10 mls @ as directed .ROUTE .STK-MED ONE Stop: 03/31/19 10:26 Lactated Ringer's (Ringers, Lactated) Confirm Administered Dose 1,000 mls @ as directed .ROUTE .STK-MED ONE Stop: 03/31/19 10:26 Sodium Chloride (Normal Saline) 1,000 mls @ 100 mls/hr IV ASDIRECTED [facility] Last Admin: 03/31/19 23:16 Dose: 100 mls/hr Lidocaine HCl (Xylocaine 2% Jelly) 10 ml MUCMEM ONETIME ONE Stop: 03/24/19 20:39 Last Admin: 03/24/19 21:02 Dose: 10 ml Neostigmine Methylsulfate (Neostigmine) Confirm Administered Dose 5 mg .ROUTE .STK-MED ONE Stop: 03/24/19 13:24 Neostigmine Methylsulfate (Neostigmine) Confirm Administered Dose 5 mg .ROUTE .STK-MED ONE Stop: 03/26/19 13:07 Ondansetron HCl (Zofran) Confirm Administered Dose 4 mg .ROUTE .STK-MED ONE Stop: 03/24/19 13:24 Ondansetron HCl (Zofran) Confirm Administered Dose 4 mg .ROUTE .STK-MED ONE Stop: 03/26/19 13:07 Ondansetron HCl (Zofran) Confirm Administered Dose 4 mg .ROUTE .STK-MED ONE Stop: 03/31/19 08:27 Oxycodone/Acetaminophen (Percocet 325-5 Mg) 1 - 2 tab PO Q6H PRN PRN Reason: Pain Last Admin: 03/25/19 08:14 Dose: 2 tab Povidone Iodine (Betadine 10% Soln) Confirm Administered Dose 1 ml .ROUTE .STK- MED ONE Stop: 03/31/19 06:39 Propofol (Diprivan 20 Ml) Confirm Administered Dose 200 mg .ROUTE .STK-MED ONE Stop: 03/24/19 13:24 Propofol (Diprivan 20 Ml) Confirm Administered Dose 200 mg .ROUTE .STK-MED ONE Stop: 03/26/19 13:07 Propofol (Diprivan 20 Ml) Confirm Administered Dose 200 mg .ROUTE .STK-MED ONE Stop: 03/31/19 08:27 Rocuronium Edward (Zemuron) Confirm Administered Dose 50 mg .ROUTE .STK-MED ONE Stop: 03/24/19 13:24 Rocuronium Edward (Zemuron) Confirm Administered Dose 50 mg .ROUTE .STK-MED ONE Stop: 03/26/19 13:07 Rocuronium Edward (Zemuron) Confirm Administered Dose 50 mg .ROUTE .STK-MED ONE Stop: 03/26/19 13:09 Rocuronium Edward (Zemuron) Confirm Administered Dose 50 mg .ROUTE .STK-MED ONE Stop: 03/31/19 08:27 Sodium Biphosphate/Sodium Phosphate (Fleet Enema) 133 ml RECTAL ONETIME ONE Stop: 03/26/19 19:42 Last Admin: 03/26/19 20:04 Dose: 133 ml Sodium Biphosphate/Sodium Phosphate (Fleet Enema) 133 ml RECTAL ONETIME ONE Stop: 03/31/19 21:23 Last Admin: 03/31/19 22:08 Dose: 133 ml Succinylcholine Chloride (Quelicin) Confirm Administered Dose 200 mg .ROUTE .STK -MED ONE Stop: 03/24/19 13:24 Succinylcholine Chloride (Quelicin) Confirm Administered Dose 200 mg .ROUTE .STK -MED ONE Stop: 03/26/19 13:07 Succinylcholine Chloride (Quelicin) Confirm Administered Dose 200 mg .ROUTE .STK -MED ONE Stop: 03/31/19 08:27 Tizanidine HCl (Zanaflex) 4 mg PO Q6H PRN PRN Reason: Muscle Spasm Last Admin: 03/26/19 09:49 Dose: 4 mg - Exam General: Alert, Oriented, Cooperative, Mild Distress Lungs: Clear to Auscultation, Normal Respiratory Effort Cardiovascular: Regular Rate, Regular Rhythm, No Murmurs GI/Abdominal Exam: Soft, Non-Tender, No Organomegaly, No Distention Extremities: Leg Pain (Surgical dressing in place) - Problem List Review Problem List Initiated/Reviewed/Updated: Yes - My Orders Last 24 Hours: My Active Orders 04/01/19 12:57 fentaNYL [Sublimaze] 50 mcg IVPUSH Q1H PRN 04/01/19 13:01 Pulse Oximetry Continuous Monitoring [OM.PC] Routine - Plan Plan:: ASSESSMENT AND PLAN - Large left lower extremity hematoma with compartment syndrome -stable over the past few days with no further evidence of active bleeding, doing well with PT and ambulating with use of a walker. Increased pain in the leg during the day yesterday, now improved. -Pain control -Postoperative care per Dr. Jackson Acute blood loss anemia-hemoglobin stable Recent left knee arthroplasty - performed at [facility]. -Outpatient follow-up Maintenance issues - - DVT prophylaxis - enoxaparin - GI prophylaxis - not indicated - Nutrition - regular diet Disposition - I would anticipate discharge home after the hospital stay
[2019-04-02] MEDS: tiZANidine 4 MG Tab PO PRN ×2 (11:22→18:19)
[2019-04-02] MEDS: traZODone 50 MG Tab PO SCH (21:05)
[2019-04-03] MEDS: tiZANidine 4 MG Tab PO PRN ×2 (00:27→11:56)
[2019-04-03] MEDS: Acetaminophen/oxyCODONE 325-5 MG Tab PO PRN ×4 (01:08→13:45)
[2019-04-03] MEDS: Pantoprazole 40 MG Tab.CR PO SCH (07:27)
[2019-04-03] MEDS: Ferrous Sulfate 325 MG Tab PO SCH (07:27)
[2019-04-03] MEDS: DULoxetine 30 MG Cap PO SCH (09:33)
[2019-04-03] MEDS: Tamsulosin 0.4 MG Cap.ER PO SCH (09:33)
--- NOTE | 2019-04-03 10:49 | PCM.SURGPN ---
- General Info Date of Service: 04/03/19 POD#: 3 Post-Op Diagnosis: Hematoma left lower leg, posterior compartment. Compartment Syndrome left lower leg Functional Status: Reports: Pain Controlled, Tolerating Diet, Ambulating, Urinating - Review of Systems General: Reports: No Symptoms Musculoskeletal: Reports: Leg Pain Skin: Reports: Other (blisters healing) Neurological: Reports: Other (sensation in toes slightly improved) - Patient Data Vitals - Most Recent: Last Vital Signs Temp 36.3 C 04/03/19 05:26 Pulse 86 04/03/19 07:30 Resp 18 04/03/19 07:30 BP 116/80 04/03/19 07:30 Pulse Ox 96 04/03/19 07:30 Weight - Most Recent: 90.7 kg I&O - Last 24 Hours: Intake & Output 04/02/19 04/03/19 04/03/19 22:59 06:59 14:59 Intake Total 960 Output Total 1250 400 Balance 960 -1250 -400 Yamil Results Last 24 Hrs: Microbiology 03/28/19 14:30 Aerobic Blood Culture - Final Blood - Arm, Right NO GROWTH AFTER 5 DAYS Anaerobic Blood Culture - Final NO GROWTH AFTER 5 DAYS 03/28/19 14:40 Aerobic Blood Culture - Final Blood - Arm, Right NO GROWTH AFTER 5 DAYS Anaerobic Blood Culture - Final NO GROWTH AFTER 5 DAYS Med Orders - Current: Current Medications Diphenhydramine HCl (Benadryl) 25 mg PO Q4H PRN PRN Reason: Itching Duloxetine HCl (Cymbalta) 60 mg PO DAILY [facility] Last Admin: 04/03/19 09:33 Dose: 60 mg Fentanyl (Sublimaze) 50 mcg IVPUSH Q1H PRN PRN Reason: Pain (severe 7-10) Last Admin: 04/02/19 02:55 Dose: 50 mcg Ferrous Sulfate (Ferrous Sulfate) 325 mg PO BIDMEALS JAY Last Admin: 04/03/19 07:27 Dose: 325 mg Magnesium Hydroxide (Milk Of Magnesia) 30 ml PO BID PRN PRN Reason: Constipation Oxycodone/Acetaminophen (Percocet 325-5 Mg) 2 tab PO Q4H PRN PRN Reason: Pain Last Admin: 04/03/19 09:38 Dose: 2 tab Pantoprazole Sodium (Protonix) 40 mg PO BIDAC JAY Last Admin: 04/03/19 07:27 Dose: 40 mg Senna/Docusate Sodium (Senna Plus) 1 tab PO BID [facility] Last Admin: 04/03/19 09:33 Dose: 1 tab Sodium Chloride (Saline Flush) 10 ml FLUSH ASDIRECTED PRN PRN Reason: Keep Vein Open Last Admin: 03/24/19 08:37 Dose: 10 ml Tamsulosin HCl (Flomax) 0.4 mg PO DAILY [facility] Last Admin: 04/03/19 09:33 Dose: 0.4 mg Tizanidine HCl (Zanaflex) 4 mg PO Q6H PRN PRN Reason: Spasms Last Admin: 04/03/19 00:27 Dose: 4 mg Trazodone HCl (Trazodone) 150 mg PO BEDTIME [facility] Last Admin: 04/02/19 21:05 Dose: 150 mg Discontinued Medications Bupivacaine HCl (Marcaine 0.5%) Confirm Administered Dose 50 ml .ROUTE .STK-MED ONE Stop: 03/31/19 06:39 Bupivacaine HCl/Epinephrine Bitart (Marcaine 0.5%/Epinephrine 1:200,000) Confirm Administered Dose 50 ml .ROUTE .STK-MED ONE Stop: 03/24/19 12:49 Cyclobenzaprine HCl (Flexeril) 10 mg PO Q8H PRN PRN Reason: Spasms Last Admin: 03/25/19 04:14 Dose: 10 mg Dexamethasone (Dexamethasone) Confirm Administered Dose 4 mg .ROUTE .STK-MED ONE Stop: 03/24/19 13:24 Dexamethasone (Dexamethasone) Confirm Administered Dose 4 mg .ROUTE .STK-MED ONE Stop: 03/26/19 13:07 Dexamethasone (Dexamethasone) Confirm Administered Dose 4 mg .ROUTE .STK-MED ONE Stop: 03/31/19 08:27 Enoxaparin Sodium (Lovenox) 100 mg SUBCUT Q12H [facility] Last Admin: 03/25/19 10:16 Dose: 100 mg Enoxaparin Sodium (Lovenox) 90 mg SUBCUT Q12H [facility] Last Admin: 03/26/19 08:25 Dose: 90 mg Fentanyl (Sublimaze) 50 mcg IVPUSH ONETIME ONE Stop: 03/24/19 11:53 Last Admin: 03/24/19 12:11 Dose: 50 mcg Fentanyl (Sublimaze) Confirm Administered Dose 250 mcg .ROUTE .STK-MED ONE Stop: 03/24/19 13:23 Fentanyl (Sublimaze) Confirm Administered Dose 250 mcg .ROUTE .STK-MED ONE Stop: 03/24/19 13:48 Fentanyl (Sublimaze) 50 mcg IVPUSH ONETIME ONE Stop: 03/24/19 14:30 Last Admin: 03/24/19 14:38 Dose: 50 mcg Fentanyl (Sublimaze) 50 mcg IVPUSH ONETIME ONE Stop: 03/24/19 14:49 Last Admin: 03/24/19 14:52 Dose: 50 mcg Fentanyl (Sublimaze) 50 mcg IVPUSH Q1H PRN PRN Reason: Pain (severe 7-10) Last Admin: 03/24/19 23:16 Dose: 50 mcg Fentanyl (Sublimaze) 50 mcg IVPUSH ONETIME ONE Stop: 03/26/19 10:56 Last Admin: 03/26/19 11:08 Dose: 50 mcg Fentanyl (Sublimaze) Confirm Administered Dose 250 mcg .ROUTE .STK-MED ONE Stop: 03/26/19 13:06 Fentanyl (Sublimaze) Confirm Administered Dose 250 mcg .ROUTE .STK-MED ONE Stop: 03/26/19 13:09 Fentanyl (Sublimaze) Confirm Administered Dose 250 mcg .ROUTE .STK-MED ONE Stop: 03/31/19 08:26 Fentanyl (Sublimaze) Confirm Administered Dose 100 mcg .ROUTE .STK-MED ONE Stop: 03/31/19 10:37 Fentanyl (Sublimaze) 50 mcg IVPUSH ONETIME ONE Stop: 04/01/19 12:30 Last Admin: 04/01/19 12:35 Dose: 50 mcg Glycopyrrolate (Robinul) Confirm Administered Dose 1 mg .ROUTE .STK-MED ONE Stop: 03/24/19 13:24 Glycopyrrolate (Robinul) Confirm Administered Dose 1 mg .ROUTE .STK-MED ONE Stop: 03/26/19 13:07 Hydromorphone HCl (Dilaudid) 1 mg IM ONETIME ONE Stop: 03/23/19 19:15 Last Admin: 03/23/19 19:20 Dose: 1 mg Hydromorphone HCl (Dilaudid) 2 mg PO Q8H ONE Stop: 03/23/19 19:45 Last Admin: 03/23/19 20:00 Dose: 2 mg Hydromorphone HCl (Dilaudid) 1 mg IVPUSH Q1H ONE Stop: 03/23/19 21:16 Last Admin: 03/23/19 21:21 Dose: 1 mg Hydromorphone HCl (Dilaudid) 1 mg IVPUSH Q1H PRN PRN Reason: Pain Last Admin: 03/28/19 11:40 Dose: 1 mg Hydromorphone HCl (Dilaudid) 4 mg PO Q3H PRN PRN Reason: Pain Last Admin: 03/24/19 21:00 Dose: 4 mg Hydromorphone HCl (Dilaudid) 0.5 mg IVPUSH Q2H PRN PRN Reason: PAIN Last Admin: 04/01/19 21:01 Dose: 0.5 mg Hydromorphone HCl (Dilaudid) 0.5 mg IVPUSH ONETIME ONE Stop: 04/01/19 12:05 Last Admin: 04/01/19 12:07 Dose: 0.5 mg Hydroxyzine HCl (Vistaril) 100 mg IM Q4H PRN PRN Reason: Pain (severe 7-10) Last Admin: 03/26/19 01:20 Dose: 100 mg Cefazolin Sodium/Dextrose 2 gm (/ Premix) 50 mls @ 100 mls/hr IV ONETIME ONE Stop: 03/24/19 13:59 Last Admin: 03/24/19 13:35 Dose: 100 mls/hr Acetaminophen 1,000 mg/ Premix 100 mls @ 200 mls/hr IV ONETIME ONE Stop: 03/24/19 15:18 Last Admin: 03/24/19 15:01 Dose: 200 mls/hr Cefazolin Sodium/Dextrose 1 gm (/ Premix) 50 mls @ 100 mls/hr IV Q8H [facility] Stop: 03/25/19 06:29 Last Admin: 03/25/19 06:23 Dose: 100 mls/hr Cefazolin Sodium/Dextrose 1 gm (/ Premix) 50 mls @ 100 mls/hr IV Q8HR [facility] Stop: 03/25/19 22:29 Last Admin: 03/25/19 22:58 Dose: 100 mls/hr Cefazolin Sodium/Dextrose 2 gm (/ Premix) 50 mls @ 100 mls/hr IV ONETIME ONE Stop: 03/26/19 11:29 Last Admin: 03/26/19 11:19 Dose: 100 mls/hr Cefazolin Sodium/Dextrose 1 gm (/ Premix) 50 mls @ 100 mls/hr IV Q8HR [facility] Stop: 03/27/19 14:29 Last Admin: 03/27/19 13:13 Dose: 100 mls/hr Sodium Chloride (Normal Saline) 1,000 mls @ 50 mls/hr IV ASDIRECTED [facility] Last Admin: 03/26/19 15:26 Dose: 50 mls/hr Cefazolin Sodium/Dextrose 2 gm (/ Premix) 50 mls @ 100 mls/hr IV ONETIME ONE Stop: 03/31/19 09:29 Last Admin: 03/31/19 12:09 Dose: Not Given Sodium Chloride (Normal Saline) Confirm Administered Dose 10 mls @ as directed .ROUTE .STK-MED ONE Stop: 03/31/19 10:26 Lactated Ringer's (Ringers, Lactated) Confirm Administered Dose 1,000 mls @ as directed .ROUTE .STK-MED ONE Stop: 03/31/19 10:26 Cefazolin Sodium/Dextrose 1 gm (/ Premix) 50 mls @ 100 mls/hr IV Q8H [facility] Stop: 04/03/19 18:29 Last Admin: 04/02/19 09:02 Dose: 100 mls/hr Sodium Chloride (Normal Saline) 1,000 mls @ 100 mls/hr IV ASDIRECTED [facility] Last Admin: 03/31/19 23:16 Dose: 100 mls/hr Lidocaine HCl (Xylocaine 2% Jelly) 10 ml MUCMEM ONETIME ONE Stop: 03/24/19 20:39 Last Admin: 03/24/19 21:02 Dose: 10 ml Neostigmine Methylsulfate (Neostigmine) Confirm Administered Dose 5 mg .ROUTE .STK-MED ONE Stop: 03/24/19 13:24 Neostigmine Methylsulfate (Neostigmine) Confirm Administered Dose 5 mg .ROUTE .STK-MED ONE Stop: 03/26/19 13:07 Ondansetron HCl (Zofran) Confirm Administered Dose 4 mg .ROUTE .STK-MED ONE Stop: 03/24/19 13:24 Ondansetron HCl (Zofran) Confirm Administered Dose 4 mg .ROUTE .STK-MED ONE Stop: 03/26/19 13:07 Ondansetron HCl (Zofran) Confirm Administered Dose 4 mg .ROUTE .STK-MED ONE Stop: 03/31/19 08:27 Oxycodone/Acetaminophen (Percocet 325-5 Mg) 1 - 2 tab PO Q6H PRN PRN Reason: Pain Last Admin: 03/25/19 08:14 Dose: 2 tab Povidone Iodine (Betadine 10% Soln) Confirm Administered Dose 1 ml .ROUTE .STK- MED ONE Stop: 03/31/19 06:39 Propofol (Diprivan 20 Ml) Confirm Administered Dose 200 mg .ROUTE .STK-MED ONE Stop: 03/24/19 13:24 Propofol (Diprivan 20 Ml) Confirm Administered Dose 200 mg .ROUTE .STK-MED ONE Stop: 03/26/19 13:07 Propofol (Diprivan 20 Ml) Confirm Administered Dose 200 mg .ROUTE .STK-MED ONE Stop: 03/31/19 08:27 Rocuronium [place] (Zemuron) Confirm Administered Dose 50 mg .ROUTE .STK-MED ONE Stop: 03/24/19 13:24 Rocuronium [place] (Zemuron) Confirm Administered Dose 50 mg .ROUTE .STK-MED ONE Stop: 03/26/19 13:07 Rocuronium [place] (Zemuron) Confirm Administered Dose 50 mg .ROUTE .STK-MED ONE Stop: 03/26/19 13:09 Rocuronium [place] (Zemuron) Confirm Administered Dose 50 mg .ROUTE .STK-MED ONE Stop: 03/31/19 08:27 Sodium Biphosphate/Sodium Phosphate (Fleet Enema) 133 ml RECTAL ONETIME ONE Stop: 03/26/19 19:42 Last Admin: 03/26/19 20:04 Dose: 133 ml Sodium Biphosphate/Sodium Phosphate (Fleet Enema) 133 ml RECTAL ONETIME ONE Stop: 03/31/19 21:23 Last Admin: 03/31/19 22:08 Dose: 133 ml Succinylcholine Chloride (Quelicin) Confirm Administered Dose 200 mg .ROUTE .STK -MED ONE Stop: 03/24/19 13:24 Succinylcholine Chloride (Quelicin) Confirm Administered Dose 200 mg .ROUTE .STK -MED ONE Stop: 03/26/19 13:07 Succinylcholine Chloride (Quelicin) Confirm Administered Dose 200 mg .ROUTE .STK -MED ONE Stop: 03/31/19 08:27 Tizanidine HCl (Zanaflex) 4 mg PO Q6H PRN PRN Reason: Muscle Spasm Last Admin: 03/26/19 09:49 Dose: 4 mg - Exam Wound/Incisions: No Drainage General: Alert, Oriented Extremities: Leg Pain, Other (swelling improved, moving ankle and toes) Skin: Warm, Dry, Other (blisters and incision healing) Neurological: Other (light touch to toes imprved slightly) Psy/Mental Status: Alert, Normal Affect, Normal Mood - Problem List & Annotations (1) Severe pain SNOMED Code(s): 53393498 Code(s): R52 - PAIN, UNSPECIFIED Status: Acute Current Visit: Yes (2) Nontraumatic compartment syndrome of left lower extremity SNOMED Code(s): 386157144 Code(s): M79.A22 - NONTRAUMATIC COMPARTMENT SYNDROME OF LEFT LOWER EXTREMITY Status: Acute Current Visit: Yes Annotation/Comment:: secondary to DVT (3) Spontaneous hematoma of lower leg SNOMED Code(s): 137789525 Code(s): R23.3 - SPONTANEOUS ECCHYMOSES Status: Acute Current Visit: Yes (4) Anemia, posthemorrhagic, acute SNOMED Code(s): 945439715 Code(s): D62 - ACUTE POSTHEMORRHAGIC ANEMIA Status: Acute Current Visit: Yes - Problem List Review Problem List Initiated/Reviewed/Updated: Yes - My Orders Last 24 Hours: Active Orders 24 hr Category Date Time Status Communication Order [RC] ASDIRECTED Care 04/02/19 13:03 Active Medication Orders Diphenhydramine HCl (Benadryl) 25 mg PO Q4H PRN PRN Reason: Itching Duloxetine HCl (Cymbalta) 60 mg PO DAILY JAY Last Admin: 04/03/19 09:33 Dose: 60 mg Admin: 04/02/19 09:01 Dose: 60 mg Admin: 04/01/19 08:18 Dose: 60 mg Admin: 03/31/19 11:47 Dose: 60 mg Admin: 03/30/19 08:31 Dose: 60 mg Admin: 03/29/19 09:15 Dose: 60 mg Admin: 03/28/19 09:29 Dose: 60 mg Admin: 03/27/19 09:23 Dose: 60 mg Admin: 03/26/19 08:24 Dose: 60 mg Admin: 03/25/19 08:10 Dose: 60 mg Admin: 03/24/19 11:49 Dose: Not Given Fentanyl (Sublimaze) 50 mcg IVPUSH Q1H PRN PRN Reason: Pain (severe 7-10) Last Admin: 04/02/19 02:55 Dose: 50 mcg Admin: 04/01/19 20:00 Dose: 50 mcg Admin: 04/01/19 13:12 Dose: 50 mcg Ferrous Sulfate (Ferrous Sulfate) 325 mg PO BIDMEALS [facility] Last Admin: 04/03/19 07:27 Dose: 325 mg Admin: 04/02/19 17:09 Dose: 325 mg Admin: 04/02/19 07:46 Dose: 325 mg Admin: 04/01/19 17:30 Dose: 325 mg Admin: 04/01/19 07:43 Dose: 325 mg Admin: 03/31/19 17:07 Dose: 325 mg Admin: 03/31/19 11:46 Dose: 325 mg Admin: 03/30/19 16:39 Dose: 325 mg Admin: 03/30/19 08:31 Dose: Not Given Admin: 03/29/19 16:21 Dose: Not Given Admin: 03/29/19 09:14 Dose: Not Given Admin: 03/28/19 17:45 Dose: Not Given Admin: 03/28/19 07:30 Dose: 325 mg Admin: 03/27/19 17:56 Dose: 325 mg Magnesium Hydroxide (Milk Of Magnesia) 30 ml PO BID PRN PRN Reason: Constipation Oxycodone/Acetaminophen (Percocet 325-5 Mg) 2 tab PO Q4H PRN PRN Reason: Pain Last Admin: 04/03/19 09:38 Dose: 2 tab Admin: 04/03/19 05:23 Dose: 2 tab Admin: 04/03/19 01:08 Dose: 2 tab Admin: 04/02/19 21:04 Dose: 2 tab Admin: 04/02/19 17:09 Dose: 2 tab Admin: 04/02/19 12:10 Dose: 2 tab Admin: 04/02/19 07:47 Dose: 2 tab Admin: 04/02/19 03:05 Dose: 2 tab Admin: 04/01/19 23:05 Dose: 2 tab Admin: 04/01/19 19:05 Dose: 2 tab Admin: 04/01/19 15:12 Dose: 2 tab Admin: 04/01/19 10:02 Dose: 2 tab Admin: 04/01/19 05:27 Dose: 2 tab Admin: 04/01/19 01:27 Dose: 2 tab Admin: 03/31/19 21:26 Dose: 2 tab Admin: 03/31/19 17:24 Dose: 2 tab Admin: 03/31/19 13:05 Dose: 2 tab Admin: 03/31/19 08:50 Dose: 2 tab Admin: 03/30/19 21:25 Dose: 2 tab Admin: 03/30/19 17:17 Dose: 2 tab Admin: 03/30/19 13:02 Dose: 2 tab Admin: 03/30/19 09:05 Dose: 1 tab Admin: 03/30/19 07:29 Dose: 1 tab Admin: 03/29/19 21:19 Dose: 2 tab Admin: 03/29/19 16:24 Dose: 2 tab Admin: 03/29/19 12:36 Dose: 2 tab Admin: 03/29/19 09:13 Dose: 2 tab Admin: 03/29/19 05:32 Dose: 2 tab Admin: 03/28/19 21:52 Dose: 2 tab Admin: 03/28/19 17:50 Dose: 2 tab Admin: 03/28/19 14:02 Dose: 2 tab Admin: 03/28/19 09:29 Dose: 2 tab Admin: 03/28/19 05:11 Dose: 2 tab Admin: 03/28/19 00:37 Dose: 2 tab Admin: 03/27/19 19:27 Dose: 2 tab Admin: 03/27/19 15:29 Dose: 2 tab Admin: 03/27/19 11:37 Dose: 2 tab Admin: 03/27/19 07:35 Dose: 2 tab Admin: 03/27/19 03:01 Dose: 2 tab Admin: 03/26/19 20:04 Dose: 2 tab Admin: 03/26/19 08:22 Dose: 2 tab Admin: 03/26/19 01:48 Dose: 2 tab Admin: 03/25/19 21:58 Dose: 2 tab Admin: 03/25/19 18:00 Dose: 2 tab Admin: 03/25/19 13:16 Dose: 2 tab Pantoprazole Sodium (Protonix) 40 mg PO BIDAC JAY Last Admin: 04/03/19 07:27 Dose: 40 mg Admin: 04/02/19 17:09 Dose: 40 mg Admin: 04/02/19 07:45 Dose: 40 mg Admin: 04/01/19 17:30 Dose: 40 mg Admin: 04/01/19 07:42 Dose: 40 mg Admin: 03/31/19 17:07 Dose: 40 mg Admin: 03/31/19 07:49 Dose: 40 mg Admin: 03/30/19 16:39 Dose: 40 mg Admin: 03/30/19 07:29 Dose: 40 mg Admin: 03/29/19 16:25 Dose: 40 mg Admin: 03/29/19 09:14 Dose: 40 mg Admin: 03/28/19 17:46 Dose: 40 mg Admin: 03/28/19 07:30 Dose: 40 mg Admin: 03/27/19 15:29 Dose: 40 mg Admin: 03/27/19 09:23 Dose: 40 mg Admin: 03/26/19 16:49 Dose: 40 mg Admin: 03/26/19 08:23 Dose: 40 mg Admin: 03/25/19 18:00 Dose: 40 mg Admin: 03/25/19 08:10 Dose: 40 mg Admin: 03/24/19 17:08 Dose: 40 mg Admin: 03/24/19 07:28 Dose: 40 mg Senna/Docusate Sodium (Senna Plus) 1 tab PO BID JAY Last Admin: 04/03/19 09:33 Dose: 1 tab Admin: 04/02/19 21:05 Dose: 1 tab Admin: 04/02/19 09:00 Dose: 1 tab Admin: 04/01/19 20:13 Dose: 1 tab Admin: 04/01/19 08:18 Dose: 1 tab Admin: 03/31/19 21:01 Dose: 1 tab Admin: 03/31/19 11:46 Dose: 1 tab Admin: 03/30/19 21:25 Dose: 1 tab Admin: 03/30/19 08:31 Dose: 1 tab Admin: 03/29/19 21:19 Dose: 1 tab Admin: 03/29/19 09:15 Dose: 1 tab Admin: 03/28/19 21:21 Dose: 1 tab Admin: 03/28/19 09:29 Dose: 1 tab Admin: 03/27/19 20:27 Dose: 1 tab Admin: 03/27/19 09:23 Dose: 1 tab Admin: 03/26/19 20:04 Dose: 1 tab Admin: 03/26/19 08:24 Dose: 1 tab Admin: 03/25/19 21:58 Dose: 1 tab Admin: 03/25/19 11:40 Dose: 1 tab Sodium Chloride (Saline Flush) 10 ml FLUSH ASDIRECTED PRN PRN Reason: Keep Vein Open Last Admin: 03/24/19 08:37 Dose: 10 ml Admin: 03/24/19 00:43 Dose: 10 ml Admin: 03/24/19 00:00 Dose: 10 ml Tamsulosin HCl (Flomax) 0.4 mg PO DAILY JAY Last Admin: 04/03/19 09:33 Dose: 0.4 mg Admin: 04/02/19 09:01 Dose: 0.4 mg Admin: 04/01/19 08:18 Dose: 0.4 mg Admin: 03/31/19 11:46 Dose: 0.4 mg Admin: 03/30/19 08:31 Dose: 0.4 mg Admin: 03/29/19 09:14 Dose: 0.4 mg Admin: 03/28/19 09:29 Dose: 0.4 mg Admin: 03/27/19 09:23 Dose: 0.4 mg Admin: 03/26/19 08:24 Dose: 0.4 mg Admin: 03/25/19 08:10 Dose: 0.4 mg Admin: 03/24/19 11:49 Dose: Not Given Tizanidine HCl (Zanaflex) 4 mg PO Q6H PRN PRN Reason: Spasms Last Admin: 04/03/19 00:27 Dose: 4 mg Admin: 04/02/19 18:19 Dose: 4 mg Admin: 04/02/19 11:22 Dose: 4 mg Admin: 04/01/19 20:13 Dose: 4 mg Admin: 04/01/19 11:28 Dose: 4 mg Trazodone HCl (Trazodone) 150 mg PO BEDTIME [facility] Last Admin: 04/02/19 21:05 Dose: 150 mg Admin: 04/01/19 20:14 Dose: 150 mg Admin: 03/31/19 21:01 Dose: 150 mg Admin: 03/30/19 21:25 Dose: 150 mg Admin: 03/29/19 21:19 Dose: 150 mg Admin: 03/28/19 21:21 Dose: 150 mg Admin: 03/27/19 20:27 Dose: 150 mg Admin: 03/26/19 20:04 Dose: 150 mg Admin: 03/25/19 21:58 Dose: 150 mg Admin: 03/24/19 21:01 Dose: 150 mg Admin: 03/24/19 01:03 Dose: 150 mg - Assessment Assessment (Free Text/Narrative):: Pain improving, on po meds now, working on weight bearing on leg. - Plan Plan (Free Text/Narrative):: Ok to discharge to home. Continue elevation and compression. Light dressing to incision and blisters as needed. Progress activity and weight bearing as tolerated. Recommend outpatient PT. Follow up in 2 weeks for suture removal.
--- NOTE | 2019-04-03 11:40 | PCM.DCSUM1 ---
Discharge Summary - Hospital Course Brief History: 68 yr old male who had a left knee arthroplasty 10 days prior to presentation who came to the ER with acute left lower leg pain and swelling. He was admitted for management of DVT discovered with US imaging. Diagnosis: Stroke: No - Discharge Data Discharge Date: 04/03/19 Discharge Disposition: Home, Self-Care 01 Condition: Good - Discharge Diagnosis/Problem(s) (1) Traumatic compartment syndrome of left lower extremity, initial encounter SNOMED Code(s): 782193354 ICD Code: T79.A22A - TRAUMATIC COMPARTMENT SYNDROME OF LEFT LOWER EXTREMITY, INIT Status: Acute Current Visit: Yes (2) Spontaneous hematoma of lower leg SNOMED Code(s): 470856827 ICD Code: R23.3 - SPONTANEOUS ECCHYMOSES Status: Acute Current Visit: Yes (3) DVT (deep venous thrombosis) SNOMED Code(s): 940206906 ICD Code: I82.409 - ACUTE EMBOLISM AND THOMBOS UNSP DEEP VN UNSP LOWER EXTREMITY Status: Acute Current Visit: Yes Qualifiers: DVT location: lower extremity Affected thrombotic vein of extremity: unspecified lower extremity distal vein - Patient Summary/Data Operative Procedure(s) Performed: 03/24 - 3 compartment fasciotomy with evacuation of hematoma. 03/26 - evacuation of hematoma of left lower leg and placement of wound VAC. 03/31 - removal of wound VAC and closure of fasciotomy incisions Consults: Consultations 03/24/19 13:53 Consult to Physician [CONS] Urgent Consulting Provider: Barrett Jackson Courtesy Call Completed to Consulting Physician: Yes Reason for Consult: left leg compartment syndrome Person Notified: DOWEL POINTER Date Notified: 03/24/19 03/24/19 15:11 Consult to Physical Therapy [PT Evaluation and Treatment] [CONS] Routine Please Evaluate and Treat. PT Reason for Consult: Post op Ortho Surgery Pending Discharge: Yes Discharge Disposition: Home Special Instructions: partial weight bearing on left leg This query below is only for informational purposes and is not editable. Admission Diagnosis/Problem: Compartment syndrome 03/25/19 14:23 Consult to Physical Therapy [PT Evaluation and Treatment] [CONS] Routine Please Evaluate and Treat. PT Reason for Consult: Ambulation Special Instructions: Please instruct on crutches, TTWB on left This query below is only for informational purposes and is not editable. Admission Diagnosis/Problem: Compartment syndrome 03/31/19 12:44 Consult to Occupational Therapy [OT Evaluation and Treatment] [CONS] Routine Please Evaluate and Treat. OT Reason for Consult: ADL's Pending Discharge: Yes Discharge Disposition: Home Special Instructions: AdLs and adaptive devices This query below is only for informational purposes and is not editable. Admission Diagnosis/Problem: Compartment syndrome 03/31/19 12:45 Consult to Physical Therapy [PT Evaluation and Treatment] [CONS] Routine Please Evaluate and Treat. PT Reason for Consult: Post op Ortho Surgery Pending Discharge: Yes Discharge Disposition: Home Special Instructions: Crutches, TTWB on left This query below is only for informational purposes and is not editable. Admission Diagnosis/Problem: Compartment syndrome Recommended Follow-up Testing/Procedures: Suture removal in 2 weeks Hospital Course: Nestor presented to the emergency room on March 23 with severe left lower extremity pain that started about 10 days following a left knee arthroplasty surgery. Workup in the emergency room included an ultrasound of the left leg which did reveal a DVT of both the popliteal and posterior tibial veins on the left side. The patient received subcutaneous Hutchison apparent and was admitted to the hospital for further management. The morning after admission his pain was severe and the leg was very tense. The foot was cool and pulses were difficult to palpate. There was concern for developing compartment syndrome so the orthopedic team was consulted. He was taken to the operating room for a 4 compartment fasciotomy and drainage of a presumed posterior compartment hematoma. This was completed on March 24 with evacuation of a very large hematoma. Initially the patient did well for the first 24 hours or so but then had progression and worsening of his pain involving the left leg. He was taken back to the operating room on March 26 and had additional fasciotomy performed with additional drainage of a posterior compartment hematoma. A wound VAC was placed at that time. Following this his pain had improved but he still continued to have severe pain. An ultrasound of the veins on the left lower extremity was completed on March 27 and there is no evidence for residual deep vein thrombosis so systemic anticoagulation was discontinued altogether. With persistent bleeding he did require a transfusion of 2 units of packed red blood cells. Over the next several days the patient did make progress but was in a fair amount of pain and had it great deal of difficulty ambulating. On March 31 the patient went back to the operating room and had a closure of the fasciotomies. The wound VAC was removed at that time. Since that time he has made much better progress. His pain is been controlled using only oral medications. He has been up and walking with only a minimal increase in his pain and no severe pain. His hemoglobin has remained stable. His vital signs have been stable. He feels comfortable going home at this time. The plan is for him to go to his brother's house and he will be receiving outpatient physical therapy to recover from both his knee arthroplasty and more recently his hematoma evacuation and fasciotomy. - Patient Instructions Diet: Regular Diet as Tolerated Activity: As Tolerated Driving: Do Not Drive (while taking pain pills ) Showering/Bathing: May Shower Wound/Incision Care: Keep Operative Site/Wound Site Clean and Dry Notify Provider of: Fever, Increased Pain, Swelling and Redness, Drainage, Nausea and/or Vomiting Other/Special Instructions: 1. Follow up with provider in [place] within one week - follow up hospital stay for hematoma and compartment syndrome of left leg. 2. Follow up with Dr Jackson in 2 weeks for suture removal. - Discharge Plan *PRESCRIPTION DRUG MONITORING PROGRAM REVIEWED*: Not Applicable *COPY OF PRESCRIPTION DRUG MONITORING REPORT IN PATIENT SUNG: Not Applicable Prescriptions/Med Rec: Acetaminophen/oxyCODONE [Percocet 325-10 MG] 1 tab PO Q6H PRN #30 tab PRN Reason: Pain (Moderate 4-6) tiZANidine [Zanaflex] 4 mg PO Q6H PRN #30 tablet PRN Reason: Spasms Home Medications: Home Meds Aspirin [Ecotrin EC] 162 mg PO DAILY 03/23/19 [History] Calcium Carbonate/Vitamin D3 [Calcium 500-Vit D3 400 Chew Tb] 2 tab PO DAILY [History] Celecoxib [CeleBREX] 200 mg PO BID 03/23/19 [History] DULoxetine [Cymbalta] 60 mg PO DAILY 03/23/19 [History] Fluticasone Propionate [Flonase] 2 spray NS DAILY 03/23/19 [History] Omeprazole 40 mg PO BIDAC 03/23/19 [History] Tamsulosin [Flomax] 0.4 mg PO DAILY 03/23/19 [History] amLODIPine [Norvasc] 10 mg PO DAILY 03/23/19 [History] traZODone 150 mg PO BEDTIME 03/23/19 [History] Acetaminophen/oxyCODONE [Percocet 325-10 MG] 1 tab PO Q6H PRN #30 tab 04/03/19 [ Rx] tiZANidine [Zanaflex] 4 mg PO Q6H PRN #30 tablet 04/03/19 [Rx] Oxygen Therapy Mode: Room Air Patient Handouts: Fasciotomy for Compartment Syndrome, Care After Referrals: Barrett Jackson MD [Physician] - 04/18/19 2:15 pm - Discharge Summary/Plan Comment DC Time >30 min.: No - Patient Data Vitals - Most Recent: Last Vital Signs Temp 36.3 C 04/03/19 05:26 Pulse 86 04/03/19 07:30 Resp 18 04/03/19 07:30 BP 116/80 04/03/19 07:30 Pulse Ox 96 04/03/19 07:30 Weight - Most Recent: 90.7 kg I&O - Last 24 hours: Intake & Output 04/02/19 04/03/19 04/03/19 22:59 06:59 14:59 Intake Total 960 400 Output Total 1250 400 Balance 960 -1250 0 AMY Results - Last 24 hrs: Microbiology 03/28/19 14:30 Aerobic Blood Culture - Final Blood - Arm, Right NO GROWTH AFTER 5 DAYS Anaerobic Blood Culture - Final NO GROWTH AFTER 5 DAYS 03/28/19 14:40 Aerobic Blood Culture - Final Blood - Arm, Right NO GROWTH AFTER 5 DAYS Anaerobic Blood Culture - Final NO GROWTH AFTER 5 DAYS Med Orders - Current: Current Medications Diphenhydramine HCl (Benadryl) 25 mg PO Q4H PRN PRN Reason: Itching Duloxetine HCl (Cymbalta) 60 mg PO DAILY [facility] Last Admin: 04/03/19 09:33 Dose: 60 mg Fentanyl (Sublimaze) 50 mcg IVPUSH Q1H PRN PRN Reason: Pain (severe 7-10) Last Admin: 04/02/19 02:55 Dose: 50 mcg Ferrous Sulfate (Ferrous Sulfate) 325 mg PO BIDMEALS [facility] Last Admin: 04/03/19 07:27 Dose: 325 mg Magnesium Hydroxide (Milk Of Magnesia) 30 ml PO BID PRN PRN Reason: Constipation Oxycodone/Acetaminophen (Percocet 325-5 Mg) 2 tab PO Q4H PRN PRN Reason: Pain Last Admin: 04/03/19 09:38 Dose: 2 tab Pantoprazole Sodium (Protonix) 40 mg PO BIDAC [facility] Last Admin: 04/03/19 07:27 Dose: 40 mg Senna/Docusate Sodium (Senna Plus) 1 tab PO BID [facility] Last Admin: 04/03/19 09:33 Dose: 1 tab Sodium Chloride (Saline Flush) 10 ml FLUSH ASDIRECTED PRN PRN Reason: Keep Vein Open Last Admin: 03/24/19 08:37 Dose: 10 ml Tamsulosin HCl (Flomax) 0.4 mg PO DAILY [facility] Last Admin: 04/03/19 09:33 Dose: 0.4 mg Tizanidine HCl (Zanaflex) 4 mg PO Q6H PRN PRN Reason: Spasms Last Admin: 04/03/19 00:27 Dose: 4 mg Trazodone HCl (Trazodone) 150 mg PO BEDTIME [facility] Last Admin: 04/02/19 21:05 Dose: 150 mg Discontinued Medications Bupivacaine HCl (Marcaine 0.5%) Confirm Administered Dose 50 ml .ROUTE .STK-MED ONE Stop: 03/31/19 06:39 Bupivacaine HCl/Epinephrine Bitart (Marcaine 0.5%/Epinephrine 1:200,000) Confirm Administered Dose 50 ml .ROUTE .STK-MED ONE Stop: 03/24/19 12:49 Cyclobenzaprine HCl (Flexeril) 10 mg PO Q8H PRN PRN Reason: Spasms Last Admin: 03/25/19 04:14 Dose: 10 mg Dexamethasone (Dexamethasone) Confirm Administered Dose 4 mg .ROUTE .STK-MED ONE Stop: 03/24/19 13:24 Dexamethasone (Dexamethasone) Confirm Administered Dose 4 mg .ROUTE .STK-MED ONE Stop: 03/26/19 13:07 Dexamethasone (Dexamethasone) Confirm Administered Dose 4 mg .ROUTE .STK-MED ONE Stop: 03/31/19 08:27 Enoxaparin Sodium (Lovenox) 100 mg SUBCUT Q12H [facility] Last Admin: 03/25/19 10:16 Dose: 100 mg Enoxaparin Sodium (Lovenox) 90 mg SUBCUT Q12H [facility] Last Admin: 03/26/19 08:25 Dose: 90 mg Fentanyl (Sublimaze) 50 mcg IVPUSH ONETIME ONE Stop: 03/24/19 11:53 Last Admin: 03/24/19 12:11 Dose: 50 mcg Fentanyl (Sublimaze) Confirm Administered Dose 250 mcg .ROUTE .STK-MED ONE Stop: 03/24/19 13:23 Fentanyl (Sublimaze) Confirm Administered Dose 250 mcg .ROUTE .STK-MED ONE Stop: 03/24/19 13:48 Fentanyl (Sublimaze) 50 mcg IVPUSH ONETIME ONE Stop: 03/24/19 14:30 Last Admin: 03/24/19 14:38 Dose: 50 mcg Fentanyl (Sublimaze) 50 mcg IVPUSH ONETIME ONE Stop: 03/24/19 14:49 Last Admin: 03/24/19 14:52 Dose: 50 mcg Fentanyl (Sublimaze) 50 mcg IVPUSH Q1H PRN PRN Reason: Pain (severe 7-10) Last Admin: 03/24/19 23:16 Dose: 50 mcg Fentanyl (Sublimaze) 50 mcg IVPUSH ONETIME ONE Stop: 03/26/19 10:56 Last Admin: 03/26/19 11:08 Dose: 50 mcg Fentanyl (Sublimaze) Confirm Administered Dose 250 mcg .ROUTE .STK-MED ONE Stop: 03/26/19 13:06 Fentanyl (Sublimaze) Confirm Administered Dose 250 mcg .ROUTE .STK-MED ONE Stop: 03/26/19 13:09 Fentanyl (Sublimaze) Confirm Administered Dose 250 mcg .ROUTE .STK-MED ONE Stop: 03/31/19 08:26 Fentanyl (Sublimaze) Confirm Administered Dose 100 mcg .ROUTE .STK-MED ONE Stop: 03/31/19 10:37 Fentanyl (Sublimaze) 50 mcg IVPUSH ONETIME ONE Stop: 04/01/19 12:30 Last Admin: 04/01/19 12:35 Dose: 50 mcg Glycopyrrolate (Robinul) Confirm Administered Dose 1 mg .ROUTE .STK-MED ONE Stop: 03/24/19 13:24 Glycopyrrolate (Robinul) Confirm Administered Dose 1 mg .ROUTE .STK-MED ONE Stop: 03/26/19 13:07 Hydromorphone HCl (Dilaudid) 1 mg IM ONETIME ONE Stop: 03/23/19 19:15 Last Admin: 03/23/19 19:20 Dose: 1 mg Hydromorphone HCl (Dilaudid) 2 mg PO Q8H ONE Stop: 03/23/19 19:45 Last Admin: 03/23/19 20:00 Dose: 2 mg Hydromorphone HCl (Dilaudid) 1 mg IVPUSH Q1H ONE Stop: 03/23/19 21:16 Last Admin: 03/23/19 21:21 Dose: 1 mg Hydromorphone HCl (Dilaudid) 1 mg IVPUSH Q1H PRN PRN Reason: Pain Last Admin: 03/28/19 11:40 Dose: 1 mg Hydromorphone HCl (Dilaudid) 4 mg PO Q3H PRN PRN Reason: Pain Last Admin: 03/24/19 21:00 Dose: 4 mg Hydromorphone HCl (Dilaudid) 0.5 mg IVPUSH Q2H PRN PRN Reason: PAIN Last Admin: 04/01/19 21:01 Dose: 0.5 mg Hydromorphone HCl (Dilaudid) 0.5 mg IVPUSH ONETIME ONE Stop: 04/01/19 12:05 Last Admin: 04/01/19 12:07 Dose: 0.5 mg Hydroxyzine HCl (Vistaril) 100 mg IM Q4H PRN PRN Reason: Pain (severe 7-10) Last Admin: 03/26/19 01:20 Dose: 100 mg Cefazolin Sodium/Dextrose 2 gm (/ Premix) 50 mls @ 100 mls/hr IV ONETIME ONE Stop: 03/24/19 13:59 Last Admin: 03/24/19 13:35 Dose: 100 mls/hr Acetaminophen 1,000 mg/ Premix 100 mls @ 200 mls/hr IV ONETIME ONE Stop: 03/24/19 15:18 Last Admin: 03/24/19 15:01 Dose: 200 mls/hr Cefazolin Sodium/Dextrose 1 gm (/ Premix) 50 mls @ 100 mls/hr IV Q8H [facility] Stop: 03/25/19 06:29 Last Admin: 03/25/19 06:23 Dose: 100 mls/hr Cefazolin Sodium/Dextrose 1 gm (/ Premix) 50 mls @ 100 mls/hr IV Q8HR [facility] Stop: 03/25/19 22:29 Last Admin: 03/25/19 22:58 Dose: 100 mls/hr Cefazolin Sodium/Dextrose 2 gm (/ Premix) 50 mls @ 100 mls/hr IV ONETIME ONE Stop: 03/26/19 11:29 Last Admin: 03/26/19 11:19 Dose: 100 mls/hr Cefazolin Sodium/Dextrose 1 gm (/ Premix) 50 mls @ 100 mls/hr IV Q8HR [facility] Stop: 03/27/19 14:29 Last Admin: 03/27/19 13:13 Dose: 100 mls/hr Sodium Chloride (Normal Saline) 1,000 mls @ 50 mls/hr IV ASDIRECTED [facility] Last Admin: 03/26/19 15:26 Dose: 50 mls/hr Cefazolin Sodium/Dextrose 2 gm (/ Premix) 50 mls @ 100 mls/hr IV ONETIME ONE Stop: 03/31/19 09:29 Last Admin: 03/31/19 12:09 Dose: Not Given Sodium Chloride (Normal Saline) Confirm Administered Dose 10 mls @ as directed .ROUTE .STK-MED ONE Stop: 03/31/19 10:26 Lactated Ringer's (Ringers, Lactated) Confirm Administered Dose 1,000 mls @ as directed .ROUTE .STK-MED ONE Stop: 03/31/19 10:26 Cefazolin Sodium/Dextrose 1 gm (/ Premix) 50 mls @ 100 mls/hr IV Q8H [facility] Stop: 04/03/19 18:29 Last Admin: 04/02/19 09:02 Dose: 100 mls/hr Sodium Chloride (Normal Saline) 1,000 mls @ 100 mls/hr IV ASDIRECTED [facility] Last Admin: 03/31/19 23:16 Dose: 100 mls/hr Lidocaine HCl (Xylocaine 2% Jelly) 10 ml MUCMEM ONETIME ONE Stop: 03/24/19 20:39 Last Admin: 03/24/19 21:02 Dose: 10 ml Neostigmine Methylsulfate (Neostigmine) Confirm Administered Dose 5 mg .ROUTE .STK-MED ONE Stop: 03/24/19 13:24 Neostigmine Methylsulfate (Neostigmine) Confirm Administered Dose 5 mg .ROUTE .STK-MED ONE Stop: 03/26/19 13:07 Ondansetron HCl (Zofran) Confirm Administered Dose 4 mg .ROUTE .STK-MED ONE Stop: 03/24/19 13:24 Ondansetron HCl (Zofran) Confirm Administered Dose 4 mg .ROUTE .STK-MED ONE Stop: 03/26/19 13:07 Ondansetron HCl (Zofran) Confirm Administered Dose 4 mg .ROUTE .STK-MED ONE Stop: 03/31/19 08:27 Oxycodone/Acetaminophen (Percocet 325-5 Mg) 1 - 2 tab PO Q6H PRN PRN Reason: Pain Last Admin: 03/25/19 08:14 Dose: 2 tab Povidone Iodine (Betadine 10% Soln) Confirm Administered Dose 1 ml .ROUTE .STK- MED ONE Stop: 03/31/19 06:39 Propofol (Diprivan 20 Ml) Confirm Administered Dose 200 mg .ROUTE .STK-MED ONE Stop: 03/24/19 13:24 Propofol (Diprivan 20 Ml) Confirm Administered Dose 200 mg .ROUTE .STK-MED ONE Stop: 03/26/19 13:07 Propofol (Diprivan 20 Ml) Confirm Administered Dose 200 mg .ROUTE .STK-MED ONE Stop: 03/31/19 08:27 Rocuronium [place] (Zemuron) Confirm Administered Dose 50 mg .ROUTE .STK-MED ONE Stop: 03/24/19 13:24 Rocuronium [place] (Zemuron) Confirm Administered Dose 50 mg .ROUTE .STK-MED ONE Stop: 03/26/19 13:07 Rocuronium [place] (Zemuron) Confirm Administered Dose 50 mg .ROUTE .STK-MED ONE Stop: 03/26/19 13:09 Rocuronium [place] (Zemuron) Confirm Administered Dose 50 mg .ROUTE .STK-MED ONE Stop: 03/31/19 08:27 Sodium Biphosphate/Sodium Phosphate (Fleet Enema) 133 ml RECTAL ONETIME ONE Stop: 03/26/19 19:42 Last Admin: 03/26/19 20:04 Dose: 133 ml Sodium Biphosphate/Sodium Phosphate (Fleet Enema) 133 ml RECTAL ONETIME ONE Stop: 03/31/19 21:23 Last Admin: 03/31/19 22:08 Dose: 133 ml Succinylcholine Chloride (Quelicin) Confirm Administered Dose 200 mg .ROUTE .STK -MED ONE Stop: 03/24/19 13:24 Succinylcholine Chloride (Quelicin) Confirm Administered Dose 200 mg .ROUTE .STK -MED ONE Stop: 03/26/19 13:07 Succinylcholine Chloride (Quelicin) Confirm Administered Dose 200 mg .ROUTE .STK -MED ONE Stop: 03/31/19 08:27 Tizanidine HCl (Zanaflex) 4 mg PO Q6H PRN PRN Reason: Muscle Spasm Last Admin: 03/26/19 09:49 Dose: 4 mg - Exam Quality Assessment: Denies: Supplemental Oxygen General: Reports: Alert, Oriented, Cooperative, No Acute Distress Lungs: Reports: Normal Respiratory Effort GI/Abdominal Exam: Soft, No Distention Extremities: No Pedal Edema, Other (left lower leg wrapped with alla wrap ) Skin: Reports: Warm, Dry, Other (scabbed circular lesion left foot near toes on dorsal surface ) Psy/Mental Status: Reports: Alert, Normal Affect
== END 2019-04-03 14:45 | disposition home or self-care (01) | DRG 982 ==
LOC: JP.ED 18:48 → JP.MS 21:49 → OBSVTOIN 03-24 14:13
PROVIDERS: ADMIT Family Medicine; ATTEND Internal Medicine
PROC: 0KNT0ZZ Release Left Lower Leg Muscle, Open Approach (ICD-10-PCS; principal; 2019-03-24)
PROC: 0KNT0ZZ Release Left Lower Leg Muscle, Open Approach (ICD-10-PCS; 2019-03-24)
PROC: 0KNT0ZZ Release Left Lower Leg Muscle, Open Approach (ICD-10-PCS; 2019-03-24)
PROC: 30233N1 Transfusion of Nonautologous Red Blood Cells into Peripheral Vein, Percutaneous Approach (ICD-10-PCS; 2019-03-27)
PROC: 0JCP0ZZ Extirpation of Matter from Left Lower Leg Subcutaneous Tissue and Fascia, Open Approach (ICD-10-PCS; 2019-03-31)
DX: I82.402 Acute embolism and thrombosis of unspecified deep veins of left lower extremity (principal); M79.89 Other specified soft tissue disorders; M25.562 Pain in left knee; T79.A22A Traumatic compartment syndrome of left lower extremity, initial encounter; I82.442 Acute embolism and thrombosis of left tibial vein; D62 Acute posthemorrhagic anemia; Z87.442 Personal history of urinary calculi; I82.432 Acute embolism and thrombosis of left popliteal vein; R23.3 Spontaneous ecchymoses; Z96.619 Presence of unspecified artificial shoulder joint; Z96.652 Presence of left artificial knee joint; Z96.611 Presence of right artificial shoulder joint; I10 Essential (primary) hypertension; K21.9 Gastro-esophageal reflux disease without esophagitis; F32.9 Major depressive disorder, single episode, unspecified; Z90.49 Acquired absence of other specified parts of digestive tract; Z98.890 Other specified postprocedural states; Z79.82 Long term (current) use of aspirin; Z79.899 Other long term (current) drug therapy; Z87.891 Personal history of nicotine dependence; Z85.118 Personal history of other malignant neoplasm of bronchus and lung; Z90.2 Acquired absence of lung [part of]
CPT/HCPCS: 36415; 80053; 85025; 93971; 96372 ×3; 96374; 96375; 99284; 99285; A9270 ×6; G0378 ×2; J0330; J0690; J1100; J1170 ×13; J1650 ×2; J2405; J2704; J2710; J3010 ×2; J3490; 36430; 51702; 51798; 80048; 85018; 85027; 85610; 85730; 86850; 86900; 86901; 86920; 86922; 87040; 87070; 87075; 87205; 94762; 97110-GP; 97116-GP; 97162-GP; 97530-GP; 97535-GP; 97605; J0131; J3410; J7030; J7120; P9016

== ENCOUNTER 2019-11-03 16:09 | Emergency (ER) | payer MEDICARE ==
--- NOTE | 2019-11-03 16:41 | EDM.PDOC ---
ED HPI GENERAL MEDICAL PROBLEM - General Chief Complaint: Respiratory Problem Stated Complaint: SOB, CHEST PAIN Time Seen by Provider: 11/03/19 17:25 Source of Information: Reports: Patient, Old Records, RN History Limitations: Reports: No Limitations - History of Present Illness INITIAL COMMENTS - FREE TEXT/NARRATIVE: 69 yo male here with a Hx of lung CA still followed by oncology presented to the clinic today for increasing pleuritic type lung pain and was referred to the ER. He has been taking naproxen and acetaminophen without relief. No fever or cough. No unilateral calf pain. Pain and breathing worse with lying down. Had a recent chest CT scan here and is awaiting for his prior outside this facility CT to arrive here for comparison before his last one is officially read. After this reading he will be seeing his oncologist again. There has not been diaphoresis or nausea. Onset: Gradual Duration: Week(s):, Getting Worse, Waxing/Waning Location: Reports: Chest Quality: Reports: Sharp, Stabbing Severity: Moderate Improves with: Reports: Other (light breathing) Worsens with: Reports: Other (heavy breathing) Context: Reports: Other (see HPI) Associated Symptoms: Reports: Chest Pain (sharp, pleuritic). Denies: Cough, Fever/Chills, Nausea/Vomiting, Shortness of Breath, Syncope Treatments SEALER SANDER: Reports: NSAIDS - Related Data Allergies Allergy/AdvReac Type Severity Reaction Status Date / Time No Known Allergies Allergy Verified 11/03/19 16:39 Home Meds: Home Meds Aspirin [Ecotrin EC] 162 mg PO DAILY 03/23/19 [History] Fluticasone Propionate [Flonase] 2 spray NS DAILY 03/23/19 [History] Omeprazole 40 mg PO BIDAC 03/23/19 [History] Tamsulosin [Flomax] 0.4 mg PO DAILY 03/23/19 [History] amLODIPine [Norvasc] 10 mg PO DAILY 03/23/19 [History] traZODone 150 mg PO BEDTIME 03/23/19 [History] Tadalafil [Cialis] 5 mg PO ASDIRECTED PRN 10/25/19 [History] Acetaminophen/HYDROcodone [[place] 325-5 MG] 1 - 2 tab PO Q6H PRN #20 tab [Rx] Past Medical History HEENT History: Reports: Impaired Vision Cardiovascular History: Reports: Hypertension, Syncope Respiratory History: Reports: Other (See Below) Other Respiratory History: lung CA Gastrointestinal History: Reports: Cholelithiasis, GERD Genitourinary History: Reports: Prostate Disorder, Renal Calculus Musculoskeletal History: Reports: None, Other (See Below) Other Musculoskeletal History: L leg compartment symdrome Neurological History: Reports: None Psychiatric History: Reports: Depression Endocrine/Metabolic History: Reports: None Hematologic History: Reports: None Immunologic History: Reports: None Oncologic (Cancer) History: Reports: Lung Dermatologic History: Reports: None - Past Surgical History Respiratory Surgical History: Reports: Thoracotomy GI Surgical History: Reports: Appendectomy, Colonoscopy, Hernia, Inguinal Musculoskeletal Surgical History: Reports: Arthroscopic Knee, Shoulder Replacement Social & Family History - Caffeine Use Caffeine Use: Reports: Coffee ED ROS GENERAL - Review of Systems Review Of Systems: See Below Constitutional: Reports: No Symptoms HEENT: Reports: No Symptoms Respiratory: Reports: Pleuritic Chest Pain. Denies: Wheezing, Cough, Sputum, Hemoptysis Cardiovascular: Reports: No Symptoms GI/Abdominal: Reports: No Symptoms : Reports: No Symptoms Musculoskeletal: Reports: No Symptoms Skin: Reports: No Symptoms Neurological: Reports: No Symptoms ED EXAM, GENERAL - Physical Exam Exam: See Below Exam Limited By: No Limitations General Appearance: Alert, WD/WN, No Apparent Distress Eye Exam: Bilateral Eye: Normal Inspection Ears: Normal External Exam, Normal Canal, Hearing Grossly Normal, Normal TMs Ear Exam: Bilateral Ear: Auricle Normal, Canal Normal, TM normal Nose: Normal Inspection, No Blood Throat/Mouth: Normal Inspection, Normal Lips, Normal Oropharynx, Normal Voice, No Airway Compromise Head: Atraumatic, Normocephalic Neck: Normal Inspection Respiratory/Chest: No Respiratory Distress, Lungs Clear, Normal Breath Sounds, No Accessory Muscle Use Cardiovascular: Regular Rate, Rhythm. No: No Edema (trace pitting edema of both legs below the knees.) GI/Abdominal: Normal Bowel Sounds, Soft, Non-Tender, No Distention. No: Distended Back Exam: Normal Inspection. No: CVA Tenderness (R), CVA Tenderness (L) Extremities: Normal Inspection, Normal Range of Motion, Non-Tender, No Pedal Edema, Pedal Edema (trace bilaterally below the knees.) Neurological: Alert, Oriented, CN II-XII Intact, Normal Cognition, No Motor/ Sensory Deficits Psychiatric: Normal Affect, Normal Mood Skin Exam: Warm, Dry, Intact, Normal Color, No Rash EKG INTERPRETATION EKG Date: 11/03/19 Time: 16:30 Rhythm: NSR Rate (Beats/Min): 70 [place]: Normal P-Wave: Present QRS: Normal ST-T: Normal QT: Normal KS/PQ Interval: 266 ms Comparison: NA - No Prior EKG EKG Interpretation Comments: PVC's, 1st degree AV block, no ischemia. Course - Vital Signs Last Recorded V/S: Last Vital Signs Temp 36.1 C 11/03/19 16:47 Pulse 74 11/03/19 16:47 Resp 19 11/03/19 16:47 BP 144/88 H 11/03/19 16:47 Pulse Ox 98 11/03/19 16:47 - Orders/Labs/Meds Orders: Active Orders 24 hr Category Date Time Status EKG Documentation Completion [RC] ASDIRECTED Care 11/03/19 16:16 Active Chest 2V [CR] Stat Exams 11/03/19 17:35 Ordered EKG 12 Lead [EK] Routine Ther 11/03/19 16:16 Ordered Labs: Laboratory Tests 11/03/19 11/03/19 11/03/19 Range/Units 16:41 16:41 16:41 WBC 6.6 (4.5-11.0) K/uL RBC 4.56 (4.30-5.90) M/uL Hgb 13.7 (12.0-15.0) g/dL Hct 41.0 (40.0-54.0) % MCV 90 (80-98) fL MCH 30 (27-31) pg MCHC 33 (32-36) % Plt Count 213 (150-400) K/uL D-Dimer, Quantitative 376 (0.0-400.0) ng/mL Sodium 138 L (140-148) mmol/L Potassium 3.8 (3.6-5.2) mmol/L Chloride 103 (100-108) mmol/L Carbon Dioxide 24 (21-32) mmol/L Anion Gap 14.8 H (5.0-14.0) mmol/L BUN 20 H (7-18) mg/dL Creatinine 1.1 (0.8-1.3) mg/dL Est Cr Clr Drug Dosing 65.60 mL/min Estimated GFR (MDRD) > 60 (>60) Glucose 94 (74-106) mg/dL Calcium 9.4 (8.5-10.1) mg/dL Troponin I < 0.017 (0.000-0.056) ng/mL Meds: Medications Discontinued Medications Generic Name Dose Route Start Last Admin Trade Name Freq PRN Reason Stop Dose Admin Oxycodone/Acetaminophen 1 tab 11/03/19 17:36 11/03/19 17:42 Percocet 325-5 Mg PO 11/03/19 17:37 1 tab ONETIME STA Administration - Radiology Interpretation Free Text/Narrative:: CXR-nothing acute Departure - Departure Time of Disposition: 18:00 Disposition: Home, Self-Care 01 Condition: Fair Clinical Impression: Pleuritic chest pain Lung cancer Qualifiers: Laterality: unspecified laterality Lung location: unspecified part of lung Qualified Code(s): C34.90 - Malignant neoplasm of unspecified part of unspecified bronchus or lung - Discharge Information *PRESCRIPTION DRUG MONITORING PROGRAM REVIEWED*: No *COPY OF PRESCRIPTION DRUG MONITORING REPORT IN PATIENT SUNG: No Prescriptions: Acetaminophen/HYDROcodone [[place] 325-5 MG] 1 - 2 tab PO Q6H PRN #20 tab PRN Reason: Pain Referrals: PCP,None [Primary Care Provider] - Forms: ED Department Discharge Additional Instructions: Take Linwood as directed for pain relief. F/U with your oncologist next week for recheck. Return for fever or SOB or pain that you cannot tolerate. You may take reasonable doses of naproxen still while taking the Linwood for added relief if needed. Sepsis Event Note - Focused Exam Vital Signs: Vital Signs Temp Pulse Resp BP Pulse Ox 11/03/19 16:47 36.1 C 74 19 144/88 H 98 11/03/19 16:39 36.1 C 74 19 144/88 H 98 Date Exam was Performed: 11/03/19 Time Exam was Performed: 17:47 - My Orders Last 24 Hours: My Active Orders 11/03/19 16:16 EKG Documentation Completion [RC] ASDIRECTED EKG 12 Lead [EK] Routine 11/03/19 17:35 Chest 2V [CR] Stat - Assessment/Plan Last 24 Hours: My Active Orders 11/03/19 16:16 EKG Documentation Completion [RC] ASDIRECTED EKG 12 Lead [EK] Routine 11/03/19 17:35 Chest 2V [CR] Stat
[2019-11-03] MEDS ORDERED: Acetaminophen/oxyCODONE 325-5 MG Tab PO STA (17:36)
--- NOTE | 2019-11-06 10:08 | CR ---
CHEST: 2 view CLINICAL HISTORY:Lung carcinoma with pleuritic pain COMPARISON:06/23/2019 FINDINGS: Heart size is mildly enlarged pulmonary vascularity is normal. There is chronic elevation of the right hemidiaphragm. There are atherosclerotic changes in the aorta.. No infiltrate effusion or pneumothorax is seen. Impression: No acute cardiopulmonary process Myocardial megaly.
== END 2019-11-03 18:35 | disposition home or self-care (01) ==
LOC: JP.ED 16:09
DX: G89.3 Neoplasm related pain (acute) (chronic) (principal); C34.90 Malignant neoplasm of unspecified part of unspecified bronchus or lung; I10 Essential (primary) hypertension; K21.9 Gastro-esophageal reflux disease without esophagitis; F32.9 Major depressive disorder, single episode, unspecified; Z79.82 Long term (current) use of aspirin; Z79.899 Other long term (current) drug therapy
CPT/HCPCS: 36415; 71046; 80048; 84484; 85027; 85379; 93005; 99283; 99285; A9270; 93010

== ENCOUNTER 2020-04-02 19:05 | Emergency (ER) | payer MEDICARE ==
[2020-04-02] MEDS ORDERED: Bacitracin Oint 1 GM U/D Packet TOP ONE (19:41)
--- NOTE | 2020-04-02 20:08 | EDM.PDOC ---
<Amisha Dsouza M - Last Filed: 04/02/20 20:03> ED HPI GENERAL MEDICAL PROBLEM - General Chief Complaint: Laceration Stated Complaint: CUT LEFT HAND Time Seen by Provider: 04/02/20 19:24 Source of Information: Reports: Patient, RN, RN Notes Reviewed, Significant Other History Limitations: Reports: No Limitations - History of Present Illness INITIAL COMMENTS - FREE TEXT/NARRATIVE: Patient and spouse here to ER via private vehicle with 1.5 cm lac on dorsal left hand near thumb. Pt was using cross bow and sustained laceration. Denies pain. No acute distress. Onset: Today Onset Date: 04/02/20 - Related Data Allergies Allergy/AdvReac Type Severity Reaction Status Date / Time No Known Allergies Allergy Verified 04/02/20 19:39 Home Meds: Home Meds Aspirin [Ecotrin EC] 162 mg PO DAILY 03/23/19 [History] Fluticasone Propionate [Flonase] 2 spray NS DAILY 03/23/19 [History] Omeprazole 40 mg PO BIDAC 03/23/19 [History] Tamsulosin [Flomax] 0.4 mg PO DAILY 03/23/19 [History] amLODIPine [Norvasc] 10 mg PO DAILY 03/23/19 [History] traZODone 150 mg PO BEDTIME 03/23/19 [History] tadalafiL [Cialis] 5 mg PO ASDIRECTED PRN 10/25/19 [History] Acetaminophen/HYDROcodone [[place] 325-5 MG] 1 - 2 tab PO Q6H PRN #20 tab 11/03/19 [Rx] Diclofenac Sodium [Voltaren 1% Gel] 1 applic TOP BID PRN 03/28/20 [History] methylPREDNISolone [Medrol] 4 mg PO ASDIRECTED #1 dosepk 03/28/20 [Rx] traMADol [Ultram] 50 mg PO Q4H PRN #24 tab 03/28/20 [Rx] Past Medical History HEENT History: Reports: Impaired Vision Cardiovascular History: Reports: Hypertension, Syncope Respiratory History: Reports: Other (See Below) Other Respiratory History: lung CA Gastrointestinal History: Reports: Cholelithiasis, GERD Genitourinary History: Reports: Prostate Disorder, Renal Calculus Musculoskeletal History: Reports: None, Other (See Below) Other Musculoskeletal History: L leg compartment symdrome. left lower leg pain Neurological History: Reports: None Psychiatric History: Reports: Depression Endocrine/Metabolic History: Reports: None Hematologic History: Reports: None Immunologic History: Reports: None Oncologic (Cancer) History: Reports: Lung Dermatologic History: Reports: None - Past Surgical History Respiratory Surgical History: Reports: Thoracotomy GI Surgical History: Reports: Appendectomy, Colonoscopy, Hernia, Inguinal Musculoskeletal Surgical History: Reports: Arthroscopic Knee, Shoulder Replacement Social & Family History - Tobacco Use Smoking Status *Q: Never Smoker - Caffeine Use Caffeine Use: Reports: Coffee ED ROS GENERAL - Review of Systems Review Of Systems: See Below Constitutional: Reports: No Symptoms HEENT: Reports: No Symptoms Respiratory: Reports: No Symptoms Cardiovascular: Reports: No Symptoms Endocrine: Reports: No Symptoms GI/Abdominal: Reports: No Symptoms : Reports: No Symptoms Musculoskeletal: Reports: No Symptoms Skin: Reports: Wound (laceration to left hand ) Neurological: Reports: No Symptoms Psychiatric: Reports: No Symptoms Hematologic/Lymphatic: Reports: No Symptoms Immunologic: Reports: No Symptoms ED EXAM, SKIN/RASH Exam: See Below Exam Limited By: No Limitations General Appearance: Alert, WD/WN, No Apparent Distress Head: Normocephalic Respiratory/Chest: No Respiratory Distress (Male) Exam: Deferred Rectal (Males) Exam: Deferred Extremities: Other (1.5 cm lac dorsal left hand near thumb) Neurological: Alert, Oriented, CN II-XII Intact, Normal Cognition Psychiatric: Normal Affect, Normal Mood Skin: Warm, Dry, Other (1.5 cm laceration to dorsal left hand near thumb) Location, Skin: Upper Extremity, Left ED SKIN PROCEDURES - Laceration/Wound Repair Left Dorsal Hand Appearance: Linear, Clean Distal NVT: Neuro & Vascular Intact, No Tendon Injury Anesthetic Type: Local Local Anesthesia - Lidocaine (Xylocaine): 1% Plain Local Anesthetic Volume: 3cc Skin Prep: Saline, Sterile Drape Closed with: Sutures Lac/Wound length In cm: 1.5 Suture Size: 4-0 Suture Type: Nylon, Interrupted Departure - Departure Time of Disposition: 20:08 Disposition: Refer to Observation Condition: Good Clinical Impression: Laceration of left hand - Discharge Information *PRESCRIPTION DRUG MONITORING PROGRAM REVIEWED*: Not Applicable *COPY OF PRESCRIPTION DRUG MONITORING REPORT IN PATIENT SUNG: Not Applicable Instructions: Laceration Care, Adult, [id number] Referrals: Fadi Yee MD [Primary Care Provider] - Forms: ED Department Discharge Additional Instructions: Watch for signs of infection such as fever, chills, redness, warmth, or drainage from site. Please call 911 or seek medical attention immediately.Please keep laceration clean and dry. Sutures may come out in 1 week. Sepsis Event Note (ED) - Evaluation Sepsis Screening Result: No Definite Risk - Problem List & Annotations (1) Laceration SNOMED Code(s): 945268880 Code(s): [id number] - Status: Acute Current Visit: Yes - Problem List Review Problem List Initiated/Reviewed/Updated: Yes - Assessment/Plan Plan: Watch for signs of infection such as fever, chills, redness, warmth, or drainage from site. Please call 911 or seek medical attention immediately.Please keep laceration clean and dry. Sutures may come out in 1 week. <Wilber Feliciano - Last Filed: 04/02/20 20:20> Course - Vital Signs Last Recorded V/S: Last Vital Signs Temp 98.4 F 04/02/20 19:34 Pulse 72 04/02/20 19:34 Resp 16 04/02/20 19:34 BP 152/95 H 04/02/20 19:34 Pulse Ox 97 04/02/20 19:34 - Orders/Labs/Meds Meds: Medications Discontinued Medications Generic Name Dose Route Start Last Admin Trade Name Freq PRN Reason Stop Dose Admin Bacitracin 1 dose 04/02/20 19:41 04/02/20 19:47 Bacitracin Oint 1 Gm TOP 04/02/20 19:42 1 dose ONETIME ONE Administration Lidocaine HCl 5 ml 04/02/20 19:41 04/02/20 19:47 Xylocaine-Mpf 1% INJECT 04/02/20 19:42 5 ml ONETIME ONE Administration Sepsis Event Note (ED) - Focused Exam Vital Signs: Vital Signs Temp Pulse Resp BP Pulse Ox 04/02/20 19:34 98.4 F 72 16 152/95 H 97 Attestation - Student - Attestation Statement Attestation Statement: I personally performed or re-performed the physical examination and medical decision making. I have verified all student documentation or findings, including history, physical exam and/or medical decision making.
== END 2020-04-02 20:17 ==
LOC: JP.ED 19:05
DX: S61.412A Laceration without foreign body of left hand, initial encounter (principal); I10 Essential (primary) hypertension; K21.9 Gastro-esophageal reflux disease without esophagitis; F32.9 Major depressive disorder, single episode, unspecified; Z79.82 Long term (current) use of aspirin; Z79.899 Other long term (current) drug therapy; W26.8XXA Contact with other sharp object(s), not elsewhere classified, initial encounter
CPT/HCPCS: 12001; 99282; J2001

== ENCOUNTER 2021-05-10 12:41 | Emergency (ER) | payer MEDICARE ==
--- NOTE | 2021-05-10 15:44 | EDM.PDOC ---
ED HPI GENERAL MEDICAL PROBLEM - General Chief Complaint: Lower Extremity Injury/Pain Stated Complaint: fell out of tree stand about 9- 10 feet Time Seen by Provider: 05/10/21 15:40 Source of Information: Reports: Patient, Family, RN Notes Reviewed History Limitations: Reports: No Limitations - History of Present Illness INITIAL COMMENTS - FREE TEXT/NARRATIVE: 70-year-old gentleman presents emergency department today with pain in his right leg, he injured himself while he was working on his tree stand he was on the ladder it started to fall over so he jumped out of it landed on his feet however he injured his right leg he now has a large hematoma on his lower extremity midway up the calf no difficulty with ambulation - Related Data Allergies Allergy/AdvReac Type Severity Reaction Status Date / Time No Known Allergies Allergy Verified 04/02/20 19:39 Home Meds: Home Meds Fluticasone Propionate [Flonase] 2 spray NS DAILY 03/23/19 [History] Omeprazole 40 mg PO BIDAC 03/23/19 [History] Tamsulosin [Flomax] 0.4 mg PO DAILY 03/23/19 [History] amLODIPine [Norvasc] 10 mg PO DAILY 03/23/19 [History] traZODone 150 mg PO BEDTIME 03/23/19 [History] tadalafiL [Cialis] 5 mg PO ASDIRECTED PRN 10/25/19 [History] Diclofenac Sodium [Voltaren 1% Gel] 1 applic TOP BID PRN 03/28/20 [History] Celecoxib [CeleBREX] 100 mg PO BID 05/10/21 [History] Gabapentin [Neurontin] 300 mg PO TID 05/10/21 [History] Past Medical History HEENT History: Reports: Impaired Vision Cardiovascular History: Reports: Hypertension, Syncope Respiratory History: Reports: Other (See Below) Other Respiratory History: lung CA Gastrointestinal History: Reports: Cholelithiasis, GERD Genitourinary History: Reports: Prostate Disorder, Renal Calculus Musculoskeletal History: Reports: None, Other (See Below) Other Musculoskeletal History: L leg compartment symdrome. left lower leg pain Neurological History: Reports: None Psychiatric History: Reports: Depression Endocrine/Metabolic History: Reports: None Hematologic History: Reports: None Immunologic History: Reports: None Oncologic (Cancer) History: Reports: Lung Dermatologic History: Reports: None - Infectious Disease History Infectious Disease History: Reports: Chicken Pox, Influenza, Measles, Mumps - Past Surgical History HEENT Surgical History: Reports: None Respiratory Surgical History: Reports: Thoracotomy GI Surgical History: Reports: Appendectomy, Colonoscopy, Hernia, Inguinal Male Surgical History: Reports: None Musculoskeletal Surgical History: Reports: Arthroscopic Knee, Shoulder Replacement Social & Family History - Tobacco Use Tobacco Use Status *Q: Former Tobacco User Years of Tobacco use: 7 Packs/Tins Daily: 1 Used Tobacco, but Quit: Yes Month/Year Tobacco Last Used: 04/1973 - Caffeine Use Caffeine Use: Reports: Coffee - Recreational Drug Use Recreational Drug Use: No Review of Systems - Review of Systems Review Of Systems: See Below Constitutional: Reports: No Symptoms Respiratory: Reports: No Symptoms Cardiovascular: Reports: No Symptoms Musculoskeletal: Reports: Leg Pain ED EXAM, GENERAL - Physical Exam Exam: See Below Free Text/Narrative:: Examination of the right leg pedal pulses +2 he does have an obvious hematoma forming midshaft lateral aspect of the lower extremity it is tender to the touch there is no tenderness at the ankle no tenderness at the knee Exam Limited By: No Limitations General Appearance: Alert, WD/WN, No Apparent Distress Course - Vital Signs Last Recorded V/S: Last Vital Signs Temp 97.8 F 05/10/21 14:57 Pulse 71 05/10/21 14:57 Resp 17 05/10/21 14:57 BP 126/88 05/10/21 14:57 Pulse Ox 95 05/10/21 14:57 - Orders/Labs/Meds Orders: Active Orders 24 hr Category Date Time Status Extremity Non Vascular Lt [US] Stat Exams 05/10/21 16:26 Ordered Tibia Fibula Rt [CR] Stat Exams 05/10/21 15:42 Taken Departure - Departure Time of Disposition: 17:26 Disposition: Home, Self-Care 01 Condition: Fair Clinical Impression: Hematoma of left lower leg - Discharge Information Instructions: Hematoma Referrals: Fadi Yee MD [Primary Care Provider] - Forms: ED Department Discharge Additional Instructions: Continue symptomatic care for your hematoma orthopedics will call you on Wednesday for an appointment time with Dr. Jackson call return to the emergency department worsening of symptoms, Sepsis Event Note (ED) - Focused Exam Vital Signs: Vital Signs Temp Pulse Resp BP Pulse Ox 05/10/21 14:57 97.8 F 71 17 126/88 95 05/10/21 14:47 97.8 F 71 17 126/88 95 - My Orders Last 24 Hours: My Active Orders 05/10/21 15:42 Tibia Fibula Rt [CR] Stat 05/10/21 16:26 Extremity Non Vascular Lt [US] Stat - Assessment/Plan Last 24 Hours: My Active Orders 05/10/21 15:42 Tibia Fibula Rt [CR] Stat 05/10/21 16:26 Extremity Non Vascular Lt [US] Stat Plan: Assessment Acuity = acute Site and laterality = left leg hematoma Etiology = trauma jumping off a ladder Manifestations = none Location of injury = Home Lab values = ,x-ray reveals no fracture official read radiologist pending, ultrasound reveals a contained hematoma without any active blood flow Plan He is can continue symptomatic care I did set him up with orthopedics for follow-up he does have a history of compartment syndrome in the other leg This note was dictated using [email or web address] voice recognition software please call with any questions on syntax or grammar.
--- NOTE | 2021-05-12 09:43 | CR ---
Tibia Fibula Rt CLINICAL HISTORY: Fall FINDINGS: Two views show no evidence of fracture or bone destruction. No soft tissue abnormality is seen. There is soft tissue swelling in the lateral calf. Knee is not well seen. Impression: Lateral soft tissue swelling No fracture seen
--- NOTE | 2021-05-12 09:54 | US ---
Extremity Non Vascular Lt CLINICAL HISTORY: Right calf injury FINDINGS: The lateral right calf there is a 3.8 x 1.5 x 2.9 cm heterogeneous hypoechoic complex fluid collection consistent with a hematoma no internal flow is identified IMPRESSION: Right lateral calf hematoma
== END 2021-05-10 17:36 | disposition home or self-care (01) ==
LOC: JP.ED 12:41
DX: S80.12XA Contusion of left lower leg, initial encounter (principal); I10 Essential (primary) hypertension; K21.9 Gastro-esophageal reflux disease without esophagitis; Z87.891 Personal history of nicotine dependence; Z79.899 Other long term (current) drug therapy; W11.XXXA Fall on and from ladder, initial encounter; Y99.0 Civilian activity done for income or pay
CPT/HCPCS: 73590-26-RT; 73590-RT; 76881-26; 76881-LT; 99284-25

== ENCOUNTER 2022-09-02 07:25 | Day surgery (SDC) | payer MEDICARE ==
[2022-09-02] MEDS ORDERED: Propofol 200 MG/20 ML SDV ONE (08:00)
[2022-09-02] MEDS ORDERED: Lactated Ringers 1,000 ML IV SCH (08:00)
[2022-09-02] MEDS ORDERED: fentaNYL 100 MCG/2 ML SDV ONE (08:01)
== END 2022-09-02 10:23 | disposition home or self-care (01) ==
LOC: JP.SDS 07:25
PROVIDERS: ATTEND Student in an Organized Health Care Education/Training Program
DX: K29.50 Unspecified chronic gastritis without bleeding (principal); K20.90 Esophagitis, unspecified without bleeding; K44.9 Diaphragmatic hernia without obstruction or gangrene; Z79.899 Other long term (current) drug therapy; Z91.040 Latex allergy status; Z88.8 Allergy status to other drugs, medicaments and biological substances; Z88.1 Allergy status to other antibiotic agents
CPT/HCPCS: 43239; 88305; 88342; J2704; J3010; J7120

== ENCOUNTER 2023-02-02 15:32 | Inpatient (IN) | payer MEDICARE ==
[2023-02-02] MEDS ORDERED: HYDROmorphone 0.5 MG/0.5 ML Syringe IVPUSH ONE ×2 (15:46→16:35)
[2023-02-02] MEDS ORDERED: Sodium Chloride 0.9% 1,000 ML IV ONE (15:46)
[2023-02-02 15:57] LABS: BASOPHILS ABSOLUTE AUTO 0.02 K/uL (0.00-0.10); BASOPHILS PERCENT AUTO 0.2 % (0.1-1.3); EOSINOPHILS ABSOLUTE AUTO 0.01 K/uL (0.00-0.40); EOSINOPHILS PERCENT AUTO 0.1 % (0.0-5.4); HEMATOCRIT 39.9 % (38.4-49.7); HEMOGLOBIN 13.4 g/dL (12.9-16.9); IMMATURE GRAN ABSOLUTE AUTO 0.02 K/uL (0.00-0.23); IMMATURE GRAN PERCENT AUTO 0.2 % (0.0-0.7); LYMPHOCYTES PERCENT AUTO 5.2 % (11.4-47.7); MEAN CORPUSCULAR HEMOGLOBIN 30.5 pg (31.6-35.5); MEAN CORPUSCULAR HGB CONC 33.6 g/dL (31.6-35.5); MEAN CORPUSCULAR VOLUME 90.7 fL (81.4-99.0); MONOCYTES ABSOLUTE AUTO 1.21 K/uL (0.20-0.90); MONOCYTES PERCENT AUTO 12.5 % (3.3-12.6); NEUTROPHILS ABSOLUTE AUTO 7.94 K/uL (1.0-7.6); NEUTROPHILS PERCENT AUTO 81.8 % (40.0-78.1); PLATELET COUNT,PLT 141 K/uL (130-375); WHITE BLOOD CELL COUNT,WBC 9.7 K/uL (3.2-11.0)
[2023-02-02 16:19] LABS: ALANINE AMINOTRANSFERASE,ALT 27 U/L (12-78); ALBUMIN 3.5 g/dL (3.4-5.0); ALKALINE PHOSPHATASE 111 U/L (46-116); ASPARTATE AMNIOTRANSFERASE,AST 33 U/L (15-37); BILIRUBIN TOTAL 1.2 mg/dL (0.2-1.0); BLOOD UREA NITROGEN,BUN 18 mg/dL (7-18); CALCIUM 9.1 mg/dL (8.5-10.1); CARBON DIOXIDE,CO2 27 mmol/L (21-32); CHLORIDE,CL 99 mmol/L (100-108); CREATININE 1.1 mg/dL (0.8-1.3); EST CRCL DRUG DOSING (CG) 61.79 mL/min; ESTIMATED GFR 70 mL/min (>60); GLUCOSE RANDOM 165 mg/dL (74-106); POTASSIUM,K 4.5 mmol/L (3.6-5.2); PROTEIN TOTAL,TP 7.2 g/dL (6.4-8.2); SODIUM,NA 135 mmol/L (140-148); TROPONIN I HIGH SENSITIVITY 9.3 pg/mL (<=60.3)
[2023-02-02 16:20] LABS: ANION GAP 13.5 mmol/L (5.0-14.0)
[2023-02-02] MEDS ORDERED: Lactated Ringers 1,000 ML IV SCH (17:15)
[2023-02-02] MEDS ORDERED: HYDROmorphone 1 MG/ML Syringe IVPUSH ONE (19:45)
[2023-02-02] MEDS ORDERED: Ondansetron 4 MG/2 ML SDV IVPUSH PRN (20:08)
[2023-02-02] MEDS ORDERED: Ondansetron 4 MG/2 ML SDV IV PRN (20:08)
[2023-02-02] MEDS ORDERED: Non-Formulary Medication 1 Each (Trazodone [Trazodone] 150 MG Tablet) PO PRN (20:08)
[2023-02-02] MEDS ORDERED: diphenhydrAMINE 25 MG Cap PO PRN (20:08)
[2023-02-02] MEDS ORDERED: Naloxone 0.4 MG/ML SDV IVPUSH PRN ×2 (20:08)
[2023-02-02] MEDS ORDERED: diphenhydrAMINE 50 MG/ML SDV IVPUSH PRN (20:08)
[2023-02-02] MEDS ORDERED: Enoxaparin 40 MG/0.4 ML Syringe SUBCUT SCH (20:08)
[2023-02-02] MEDS ORDERED: LORazepam 2 MG/ML SDV IV PRN (20:08)
[2023-02-02] MEDS: Sodium Chloride 0.9% 1,000 ML IV SCH (21:32)
[2023-02-02] MEDS: HYDROmorphone/Normal Saline 6 MG/30 ML PCA Vial IV PRN (21:34)
[2023-02-02] MEDS: Pantoprazole 40 MG Vial IV SCH (21:40)
[2023-02-03 01:18] LABS: APPEARANCE,URINE CLEAR (CLEAR); BILIRUBIN,URINE NEGATIVE (NEGATIVE); COLOR,URINE YELLOW (YELLOW); GLUCOSE,URINE NEGATIVE (NEGATIVE); KETONES,URINE NEGATIVE (NEGATIVE); LEUKOCYTE ESTERASE,URINE NEGATIVE (NEGATIVE); NITRITE,URINE NEGATIVE (NEGATIVE); OCCULT BLOOD,URINE NEGATIVE (NEGATIVE); PH,URINE 5.5 (5.0-8.0); PROTEIN,URINE NEGATIVE (NEGATIVE); UROBILINOGEN,URINE 0.2 EU/dL (0.2-1.0)
[2023-02-03 02:01] LABS: RBC,URINE 0-5 (0-5); WBC,URINE 0-5 (0-5)
[2023-02-03 02:02] LABS: AMORPHOUS SEDIMENT,URINE FEW; BACTERIA,URINE FEW; EPITHELIAL CELLS,URINE NOT SEEN; MUCUS,URINE NOT SEEN
[2023-02-03 04:56] LABS: BASOPHILS PERCENT AUTO 0.3 % (0.1-1.3); EOSINOPHILS ABSOLUTE AUTO 0.04 K/uL (0.00-0.40); EOSINOPHILS PERCENT AUTO 0.6 % (0.0-5.4); HEMATOCRIT 32.8 % (38.4-49.7); HEMOGLOBIN 10.9 g/dL (12.9-16.9); IMMATURE GRAN ABSOLUTE AUTO 0.03 K/uL (0.00-0.23); IMMATURE GRAN PERCENT AUTO 0.5 % (0.0-0.7); LYMPHOCYTES PERCENT AUTO 14.5 % (11.4-47.7); MEAN CORPUSCULAR HEMOGLOBIN 30.4 pg (31.6-35.5); MEAN CORPUSCULAR HGB CONC 33.2 g/dL (31.6-35.5); MEAN CORPUSCULAR VOLUME 91.4 fL (81.4-99.0); MONOCYTES ABSOLUTE AUTO 1.22 K/uL (0.20-0.90); MONOCYTES PERCENT AUTO 19.7 % (3.3-12.6); NEUTROPHILS ABSOLUTE AUTO 3.99 K/uL (1.0-7.6); NEUTROPHILS PERCENT AUTO 64.4 % (40.0-78.1); PLATELET COUNT,PLT 109 K/uL (130-375); RED BLOOD CELL COUNT 3.59 M/uL (4.14-5.76); WHITE BLOOD CELL COUNT,WBC 6.2 K/uL (3.2-11.0)
[2023-02-03 05:15] LABS: BASOPHILS ABSOLUTE AUTO 0.02 K/uL (0.00-0.10)
[2023-02-03 05:18] LABS: A/G RATIO 0.9 (1.2-2.2); ALANINE AMINOTRANSFERASE,ALT 18 U/L (12-78); ALBUMIN 2.7 g/dL (3.4-5.0); ALKALINE PHOSPHATASE 87 U/L (46-116); AMYLASE 125 U/L (25-115); ANION GAP 6.7 mmol/L (5.0-14.0); ASPARTATE AMNIOTRANSFERASE,AST 11 U/L (15-37); BILIRUBIN TOTAL 0.8 mg/dL (0.2-1.0); BLOOD UREA NITROGEN,BUN 13 mg/dL (7-18); CALCIUM 8.5 mg/dL (8.5-10.1); CARBON DIOXIDE,CO2 26 mmol/L (21-32); CHLORIDE,CL 108 mmol/L (100-108); CREATININE 0.9 mg/dL (0.8-1.3); EST CRCL DRUG DOSING (CG) 74.35 mL/min; ESTIMATED GFR 90 mL/min (>60); GLUCOSE RANDOM 104 mg/dL (74-106); POTASSIUM,K 4.1 mmol/L (3.6-5.2); PROTEIN TOTAL,TP 5.7 g/dL (6.4-8.2); SODIUM,NA 141 mmol/L (140-148)
[2023-02-03] MEDS: Sodium Chloride 0.9% 1,000 ML IV SCH ×3 (05:36→22:04)
[2023-02-03] MEDS: Fluticasone NASAL Spray 16 GM Bottle NASBOTH SCH (09:36)
[2023-02-03] MEDS: amLODIPine 5 MG Tab PO SCH (09:38)
[2023-02-03] MEDS: Tamsulosin 0.4 MG Cap.ER PO SCH (09:39)
[2023-02-03] MEDS: Gabapentin 300 MG Cap PO SCH ×2 (13:09→21:10)
[2023-02-03] MEDS: Ciprofloxacin 500 MG Tab PO SCH ×2 (13:10→21:10)
[2023-02-03] MEDS: HYDROmorphone/Normal Saline 6 MG/30 ML PCA Vial IV PRN (15:59)
[2023-02-03] MEDS ORDERED: Enoxaparin 40 MG/0.4 ML Syringe SUBCUT SCH (21:00)
[2023-02-03] MEDS ORDERED: traZODone 50 MG Tab PO SCH (21:00)
[2023-02-03] MEDS: Pantoprazole 40 MG Vial IV SCH (21:10)
[2023-02-04 04:45] LABS: HEMATOCRIT 32.1 % (38.4-49.7); HEMOGLOBIN 10.6 g/dL (12.9-16.9); MEAN CORPUSCULAR HEMOGLOBIN 30.6 pg (31.6-35.5); MEAN CORPUSCULAR VOLUME 92.8 fL (81.4-99.0); RED BLOOD CELL COUNT 3.46 M/uL (4.14-5.76); WHITE BLOOD CELL COUNT,WBC 5.3 K/uL (3.2-11.0)
[2023-02-04 05:28] LABS: A/G RATIO 0.8 (1.2-2.2); ALANINE AMINOTRANSFERASE,ALT 18 U/L (12-78); ALBUMIN 2.7 g/dL (3.4-5.0); ALKALINE PHOSPHATASE 95 U/L (46-116); ANION GAP 8.7 mmol/L (5.0-14.0); ASPARTATE AMNIOTRANSFERASE,AST 16 U/L (15-37); BILIRUBIN TOTAL 0.8 mg/dL (0.2-1.0); BLOOD UREA NITROGEN,BUN 13 mg/dL (7-18); CALCIUM 8.3 mg/dL (8.5-10.1); CARBON DIOXIDE,CO2 24 mmol/L (21-32); CHLORIDE,CL 107 mmol/L (100-108); CREATININE 0.8 mg/dL (0.8-1.3); EST CRCL DRUG DOSING (CG) 83.85 mL/min; ESTIMATED GFR 93 mL/min (>60); GLUCOSE RANDOM 75 mg/dL (74-106); POTASSIUM,K 3.8 mmol/L (3.6-5.2); PROTEIN TOTAL,TP 5.9 g/dL (6.4-8.2); SODIUM,NA 140 mmol/L (140-148)
[2023-02-04] MEDS: Sodium Chloride 0.9% 1,000 ML IV SCH (05:58)
[2023-02-04] MEDS ORDERED: DULoxetine 30 MG Cap PO SCH (09:00)
[2023-02-04] MEDS: Ciprofloxacin 500 MG Tab PO SCH (09:06)
[2023-02-04] MEDS: Tamsulosin 0.4 MG Cap.ER PO SCH (09:06)
[2023-02-04] MEDS: Gabapentin 300 MG Cap PO SCH (09:06)
[2023-02-04] MEDS: Fluticasone NASAL Spray 16 GM Bottle NASBOTH SCH (09:07)
[2023-02-04] MEDS: amLODIPine 5 MG Tab PO SCH (09:08)
[2023-02-04] MEDS ORDERED: Amylase/Lipase/Protease 12,000 Unit Cap.CR PO ONE (12:00)
== END 2023-02-04 13:50 | disposition home or self-care (01) | DRG 393 ==
LOC: JP.ED 15:32 → JP.MS 19:03
PROVIDERS: ADMIT Internal Medicine; ATTEND Internal Medicine
DX: K91.89 Other postprocedural complications and disorders of digestive system (principal); K85.80 Other acute pancreatitis without necrosis or infection; K86.0 Alcohol-induced chronic pancreatitis; K85.90 Acute pancreatitis without necrosis or infection, unspecified; I10 Essential (primary) hypertension; F32.A Depression, unspecified; N40.1 Benign prostatic hyperplasia with lower urinary tract symptoms; D64.9 Anemia, unspecified; Z88.1 Allergy status to other antibiotic agents; K21.9 Gastro-esophageal reflux disease without esophagitis; Z90.49 Acquired absence of other specified parts of digestive tract; Z96.652 Presence of left artificial knee joint; I44.7 Left bundle-branch block, unspecified; Z20.822 Contact with and (suspected) exposure to COVID-19; Z86.718 Personal history of other venous thrombosis and embolism; Z85.118 Personal history of other malignant neoplasm of bronchus and lung; Z96.619 Presence of unspecified artificial shoulder joint; R94.31 Abnormal electrocardiogram [ECG] [EKG]; Z79.899 Other long term (current) drug therapy; Z88.8 Allergy status to other drugs, medicaments and biological substances
CPT/HCPCS: 36415; 74176 ×2; 80053; 83690; 84484; 85025; 93005; 96361; 96374; 96376; 99285; J1170 ×2; J7030; J7120; 81001; 82150; 85027; 93010; 99221; 99231; 99238; A9270-GY; C9113; J1650; U0002

== ENCOUNTER 2023-06-05 22:30 | Emergency (ER) | payer MEDICARE ==
[2023-06-05 22:46] LABS: BASOPHILS ABSOLUTE AUTO 0.03 K/uL (0.00-0.10); BASOPHILS PERCENT AUTO 0.3 % (0.1-1.3); EOSINOPHILS ABSOLUTE AUTO 0.14 K/uL (0.00-0.40); EOSINOPHILS PERCENT AUTO 1.5 % (0.0-5.4); HEMATOCRIT 40.3 % (38.4-49.7); HEMOGLOBIN 13.6 g/dL (12.9-16.9); IMMATURE GRAN ABSOLUTE AUTO 0.03 K/uL (0.00-0.23); IMMATURE GRAN PERCENT AUTO 0.3 % (0.0-0.7); LYMPHOCYTES ABSOLUTE AUTO 1.07 K/uL (0.8-3.3); LYMPHOCYTES PERCENT AUTO 11.7 % (11.4-47.7); MEAN CORPUSCULAR HEMOGLOBIN 30.8 pg (31.6-35.5); MEAN CORPUSCULAR HGB CONC 33.7 g/dL (31.6-35.5); MEAN CORPUSCULAR VOLUME 91.2 fL (81.4-99.0); MONOCYTES ABSOLUTE AUTO 0.91 K/uL (0.20-0.90); NEUTROPHILS ABSOLUTE AUTO 6.96 K/uL (1.0-7.6); NEUTROPHILS PERCENT AUTO 76.2 % (40.0-78.1); PLATELET COUNT,PLT 149 K/uL (130-375); RED BLOOD CELL COUNT 4.42 M/uL (4.14-5.76); WHITE BLOOD CELL COUNT,WBC 9.1 K/uL (3.2-11.0)
[2023-06-05 23:07] LABS: A/G RATIO 1.2 (1.2-2.2); ALANINE AMINOTRANSFERASE,ALT 11 U/L (12-78); ALBUMIN 3.8 g/dL (3.4-5.0); ALKALINE PHOSPHATASE 102 U/L (46-116); ASPARTATE AMNIOTRANSFERASE,AST 13 U/L (15-37); BILIRUBIN TOTAL 0.4 mg/dL (0.2-1.0); BLOOD UREA NITROGEN,BUN 14 mg/dL (7-18); C-REACTIVE PROTEIN 0.17 mg/dL (0.0-0.3); CALCIUM 8.5 mg/dL (8.5-10.1); CARBON DIOXIDE,CO2 31 mmol/L (21-32); CHLORIDE,CL 101 mmol/L (100-108); CREATININE 0.9 mg/dL (0.8-1.3); EST CRCL DRUG DOSING (CG) 74.35 mL/min; ESTIMATED GFR 90 mL/min (>60); GLUCOSE RANDOM 104 mg/dL (74-106); POTASSIUM,K 3.9 mmol/L (3.6-5.2); PROTEIN TOTAL,TP 7.1 g/dL (6.4-8.2); SODIUM,NA 139 mmol/L (140-148); TROPONIN I HIGH SENSITIVITY 10.5 pg/mL (<=60.3)
[2023-06-05 23:16] LABS: ANION GAP 10.9 mmol/L (5.0-14.0)
[2023-06-05] MEDS: fentaNYL 50 MCG/ML SDV IVPUSH ONE (23:34)
[2023-06-05] MEDS: Iopamidol 755 Mg/ML 100 ML Bottle IV ONE (23:58)
[2023-06-05] MEDS: Sodium Chloride 0.9% 75 ML IV SCH (23:58)
[2023-06-06] MEDS: HYDROmorphone 0.5 MG/0.5 ML Syringe IVPUSH ONE (00:08)
== END 2023-06-06 01:16 | disposition home or self-care (01) ==
LOC: JP.ED 22:30
DX: R07.81 Pleurodynia (principal); R07.89 Other chest pain; I10 Essential (primary) hypertension; K21.9 Gastro-esophageal reflux disease without esophagitis; Z79.899 Other long term (current) drug therapy; Z88.1 Allergy status to other antibiotic agents; Z88.8 Allergy status to other drugs, medicaments and biological substances
CPT/HCPCS: 36415; 71045; 71045-26; 71275; 80053; 84484; 85025; 85379; 86140; 93005; 93010; 96374; 96375; 99284; 99284-25; J1170; J3010; J3490; Q9967

== ENCOUNTER 2023-09-11 10:08 | Emergency (ER) | payer MEDICARE | END 2023-09-11 11:22 | disposition home or self-care (01) | LOC: JP.ED 10:08 | DX: G89.29 Other chronic pain (principal); M54.9 Dorsalgia, unspecified; I10 Essential (primary) hypertension; K21.9 Gastro-esophageal reflux disease without esophagitis; Z76.0 Encounter for issue of repeat prescription; Z88.8 Allergy status to other drugs, medicaments and biological substances; Z88.1 Allergy status to other antibiotic agents; Z79.899 Other long term (current) drug therapy; Z86.19 Personal history of other infectious and parasitic diseases; Z90.49 Acquired absence of other specified parts of digestive tract | CPT/HCPCS: 99283 ==

== ENCOUNTER 2023-09-17 11:36 | Emergency (ER) | payer MEDICARE ==
[2023-09-17] MEDS: Aspirin 81 MG Tab.Chew PO ONE (12:00)
[2023-09-17 12:01] LABS: BASOPHILS ABSOLUTE AUTO 0.03 K/uL (0.00-0.10); BASOPHILS PERCENT AUTO 0.3 % (0.1-1.3); EOSINOPHILS ABSOLUTE AUTO 0.01 K/uL (0.00-0.40); EOSINOPHILS PERCENT AUTO 0.1 % (0.0-5.4); HEMATOCRIT 42.6 % (38.4-49.7); HEMOGLOBIN 14.7 g/dL (12.9-16.9); IMMATURE GRAN ABSOLUTE AUTO 0.03 K/uL (0.00-0.23); IMMATURE GRAN PERCENT AUTO 0.3 % (0.0-0.7); LYMPHOCYTES ABSOLUTE AUTO 0.81 K/uL (0.8-3.3); LYMPHOCYTES PERCENT AUTO 8.5 % (11.4-47.7); MEAN CORPUSCULAR HEMOGLOBIN 29.9 pg (31.6-35.5); MEAN CORPUSCULAR HGB CONC 34.5 g/dL (31.6-35.5); MEAN CORPUSCULAR VOLUME 86.8 fL (81.4-99.0); MONOCYTES ABSOLUTE AUTO 1.35 K/uL (0.20-0.90); MONOCYTES PERCENT AUTO 14.1 % (3.3-12.6); NEUTROPHILS ABSOLUTE AUTO 7.34 K/uL (1.0-7.6); NEUTROPHILS PERCENT AUTO 76.7 % (40.0-78.1); PLATELET COUNT,PLT 155 K/uL (130-375); RED BLOOD CELL COUNT 4.91 M/uL (4.14-5.76); WHITE BLOOD CELL COUNT,WBC 9.6 K/uL (3.2-11.0)
[2023-09-17] MEDS: Alum Hydrox/Mag Hydrox/Simeth 15 ML, Lidocaine 2% 15 ML PO ONE (12:01)
[2023-09-17 12:15] LABS: CALCIUM 9.3 mg/dL (8.5-10.1); EST CRCL DRUG DOSING (CG) 67.97 mL/min; POTASSIUM,K 3.8 mmol/L (3.6-5.2); TROPONIN I HIGH SENSITIVITY 11.3 pg/mL (<=60.3)
[2023-09-17 12:17] LABS: ANION GAP 13.8 mmol/L (5.0-14.0)
[2023-09-17] MEDS: Morphine 4 MG/ML Syringe IVPUSH PRN (12:19)
[2023-09-17] MEDS: Sodium Chloride 0.9% 10 ML Syringe FLUSH PRN (12:19)
[2023-09-17] MEDS: Sodium Chloride 0.9% 1,000 ML IV SCH (13:20)
[2023-09-17] MEDS: Nitroglycerin 0.4 MG Tab.SL SL PRN (13:21)
[2023-09-17] MEDS: HYDROmorphone 1 MG/ML Syringe IVPUSH ONE (14:27)
== END 2023-09-17 15:29 | disposition home or self-care (01) ==
LOC: JP.ED 11:36
DX: R10.13 Epigastric pain (principal); I10 Essential (primary) hypertension; I25.2 Old myocardial infarction; K21.9 Gastro-esophageal reflux disease without esophagitis; Z87.891 Personal history of nicotine dependence; Z88.1 Allergy status to other antibiotic agents; Z88.8 Allergy status to other drugs, medicaments and biological substances; Z79.899 Other long term (current) drug therapy; Z90.49 Acquired absence of other specified parts of digestive tract
CPT/HCPCS: 36415; 71045; 80048; 84484; 85025; 93005; 96374; 96375; 99284; A9270; J1170; J2270; J3490; J7030

== ENCOUNTER 2023-09-22 14:54 | Emergency (ER) | payer MEDICARE ==
[2023-09-22 15:44] LABS: BASE EXCESS ARTERIAL 3.1 mm/L; BICARBONATE,ARTERIAL 24.6 mmol/L (22.0-26.0); CARBOXYHEMOGLOBIN 1.7 % (0.0-1.6); METHEMOGLOBIN 0.5 %; O2 SATURATION ARTERIAL 96.6 % (95.0-98.0); OXYHEMOGLOBIN 94.5 %; PCO2 ARTERIAL 29.3 mmHg (35.0-42.0); PO2 ARTERIAL 75.9 mmHg (75.0-100.0); TOTAL HEMOGLOBIN 13.6 g/dL (13.5-18.0)
[2023-09-22 15:47] LABS: BASOPHILS PERCENT AUTO 0.1 % (0.1-1.3); EOSINOPHILS ABSOLUTE AUTO 0.03 K/uL (0.00-0.40); EOSINOPHILS PERCENT AUTO 0.4 % (0.0-5.4); HEMATOCRIT 38.3 % (38.4-49.7); IMMATURE GRAN PERCENT AUTO 0.1 % (0.0-0.7); LYMPHOCYTES ABSOLUTE AUTO 0.96 K/uL (0.8-3.3); LYMPHOCYTES PERCENT AUTO 12.8 % (11.4-47.7); MEAN CORPUSCULAR HEMOGLOBIN 29.3 pg (31.6-35.5); MEAN CORPUSCULAR HGB CONC 33.9 g/dL (31.6-35.5); MEAN CORPUSCULAR VOLUME 86.5 fL (81.4-99.0); NEUTROPHILS ABSOLUTE AUTO 5.91 K/uL (1.0-7.6); NEUTROPHILS PERCENT AUTO 78.6 % (40.0-78.1); PLATELET COUNT,PLT 189 K/uL (130-375); RED BLOOD CELL COUNT 4.43 M/uL (4.14-5.76); WHITE BLOOD CELL COUNT,WBC 7.5 K/uL (3.2-11.0)
[2023-09-22 15:50] LABS: BASOPHILS ABSOLUTE AUTO 0.01 K/uL (0.00-0.10); IMMATURE GRAN ABSOLUTE AUTO 0.01 K/uL (0.00-0.23)
[2023-09-22 16:04] LABS: PROTHROMBIN TIME 10.5 sec (9.2-10.6); PTT,PARTIAL THROMBOPLSTIN TIME 29.2 sec (21.8-27.3)
[2023-09-22 16:10] LABS: A/G RATIO 0.9 (1.2-2.2); ALANINE AMINOTRANSFERASE,ALT 21 U/L (12-78); ALBUMIN 3.3 g/dL (3.4-5.0); ALKALINE PHOSPHATASE 107 U/L (46-116); ASPARTATE AMNIOTRANSFERASE,AST 20 U/L (15-37); BILIRUBIN TOTAL 0.6 mg/dL (0.2-1.0); BLOOD UREA NITROGEN,BUN 18 mg/dL (7-18); CALCIUM 8.6 mg/dL (8.5-10.1); CARBON DIOXIDE,CO2 26 mmol/L (21-32); CHLORIDE,CL 103 mmol/L (100-108); CREATININE 1.1 mg/dL (0.8-1.3); EST CRCL DRUG DOSING (CG) 60.83 mL/min; ESTIMATED GFR 70 mL/min (>60); GLUCOSE RANDOM 94 mg/dL (74-106); MAGNESIUM 2.1 mg/dL (1.8-2.4); POTASSIUM,K 4.3 mmol/L (3.6-5.2); PROTEIN TOTAL,TP 6.9 g/dL (6.4-8.2); SODIUM,NA 139 mmol/L (140-148); TROPONIN I HIGH SENSITIVITY 7.9 pg/mL (<=60.3)
[2023-09-22 16:13] LABS: ANION GAP 14.3 mmol/L (5.0-14.0)
[2023-09-22] MEDS: Albuterol/Ipratropium 3.0-0.5 MG/3 ML Neb Soln NEB ONE (16:23)
[2023-09-22] MEDS: Sodium Chloride 0.9% 100 ML IV SCH (17:24)
[2023-09-22] MEDS: Iopamidol 755 Mg/ML 100 ML Bottle IV SCH (17:24)
[2023-09-22] MEDS: Calcium Carbonate 500 MG Tab.Chew PO ONE (17:33)
[2023-09-22 17:42] LABS: APPEARANCE,URINE CLEAR (CLEAR); BILIRUBIN,URINE NEGATIVE (NEGATIVE); COLOR,URINE YELLOW (YELLOW); GLUCOSE,URINE NEGATIVE (NEGATIVE); KETONES,URINE NEGATIVE (NEGATIVE); LEUKOCYTE ESTERASE,URINE NEGATIVE (NEGATIVE); NITRITE,URINE NEGATIVE (NEGATIVE); OCCULT BLOOD,URINE NEGATIVE (NEGATIVE); PROTEIN,URINE NEGATIVE (NEGATIVE); UROBILINOGEN,URINE 0.2 EU/dL (0.2-1.0)
[2023-09-22 17:54] LABS: AMORPHOUS SEDIMENT,URINE NOT SEEN; BACTERIA,URINE NOT SEEN; EPITHELIAL CELLS,URINE RARE; MUCUS,URINE NOT SEEN; RBC,URINE 0-5 (0-5); WBC,URINE 0-5 (0-5)
== END 2023-09-22 18:53 | disposition home or self-care (01) ==
LOC: JP.ED 14:54
DX: R06.02 Shortness of breath (principal); I10 Essential (primary) hypertension; K21.9 Gastro-esophageal reflux disease without esophagitis; Z90.49 Acquired absence of other specified parts of digestive tract; Z79.899 Other long term (current) drug therapy; Z88.8 Allergy status to other drugs, medicaments and biological substances; Z88.1 Allergy status to other antibiotic agents
CPT/HCPCS: 36415; 36600; 71046; 71275; 80053; 81001; 82803; 83735; 84484; 85025; 85379; 85610; 85730; 93005; 94640; 99285; A9270; J3490; Q9967; 93010; J7620

== ENCOUNTER 2024-02-05 10:09 | Emergency (ER) | payer MEDICARE | END 2024-02-05 14:15 | disposition home or self-care (01) | LOC: JP.ED 10:09 | DX: G54.8 Other nerve root and plexus disorders (principal); K21.9 Gastro-esophageal reflux disease without esophagitis; Z88.1 Allergy status to other antibiotic agents; Z88.8 Allergy status to other drugs, medicaments and biological substances; Z79.899 Other long term (current) drug therapy; Z90.49 Acquired absence of other specified parts of digestive tract | CPT/HCPCS: 72131; 76377; 99283 ==

== ENCOUNTER 2024-03-15 14:17 | Emergency (ER) | payer MEDICARE ==
[2024-03-15] MEDS: Methocarbamol 500 MG Tab PO ONE (15:05)
== END 2024-03-15 16:00 | disposition home or self-care (01) ==
LOC: JP.ED 14:17
DX: S39.012A Strain of muscle, fascia and tendon of lower back, initial encounter (principal); G89.29 Other chronic pain; I10 Essential (primary) hypertension; K21.9 Gastro-esophageal reflux disease without esophagitis; Z90.49 Acquired absence of other specified parts of digestive tract; Z79.899 Other long term (current) drug therapy; Z79.82 Long term (current) use of aspirin; Z79.891 Long term (current) use of opiate analgesic; Z79.51 Long term (current) use of inhaled steroids; Z79.1 Long term (current) use of non-steroidal anti-inflammatories (NSAID); Z88.1 Allergy status to other antibiotic agents; Z88.8 Allergy status to other drugs, medicaments and biological substances; X50.1XXA Overexertion from prolonged static or awkward postures, initial encounter
CPT/HCPCS: 99283; A9270

== ENCOUNTER 2024-04-05 07:56 | Day surgery (SDC) | payer MEDICARE ==
[2024-04-05 08:32] LABS: HEMATOCRIT 41.9 % (38.4-49.7); HEMOGLOBIN 14.5 g/dL (12.9-16.9); MEAN CORPUSCULAR HEMOGLOBIN 30.1 pg (31.6-35.5); MEAN CORPUSCULAR HGB CONC 34.6 g/dL (31.6-35.5); MEAN CORPUSCULAR VOLUME 86.9 fL (81.4-99.0); RED BLOOD CELL COUNT 4.82 M/uL (4.14-5.76); WHITE BLOOD CELL COUNT,WBC 5.3 K/uL (3.2-11.0)
[2024-04-05] MEDS: Lactated Ringers 1,000 ML IV SCH (08:37)
[2024-04-05] MEDS ORDERED: fentaNYL 250 MCG/5 ML SDV ONE (08:48)
[2024-04-05] MEDS ORDERED: Ondansetron 4 MG/2 ML SDV ONE (08:49)
[2024-04-05] MEDS ORDERED: Glycopyrrolate 0.2 MG/ML 5 ML MDV ONE (08:49)
[2024-04-05] MEDS ORDERED: Propofol 200 MG/20 ML SDV ONE (08:49)
[2024-04-05] MEDS ORDERED: Rocuronium 50 MG/5 ML Vial ONE (08:49)
[2024-04-05] MEDS ORDERED: Dexamethasone 4 MG/ML SDV ONE (08:49)
[2024-04-05] MEDS ORDERED: Neostigmine Methylsulfate 10 MG/10 ML MDV ONE (08:49)
[2024-04-05 08:53] LABS: ALANINE AMINOTRANSFERASE,ALT 20 U/L (12-78); ALBUMIN 3.7 g/dL (3.4-5.0); ALKALINE PHOSPHATASE 129 U/L (46-116); ANION GAP 7.9 mmol/L (5.0-14.0); ASPARTATE AMNIOTRANSFERASE,AST 16 U/L (15-37); BILIRUBIN TOTAL 0.5 mg/dL (0.2-1.0); BLOOD UREA NITROGEN,BUN 14 mg/dL (7-18); CALCIUM 9.5 mg/dL (8.5-10.1); CARBON DIOXIDE,CO2 30 mmol/L (21-32); CHLORIDE,CL 106 mmol/L (100-108); ESTIMATED GFR 78 mL/min (>60); GLUCOSE RANDOM 100 mg/dL (74-106); PROTEIN TOTAL,TP 7.6 g/dL (6.4-8.2); SODIUM,NA 144 mmol/L (140-148)
[2024-04-05] MEDS: Nozin Nasal Sanitizer NASBOTH ONE (08:56)
[2024-04-05] MEDS: Bupivacaine 0.5% 50 ML MDV ONE (09:11)
[2024-04-05] MEDS ORDERED: Succinylcholine 200 MG/10 ML MDV ONE ×2 (10:21→10:23)
[2024-04-05] MEDS: ceFAZolin 2 GM in Premix Bag 1 BAG IV ONE (10:50)
[2024-04-05] MEDS ORDERED: fentaNYL 100 MCG/2 ML SDV ONE (12:14)
[2024-04-05] MEDS ORDERED: Sugammadex Sodium 200 MG/2 ML VIAL IV ONE (12:17)
[2024-04-05] MEDS ORDERED: Lactated Ringers 1,000 ML ONE (12:20)
[2024-04-05] MEDS: Acetaminophen/oxyCODONE 325-5 MG Tab PO PRN (14:18)
== END 2024-04-05 15:00 | disposition home or self-care (01) ==
LOC: JP.SDS 07:56
PROVIDERS: ATTEND Specialist
DX: S73.192A Other sprain of left hip, initial encounter (principal); I10 Essential (primary) hypertension; K21.9 Gastro-esophageal reflux disease without esophagitis; Z88.8 Allergy status to other drugs, medicaments and biological substances; Z91.040 Latex allergy status
CPT/HCPCS: 01214; 29862; 36415; 80053; 85027; 93005; 93010; A9270; J0330; J0665; J0690; J1100; J2405; J2704; J3010; J3490; J7120; J1596; J2710

== ENCOUNTER 2024-05-24 09:18 | Inpatient (IN) | payer MEDICARE ==
[~2024-05-24 09:18] MED LIST: Midazolam 1 MG/ML 2 ML SDV ONE; Propofol 200 MG/20 ML SDV ONE; fentaNYL 100 MCG/2 ML SDV ONE
[2024-05-24 09:59] LABS: BASOPHILS ABSOLUTE AUTO 0.03 K/uL (0.00-0.10); BASOPHILS PERCENT AUTO 0.6 % (0.1-1.3); EOSINOPHILS ABSOLUTE AUTO 0.07 K/uL (0.00-0.40); EOSINOPHILS PERCENT AUTO 1.5 % (0.0-5.4); HEMOGLOBIN 13.7 g/dL (12.9-16.9); IMMATURE GRAN ABSOLUTE AUTO 0.03 K/uL (0.00-0.23); IMMATURE GRAN PERCENT AUTO 0.6 % (0.0-0.7); LYMPHOCYTES PERCENT AUTO 17.1 % (11.4-47.7); MEAN CORPUSCULAR HEMOGLOBIN 30.5 pg (31.6-35.5); MEAN CORPUSCULAR HGB CONC 34.3 g/dL (31.6-35.5); MEAN CORPUSCULAR VOLUME 89.1 fL (81.4-99.0); MONOCYTES ABSOLUTE AUTO 0.46 K/uL (0.20-0.90); MONOCYTES PERCENT AUTO 9.8 % (3.3-12.6); NEUTROPHILS PERCENT AUTO 70.4 % (40.0-78.1); PLATELET COUNT,PLT 146 K/uL (130-375); RED BLOOD CELL COUNT 4.49 M/uL (4.14-5.76); WHITE BLOOD CELL COUNT,WBC 4.7 K/uL (3.2-11.0)
[2024-05-24] MEDS ORDERED: Lactated Ringers 1,000 ML IV SCH (10:00)
[2024-05-24 10:21] LABS: A/G RATIO 0.9 (1.2-2.2); ALANINE AMINOTRANSFERASE,ALT 22 U/L (12-78); ALBUMIN 3.6 g/dL (3.4-5.0); ALKALINE PHOSPHATASE 128 U/L (46-116); ANION GAP 9.8 mmol/L (5.0-14.0); ASPARTATE AMNIOTRANSFERASE,AST 13 U/L (15-37); BILIRUBIN TOTAL 0.7 mg/dL (0.2-1.0); BLOOD UREA NITROGEN,BUN 15 mg/dL (7-18); CALCIUM 9.4 mg/dL (8.5-10.1); CARBON DIOXIDE,CO2 26 mmol/L (21-32); CHLORIDE,CL 106 mmol/L (100-108); CREATININE 0.9 mg/dL (0.8-1.3); EST CRCL DRUG DOSING (CG) 74.38 mL/min; ESTIMATED GFR 89 mL/min (>60); GLUCOSE RANDOM 107 mg/dL (74-106); PROTEIN TOTAL,TP 7.7 g/dL (6.4-8.2); SODIUM,NA 142 mmol/L (140-148)
[2024-05-24] MEDS: ceFAZolin 2 GM in Premix Bag 1 BAG IV ONE (12:15)
[2024-05-24] MEDS ORDERED: Non-Formulary Medication 1 Each (Trazodone [Trazodone] 150 MG Tablet) PO PRN (12:34)
[2024-05-24] MEDS ORDERED: Non-Formulary Medication 1 Each (Albuterol Sulfate [Proair Digihaler] 90 MCG Aer.Pw.Bas) INH PRN (12:34)
[2024-05-24] MEDS ORDERED: Non-Formulary Medication 1 Each (Tadalafil [Cialis] 20 MG Tablet) PO PRN (12:34)
[2024-05-24] MEDS ORDERED: oxyCODONE 5 MG Tab PO PRN (12:36)
[2024-05-24] MEDS ORDERED: Ondansetron 4 MG/2 ML SDV IVPUSH PRN (12:37)
[2024-05-24] MEDS ORDERED: Magnesium Hydroxide 400 MG/5 ML Susp 30 ML Cup PO PRN (12:37)
[2024-05-24] MEDS ORDERED: Docusate Sodium 100 MG Cap PO PRN (12:37)
[2024-05-24] MEDS ORDERED: ceFAZolin 2 GM in Sodium Chloride 0.9% 50 ML IV SCH (12:45)
[2024-05-24] MEDS ORDERED: fentaNYL 100 MCG/2 ML SDV ONE (12:58)
[2024-05-24] MEDS ORDERED: Albuterol 6.7 GM Inhaler INH PRN (13:06)
[2024-05-24] MEDS: Tranexamic Acid 960 MG in Sodium Chloride 0.9% 50 ML IV ONE (13:27)
[2024-05-24] MEDS: Bupivacaine 0.5% 50 ML MDV ONE (13:34)
[2024-05-24] MEDS ORDERED: Propofol 200 MG/20 ML SDV ONE ×3 (13:56→14:00)
[2024-05-24] MEDS: Morphine 2 MG/ML SYRINGE IVPUSH ONE (15:37)
[2024-05-24] MEDS ORDERED: HYOSCYAMINE 0.125 MG PO SCH (16:00)
[2024-05-24] MEDS: Morphine 2 MG/ML SYRINGE IV PRN (16:15)
[2024-05-24] MEDS: Nozin Nasal Sanitizer NASBOTH ONE (16:18)
[2024-05-24] MEDS: Acetaminophen 325 MG Tab PO SCH (16:28)
[2024-05-24] MEDS: oxyCODONE 5 MG Tab PO PRN (16:29)
[2024-05-24] MEDS: Gabapentin 400 MG Cap PO SCH (16:29)
[2024-05-24] MEDS ORDERED: Cholestyramine/Sucrose Powder 4 GM Packet PO SCH (17:00)
[2024-05-24] MEDS ORDERED: Gabapentin 300 MG Cap PO SCH (17:00)
[2024-05-24] MEDS ORDERED: Gabapentin 100 MG Cap PO SCH (17:00)
[2024-05-24] MEDS: Ketorolac 15 MG/ML SDV IVPUSH PRN (17:38)
[2024-05-24] MEDS: Cyclobenzaprine 10 MG Tab PO SCH (19:19)
[2024-05-24] MEDS: Cyclobenzaprine 10 MG Tab PO PRN (19:23)
[2024-05-24] MEDS: Benzocaine/Cetylpyridinium/Menthol Lozenge MUCMEM PRN (20:38)
[2024-05-24] MEDS: ceFAZolin 2 GM in Sodium Chloride 0.9% 100 ML IV SCH (20:40)
[2024-05-24] MEDS: fentaNYL 50 MCG/ML SDV IVPUSH PRN (20:52)
[2024-05-24] MEDS: Nozin Nasal Sanitizer NASBOTH SCH (20:59)
[2024-05-24] MEDS: Pantoprazole 40 MG Tab.CR PO SCH (20:59)
[2024-05-24] MEDS ORDERED: Non-Formulary Medication 1 Each (Budesonide/Formoterol Fumarate [Symbicort 80-4.5 Mcg Inha INH SCH (21:00)
[2024-05-24] MEDS ORDERED: Non-Formulary Medication 1 Each (Omeprazole [Omeprazole] 40 MG Cap.Cr) PO SCH (21:00)
[2024-05-24] MEDS: Hyoscyamine 0.125 MG Tab.SL SL SCH (21:00)
[2024-05-24] MEDS: traZODone 50 MG Tab PO SCH (21:03)
[2024-05-24] MEDS: Acetaminophen 325 MG Tab PO ONE (23:10)
[2024-05-24] MEDS: HYDROmorphone 2 MG Tab PO PRN (23:11)
[2024-05-24 23:24] LABS: BASOPHILS ABSOLUTE AUTO 0.03 K/uL (0.00-0.10); BASOPHILS PERCENT AUTO 0.3 % (0.1-1.3); EOSINOPHILS PERCENT AUTO 0.1 % (0.0-5.4); HEMATOCRIT 37.5 % (38.4-49.7); IMMATURE GRAN PERCENT AUTO 0.2 % (0.0-0.7); LYMPHOCYTES ABSOLUTE AUTO 0.74 K/uL (0.8-3.3); LYMPHOCYTES PERCENT AUTO 6.2 % (11.4-47.7); MEAN CORPUSCULAR HEMOGLOBIN 30.7 pg (31.6-35.5); MEAN CORPUSCULAR HGB CONC 34.7 g/dL (31.6-35.5); MEAN CORPUSCULAR VOLUME 88.7 fL (81.4-99.0); MONOCYTES PERCENT AUTO 7.5 % (3.3-12.6); NEUTROPHILS ABSOLUTE AUTO 10.25 K/uL (1.0-7.6); NEUTROPHILS PERCENT AUTO 85.7 % (40.0-78.1); PLATELET COUNT,PLT 155 K/uL (130-375); RED BLOOD CELL COUNT 4.23 M/uL (4.14-5.76)
[2024-05-24 23:26] LABS: EOSINOPHILS ABSOLUTE AUTO 0.01 K/uL (0.00-0.40); IMMATURE GRAN ABSOLUTE AUTO 0.02 K/uL (0.00-0.23)
[2024-05-24 23:46] LABS: ALANINE AMINOTRANSFERASE,ALT 22 U/L (12-78); ALBUMIN 3.5 g/dL (3.4-5.0); ALKALINE PHOSPHATASE 134 U/L (46-116); ASPARTATE AMNIOTRANSFERASE,AST 22 U/L (15-37); BILIRUBIN TOTAL 0.8 mg/dL (0.2-1.0); BLOOD UREA NITROGEN,BUN 15 mg/dL (7-18); CALCIUM 9.2 mg/dL (8.5-10.1); CARBON DIOXIDE,CO2 25 mmol/L (21-32); CHLORIDE,CL 103 mmol/L (100-108); EST CRCL DRUG DOSING (CG) 66.94 mL/min; ESTIMATED GFR 78 mL/min (>60); GLUCOSE RANDOM 123 mg/dL (74-106); POTASSIUM,K 3.8 mmol/L (3.6-5.2); SODIUM,NA 139 mmol/L (140-148)
[2024-05-24 23:51] LABS: ANION GAP 14.8 mmol/L (5.0-14.0)
[2024-05-25] MEDS: Sodium Chloride 0.9% 1,000 ML IV SCH (00:32)
[2024-05-25] MEDS: Vancomycin 1.75 GM in Sodium Chloride 0.9% 500 ML IV ONE (00:34)
[2024-05-25] MEDS: Sodium Chloride 0.9% 20 ML ONE (01:03)
[2024-05-25 05:32] LABS: HEMATOCRIT 35.8 % (38.4-49.7); HEMOGLOBIN 12.3 g/dL (12.9-16.9); MEAN CORPUSCULAR HEMOGLOBIN 30.4 pg (31.6-35.5); MEAN CORPUSCULAR HGB CONC 34.4 g/dL (31.6-35.5); MEAN CORPUSCULAR VOLUME 88.6 fL (81.4-99.0); RED BLOOD CELL COUNT 4.04 M/uL (4.14-5.76); WHITE BLOOD CELL COUNT,WBC 9.4 K/uL (3.2-11.0)
[2024-05-25] MEDS: Lactobacillus Rhamnosus GG (Probiotic) Cap PO SCH (08:52)
[2024-05-25] MEDS: Tamsulosin 0.4 MG Cap.ER PO SCH (08:53)
[2024-05-25] MEDS: Aspirin 325 MG Tab.EC PO SCH (08:53)
[2024-05-25] MEDS: amLODIPine 5 MG Tab PO SCH (08:54)
[2024-05-25] MEDS: Multivitamins with Iron/Calcium/Folic Acid/Minerals Tab PO SCH (08:55)
[2024-05-25] MEDS: Fluticasone NASAL Spray 16 GM Bottle NAS SCH (08:56)
[2024-05-25] MEDS ORDERED: NALOXEGOL OXALATE 25 MG PO SCH (09:00)
[2024-05-25] MEDS ORDERED: MULTIVITAMIN PO SCH (09:00)
[2024-05-25] MEDS: ceFAZolin 2 GM in Sodium Chloride 0.9% 50 ML IV SCH (11:20)
[2024-05-26 05:52] LABS: EST CRCL DRUG DOSING (CG) 66.94 mL/min
[2024-05-26 09:11] LABS: BASOPHILS ABSOLUTE AUTO 0.02 K/uL (0.00-0.10); BASOPHILS PERCENT AUTO 0.2 % (0.1-1.3); EOSINOPHILS ABSOLUTE AUTO 0.03 K/uL (0.00-0.40); EOSINOPHILS PERCENT AUTO 0.3 % (0.0-5.4); HEMATOCRIT 33.1 % (38.4-49.7); HEMOGLOBIN 11.4 g/dL (12.9-16.9); IMMATURE GRAN ABSOLUTE AUTO 0.05 K/uL (0.00-0.23); IMMATURE GRAN PERCENT AUTO 0.5 % (0.0-0.7); LYMPHOCYTES ABSOLUTE AUTO 0.94 K/uL (0.8-3.3); LYMPHOCYTES PERCENT AUTO 9.6 % (11.4-47.7); MEAN CORPUSCULAR HEMOGLOBIN 30.6 pg (31.6-35.5); MEAN CORPUSCULAR HGB CONC 34.4 g/dL (31.6-35.5); MONOCYTES ABSOLUTE AUTO 1.55 K/uL (0.20-0.90); MONOCYTES PERCENT AUTO 15.8 % (3.3-12.6); NEUTROPHILS ABSOLUTE AUTO 7.23 K/uL (1.0-7.6); NEUTROPHILS PERCENT AUTO 73.6 % (40.0-78.1); PLATELET COUNT,PLT 133 K/uL (130-375); RED BLOOD CELL COUNT 3.72 M/uL (4.14-5.76); WHITE BLOOD CELL COUNT,WBC 9.8 K/uL (3.2-11.0)
[2024-05-26 09:26] LABS: CALCIUM 8.7 mg/dL (8.5-10.1); CREATININE 1.1 mg/dL (0.8-1.3); EST CRCL DRUG DOSING (CG) 60.86 mL/min
[2024-05-26 11:09] LABS: APPEARANCE,URINE CLEAR (CLEAR); BILIRUBIN,URINE NEGATIVE (NEGATIVE); COLOR,URINE YELLOW (YELLOW); GLUCOSE,URINE NEGATIVE (NEGATIVE); KETONES,URINE NEGATIVE (NEGATIVE); LEUKOCYTE ESTERASE,URINE NEGATIVE (NEGATIVE); NITRITE,URINE NEGATIVE (NEGATIVE); OCCULT BLOOD,URINE NEGATIVE (NEGATIVE); PROTEIN,URINE TRACE mg/dL (NEGATIVE)
[2024-05-26 11:21] LABS: AMORPHOUS SEDIMENT,URINE FEW; BACTERIA,URINE FEW; EPITHELIAL CELLS,URINE FEW; MUCUS,URINE MANY
[2024-05-26 11:32] LABS: RBC,URINE 0-5 (0-5); WBC,URINE 0-5 (0-5)
[2024-05-26] MEDS: Doxycycline 100 MG Cap PO ONE (16:17)
[2024-05-27] MEDS: Doxycycline 100 MG Cap PO SCH (05:28)
== END 2024-05-27 13:12 | disposition home or self-care (01) | DRG 470 ==
LOC: JP.SDS 09:18 → JP.MS 12:37 → JP.SDS 05-25 16:59
PROVIDERS: ADMIT Specialist; ATTEND Specialist
PROC: 0SRB03A Replacement of Left Hip Joint with Ceramic Synthetic Substitute, Uncemented, Open Approach (ICD-10-PCS; principal; 2024-05-24 11:00)
DX: M16.12 Unilateral primary osteoarthritis, left hip (principal); K86.1 Other chronic pancreatitis; A79.82 Anaplasmosis [A. phagocytophilum]; K21.9 Gastro-esophageal reflux disease without esophagitis; Z79.82 Long term (current) use of aspirin; Z79.899 Other long term (current) drug therapy
CPT/HCPCS: 01214-QZ; 36415; 71045; 71045-26; 72170; 72170-26; 80048; 80053; 81001; 82565; 83605; 84145; 85025; 85027; 87040; 97110-GP; 97116-GP; 97161-GP; 97165-GO; 97530-GP; 99231; 99232; A9270-GY; C1713; C1776; J0665; J0690; J1885; J2250; J2270; J2704; J3010; J3490; J7030; J7040; J7050

== ENCOUNTER 2024-11-13 16:36 | Emergency (ER) | payer MEDICARE ==
[2024-11-13] MEDS: fentaNYL 100 MCG/2 ML SDV IVPUSH ONE (16:41)
[2024-11-13] MEDS: Midazolam 1 MG/ML 2 ML SDV IVPUSH ONE (16:50)
[2024-11-13] MEDS ORDERED: Propofol 200 MG/20 ML SDV ONE (17:18)
== END 2024-11-13 18:38 | disposition home or self-care (01) ==
LOC: JP.ED 16:36
DX: T84.021A Dislocation of internal left hip prosthesis, initial encounter (principal); I10 Essential (primary) hypertension; Z88.1 Allergy status to other antibiotic agents; Z88.8 Allergy status to other drugs, medicaments and biological substances; Z79.899 Other long term (current) drug therapy; Z79.51 Long term (current) use of inhaled steroids; X50.0XXA Overexertion from strenuous movement or load, initial encounter; Y93.89 Activity, other specified
CPT/HCPCS: 27265; 73501; 96374; 96375; 99283; 99284; J2250; J2704; J3010

== ENCOUNTER 2025-01-04 15:50 | Inpatient (IN) | payer MEDICARE ==
[2025-01-04] MEDS ORDERED: Sodium Chloride 0.9% 10 ML Syringe FLUSH PRN (16:17)
[2025-01-04] MEDS: Sodium Chloride 0.9% 1,000 ML IV ONE (16:42)
[2025-01-04] MEDS: Doxycycline 100 MG in Sodium Chloride 0.9% 100 ML IV SCH (16:42)
[2025-01-04 16:45] LABS: HEMATOCRIT 40.6 % (38.4-49.7); HEMOGLOBIN 14.2 g/dL (12.9-16.9); MEAN CORPUSCULAR HEMOGLOBIN 31.1 pg (31.6-35.5); RED BLOOD CELL COUNT 4.56 M/uL (4.14-5.76); WHITE BLOOD CELL COUNT,WBC 1.3 K/uL (3.2-11.0)
[2025-01-04 17:03] LABS: A/G RATIO 0.9 (1.2-2.2); ALANINE AMINOTRANSFERASE,ALT 59 U/L (12-78); ALBUMIN 3.1 g/dL (3.4-5.0); ALKALINE PHOSPHATASE 241 U/L (46-116); ASPARTATE AMNIOTRANSFERASE,AST 59 U/L (15-37); BILIRUBIN TOTAL 0.7 mg/dL (0.2-1.0); BLOOD UREA NITROGEN,BUN 23 mg/dL (7-18); C-REACTIVE PROTEIN 13.72 mg/dL (<0.50); CALCIUM 8.5 mg/dL (8.5-10.1); CARBON DIOXIDE,CO2 26 mmol/L (21-32); CHLORIDE,CL 98 mmol/L (100-108); CREATININE 1.4 mg/dL (0.8-1.3); EST CRCL DRUG DOSING (CG) 47.81 mL/min; ESTIMATED GFR 52 mL/min (>60); GLUCOSE RANDOM 126 mg/dL (74-106); PROTEIN TOTAL,TP 6.5 g/dL (6.4-8.2); SODIUM,NA 132 mmol/L (140-148)
[2025-01-04 17:05] LABS: PLATELET COUNT,PLT 29 K/uL (130-375)
[2025-01-04 17:08] LABS: LACTIC ACID 1.4 mmol/L (0.4-2.0)
[2025-01-04 17:31] LABS: LYME AB IgG Negative (Negative); LYME AB IgM Negative (Negative)
[2025-01-04 17:47] LABS: BAND ABSOLUTE MAN 0.14 K/uL; BAND PERCENT MAN 11 % (5-11); LYMPHOCYTES ABSOLUTE MAN 0.33 K/uL (0.8-3.3); LYMPHOCYTES PERCENT MAN 25 % (24-44); METAMYELOCYTE ABSOLUTE MAN 0.04 K/uL; METAMYELOCYTE PERCENT MAN 3 %; MONOCYTES ABSOLUTE MAN 0.16 K/uL (0.20-0.90); MONOCYTES PERCENT MAN 12 % (2-6); NEUTROPHILS ABSOLUTE MAN 0.64 K/uL (1.0-7.6); SEG NEUTROPHILS PERCENT MAN 49 % (36-66)
[2025-01-04 17:48] LABS: ATYPICAL LYMPHOCYTES MANY
[2025-01-04] MEDS: Acetaminophen 1,000 MG in Premix Bag 1 BAG IV ONE (18:10)
[2025-01-04] MEDS ORDERED: Melatonin 3 MG Tab PO PRN (20:09)
[2025-01-04] MEDS ORDERED: Acetaminophen 325 MG Tab PO PRN (20:09)
[2025-01-04] MEDS ORDERED: Sennosides/Docusate Sodium 50-8.6 MG Tab PO PRN (20:09)
[2025-01-04] MEDS ORDERED: Magnesium Hydroxide 400 MG/5 ML Susp 30 ML Cup PO PRN (20:09)
[2025-01-04] MEDS ORDERED: Ondansetron 4 MG Tab.DIS PO PRN (20:09)
[2025-01-04] MEDS: Lactobacillus Rhamnosus GG (Probiotic) Cap PO SCH (20:22)
[2025-01-04] MEDS: Sodium Chloride 0.9% 1,000 ML IV SCH (20:22)
[2025-01-04] MEDS ORDERED: Albuterol 0.083% 2.5 MG/3 ML Neb Soln NEB PRN (21:01)
[2025-01-04] MEDS: Celecoxib 200 MG Cap PO SCH (21:38)
[2025-01-05 06:04] LABS: HEMATOCRIT 38.9 % (38.4-49.7); HEMOGLOBIN 13.2 g/dL (12.9-16.9); MEAN CORPUSCULAR HEMOGLOBIN 30.8 pg (31.6-35.5); MEAN CORPUSCULAR HGB CONC 33.9 g/dL (31.6-35.5); MEAN CORPUSCULAR VOLUME 90.7 fL (81.4-99.0); RED BLOOD CELL COUNT 4.29 M/uL (4.14-5.76); WHITE BLOOD CELL COUNT,WBC 1.2 K/uL (3.2-11.0)
[2025-01-05 06:18] LABS: CALCIUM 8.7 mg/dL (8.5-10.1); CREATININE 0.9 mg/dL (0.8-1.3); EST CRCL DRUG DOSING (CG) 74.37 mL/min
[2025-01-05] MEDS: Pantoprazole 40 MG Tab.CR PO SCH (07:52)
[2025-01-05] MEDS: Gabapentin 400 MG Cap PO SCH (07:52)
[2025-01-05] MEDS: amLODIPine 5 MG Tab PO SCH (07:53)
[2025-01-05] MEDS: Fluticasone NASAL Spray 16 GM Bottle NASBOTH SCH (08:03)
[2025-01-05] MEDS: Ondansetron 4 MG/2 ML SDV IV PRN (08:54)
[2025-01-05] MEDS ORDERED: Sodium Chloride 0.9% 1,000 ML IV SCH (09:30)
[2025-01-05] MEDS: traMADol 50 MG Tab PO SCH (09:53)
[2025-01-05] MEDS: DULoxetine 30 MG Cap PO SCH (09:53)
[2025-01-08 00:12] LABS: ANAPLASMA PHAGOCYTOPHILUM PCR Detected; BABESIA MICROTI BY PCR Not Detected; BABESIA SPECIES BY PCR Not Detected; EHRLICHIA CHAFFEENSIS BY PCR Not Detected; EHRLICHIA EWINGII/CANIS BY PCR Not Detected; EHRLICHIA MURIS-LIKE BY PCR Not Detected
== END 2025-01-05 11:30 | disposition home or self-care (01) | DRG 868 ==
LOC: JP.ED 15:50 → JP.MS 18:48
PROVIDERS: ADMIT Registered Nurse; ATTEND Internal Medicine
DX: A77.49 Other ehrlichiosis (principal); N17.9 Acute kidney failure, unspecified; R53.1 Weakness; G62.9 Polyneuropathy, unspecified; F32.A Depression, unspecified; Z96.649 Presence of unspecified artificial hip joint; Z96.659 Presence of unspecified artificial knee joint; D69.6 Thrombocytopenia, unspecified; E78.5 Hyperlipidemia, unspecified; D70.9 Neutropenia, unspecified; A93.8 Other specified arthropod-borne viral fevers; I71.20 Thoracic aortic aneurysm, without rupture, unspecified; Z96.619 Presence of unspecified artificial shoulder joint; H54.7 Unspecified visual loss; Z90.2 Acquired absence of lung [part of]; I10 Essential (primary) hypertension; K21.9 Gastro-esophageal reflux disease without esophagitis; Z88.8 Allergy status to other drugs, medicaments and biological substances; Z88.1 Allergy status to other antibiotic agents; Z79.51 Long term (current) use of inhaled steroids; Z87.01 Personal history of pneumonia (recurrent); Z87.81 Personal history of (healed) traumatic fracture; Z98.890 Other specified postprocedural states; Z79.899 Other long term (current) drug therapy; Z85.118 Personal history of other malignant neoplasm of bronchus and lung; Z90.49 Acquired absence of other specified parts of digestive tract; Z87.891 Personal history of nicotine dependence
CPT/HCPCS: 36415; 80053; 83605; 85025; 86140; 86618 ×2; 87040 ×2; 87468; 87469; 87484; 87798 ×3; 96365; 96367; 99284; 99285; J0131; J3490; J7030; 80048; 85027; 97161-GP; 99222; 99238; A9270-GY; J2405

== ENCOUNTER 2025-01-15 10:58 | Emergency (ER) | payer MEDICARE ==
[2025-01-15] MEDS: HYDROmorphone 0.5 MG/0.5 ML Syringe IVPUSH ONE (11:18)
[2025-01-15] MEDS ORDERED: Propofol 200 MG/20 ML SDV ONE (12:19)
== END 2025-01-15 12:58 | disposition home or self-care (01) ==
LOC: JP.ED 10:58
DX: S73.005A Unspecified dislocation of left hip, initial encounter (principal); I10 Essential (primary) hypertension; K21.9 Gastro-esophageal reflux disease without esophagitis; Z88.1 Allergy status to other antibiotic agents; Z88.8 Allergy status to other drugs, medicaments and biological substances; Z79.899 Other long term (current) drug therapy; Z90.49 Acquired absence of other specified parts of digestive tract; Z87.891 Personal history of nicotine dependence; X50.1XXA Overexertion from prolonged static or awkward postures, initial encounter
CPT/HCPCS: 27265; 73501; 73502; 96374; 99152; 99284; J2704; 01200-QZ; J1171

== ENCOUNTER 2025-01-29 09:00 | Day surgery (SDC) | payer MEDICARE ==
[2025-01-29 09:25] LABS: PLATELET COUNT,PLT 107.0 K/uL (130-375); RED BLOOD CELL COUNT 4.34 M/uL (4.14-5.76); WHITE BLOOD CELL COUNT,WBC 3.9 K/uL (3.2-11.0)
[2025-01-29] MEDS ORDERED: Midazolam 1 MG/ML 2 ML SDV ONE (09:33)
[2025-01-29] MEDS ORDERED: fentaNYL 100 MCG/2 ML SDV ONE (09:33)
[2025-01-29] MEDS ORDERED: Propofol 200 MG/20 ML SDV ONE (09:33)
[2025-01-29 09:38] LABS: BLOOD UREA NITROGEN,BUN 13 mg/dL (7-18); CARBON DIOXIDE,CO2 28 mmol/L (21-32); CHLORIDE,CL 103 mmol/L (100-108); CREATININE 0.9 mg/dL (0.8-1.3); ESTIMATED GFR 89 mL/min (>60); GLUCOSE RANDOM 101 mg/dL (74-106); POTASSIUM,K 4.0 mmol/L (3.6-5.2); SODIUM,NA 140 mmol/L (140-148)
[2025-01-29] MEDS: Nozin Nasal Sanitizer NASBOTH SCH ×2 (09:57→21:16)
[2025-01-29] MEDS: Lactated Ringers 1,000 ML IV SCH (10:22)
[2025-01-29] MEDS ORDERED: Succinylcholine 200 MG/10 ML MDV ONE (11:54)
[2025-01-29] MEDS ORDERED: Dexamethasone 4 MG/ML SDV ONE (11:54)
[2025-01-29] MEDS ORDERED: Ondansetron 4 MG/2 ML SDV ONE (11:54)
[2025-01-29] MEDS ORDERED: Glycopyrrolate 0.2 MG/ML 5 ML MDV ONE (11:54)
[2025-01-29] MEDS ORDERED: fentaNYL 250 MCG/5 ML SDV ONE (12:13)
[2025-01-29] MEDS ORDERED: ePHEDrine 50 MG/ML SDV ONE (12:50)
[2025-01-29] MEDS ORDERED: Magnesium Hydroxide 400 MG/5 ML Susp 30 ML Cup PO PRN (13:13)
[2025-01-29] MEDS ORDERED: Ondansetron 4 MG/2 ML SDV IVPUSH PRN (13:13)
[2025-01-29] MEDS ORDERED: HYOSCYAMINE 0.125 MG PO PRN (13:15)
[2025-01-29] MEDS ORDERED: Hyoscyamine 0.125 MG Tab.SL SL PRN (17:05)
[2025-01-29] MEDS ORDERED: Non-Formulary Medication 1 Each (Omeprazole [Omeprazole] 40 MG Cap.Cr) PO SCH (21:00)
[2025-01-30] MEDS: Ketorolac 15 MG/ML SDV IVPUSH PRN (00:33)
[2025-01-30 06:13] LABS: PLATELET COUNT,PLT 115.0 K/uL (130-375); RED BLOOD CELL COUNT 3.97 M/uL (4.14-5.76); WHITE BLOOD CELL COUNT,WBC 8.9 K/uL (3.2-11.0)
[2025-01-30] MEDS: Aspirin 325 MG Tab.EC PO SCH (08:58)
[2025-01-30] MEDS: Cyanocobalamin (Vitamin B12) 1,000 MCG Tab PO SCH (08:58)
[2025-01-30] MEDS: Multivitamins with Iron/Calcium/Folic Acid/Minerals Tab PO SCH (08:58)
[2025-01-30] MEDS: Fluticasone NASAL Spray 16 GM Bottle NAS SCH (09:00)
== END 2025-01-30 10:37 | disposition home or self-care (01) ==
LOC: JP.SDS 09:00 → JP.MS 13:13 → JP.SDS 01-30 10:37
PROVIDERS: ATTEND Specialist
DX: M24.452 Recurrent dislocation, left hip (principal); M25.352 Other instability, left hip; I10 Essential (primary) hypertension; Z79.82 Long term (current) use of aspirin; Z79.899 Other long term (current) drug therapy; Z88.8 Allergy status to other drugs, medicaments and biological substances; Z91.040 Latex allergy status; Z87.891 Personal history of nicotine dependence
CPT/HCPCS: 27137; 36415; 80048; 85027; 97110; 97161; A9270; C1713; C1776; J0330; J0665; J0690; J1100; J1596; J1885; J2250; J2405; J2704; J2710; J3010; J7120; J3490

== ENCOUNTER 2025-05-06 06:26 | Emergency (ER) | payer MEDICARE ==
[2025-05-06] MEDS: Ketorolac 30 MG/ML SDV IVPUSH ONE (07:23)
[2025-05-06 07:26] LABS: BASOPHILS ABSOLUTE AUTO 0.02 K/uL (0.00-0.10); BASOPHILS PERCENT AUTO 0.5 % (0.1-1.3); EOSINOPHILS ABSOLUTE AUTO 0.13 K/uL (0.00-0.40); EOSINOPHILS PERCENT AUTO 3.2 % (0.0-5.4); IMMATURE GRAN ABSOLUTE AUTO 0.01 K/uL (0.00-0.23); IMMATURE GRAN PERCENT AUTO 0.2 % (0.0-0.7); LYMPHOCYTES ABSOLUTE AUTO 0.53 K/uL (0.8-3.3); LYMPHOCYTES PERCENT AUTO 13.1 % (11.4-47.7); MONOCYTES ABSOLUTE AUTO 0.48 K/uL (0.20-0.90); MONOCYTES PERCENT AUTO 11.9 % (3.3-12.6); NEUTROPHILS ABSOLUTE AUTO 2.88 K/uL (1.0-7.6); NEUTROPHILS PERCENT AUTO 71.1 % (40.0-78.1); PLATELET COUNT,PLT 102 K/uL (130-375); RED BLOOD CELL COUNT 4.69 M/uL (4.14-5.76); WHITE BLOOD CELL COUNT,WBC 4.1 K/uL (3.2-11.0)
[2025-05-06 07:47] LABS: A/G RATIO 1.2 (1.2-2.2); ALANINE AMINOTRANSFERASE,ALT 18 U/L (12-78); ASPARTATE AMNIOTRANSFERASE,AST 16 U/L (15-37); BILIRUBIN TOTAL 0.6 mg/dL (0.2-1.0); BLOOD UREA NITROGEN,BUN 10 mg/dL (7-18); CARBON DIOXIDE,CO2 27 mmol/L (21-32); CHLORIDE,CL 103 mmol/L (100-108); CREATININE 0.9 mg/dL (0.8-1.3); EST CRCL DRUG DOSING (CG) 73.23 mL/min; ESTIMATED GFR 89 mL/min (>60); GLUCOSE RANDOM 100 mg/dL (74-106); POTASSIUM,K 3.8 mmol/L (3.6-5.2); PROTEIN TOTAL,TP 7.5 g/dL (6.4-8.2); SODIUM,NA 141 mmol/L (140-148)
[2025-05-06] MEDS: Prochlorperazine 10 MG/2 ML SDV IVPUSH PRN (08:19)
[2025-05-06] MEDS: fentaNYL 50 MCG/ML SDV IM ONE (08:21)
[2025-05-06] MEDS: fentaNYL 50 MCG/ML SDV IV ONE (08:22)
[2025-05-06 08:44] LABS: APPEARANCE,URINE CLEAR (CLEAR); GLUCOSE,URINE NEGATIVE (NEGATIVE); OCCULT BLOOD,URINE NEGATIVE (NEGATIVE)
[2025-05-06 09:10] LABS: AMPHETAMINES SCREEN, URINE NEGATIVE (NEGATIVE); METHADONE SCREEN, URINE NEGATIVE (NEGATIVE); METHAMPHETAMINES SCREEN, URINE NEGATIVE (NEGATIVE)
[2025-05-06 09:11] LABS: OXYCODONE SCREEN,URINE PRESUMPTIVE POSITIVE (NEGATIVE); PROPOXYPHENE SCREEN,URINE NEGATIVE (NEGATIVE); THC SCREEN,URINE 50 NG/ML NEGATIVE (NEGATIVE)
== END 2025-05-06 09:42 | disposition home or self-care (01) ==
LOC: JP.ED 06:26
DX: K86.0 Alcohol-induced chronic pancreatitis (principal); I10 Essential (primary) hypertension; K21.9 Gastro-esophageal reflux disease without esophagitis; Z88.1 Allergy status to other antibiotic agents; Z91.0110 Allergy to milk products, unspecified; Z88.8 Allergy status to other drugs, medicaments and biological substances; Z79.899 Other long term (current) drug therapy; Z90.49 Acquired absence of other specified parts of digestive tract; Z87.891 Personal history of nicotine dependence
CPT/HCPCS: 36415; 80053; 80305; 81003; 83690; 85025; 86140; 96361; 96374; 96375; 99284; J0780; J1885; J3010; J7030

== ENCOUNTER 2025-05-09 03:14 | Emergency (ER) | payer MEDICARE | END 2025-05-09 05:32 | disposition home or self-care (01) | LOC: JP.ED 03:14 | DX: K29.70 Gastritis, unspecified, without bleeding (principal); K20.90 Esophagitis, unspecified without bleeding; K86.0 Alcohol-induced chronic pancreatitis; F10.20 Alcohol dependence, uncomplicated; I10 Essential (primary) hypertension; I25.2 Old myocardial infarction; K21.9 Gastro-esophageal reflux disease without esophagitis; Z86.16 Personal history of COVID-19; Z90.49 Acquired absence of other specified parts of digestive tract; Z91.018 Allergy to other foods; Z88.8 Allergy status to other drugs, medicaments and biological substances; Z79.899 Other long term (current) drug therapy | CPT/HCPCS: 96372; 99283; A9270; J1790; Q0169 ==

== ENCOUNTER 2025-05-25 15:00 | Emergency (ER) | payer MEDICARE ==
[2025-05-25] MEDS: oxyCODONE ER 10 MG TAB.ER PO ONE (17:38)
== END 2025-05-25 17:43 | disposition home or self-care (01) ==
LOC: JP.ED 15:00
DX: G89.3 Neoplasm related pain (acute) (chronic) (principal); R10.10 Upper abdominal pain, unspecified; I25.10 Atherosclerotic heart disease of native coronary artery without angina pectoris; I10 Essential (primary) hypertension; I25.2 Old myocardial infarction; K21.9 Gastro-esophageal reflux disease without esophagitis; Z90.49 Acquired absence of other specified parts of digestive tract; Z79.899 Other long term (current) drug therapy; Z91.048 Other nonmedicinal substance allergy status; Z88.1 Allergy status to other antibiotic agents; Z91.0110 Allergy to milk products, unspecified; Z88.8 Allergy status to other drugs, medicaments and biological substances; Z85.07 Personal history of malignant neoplasm of pancreas
CPT/HCPCS: 96372; 99283; A9270; J1171

== ENCOUNTER 2025-05-27 07:47 | Emergency (ER) | payer MEDICARE ==
[2025-05-27 08:11] LABS: BASOPHILS PERCENT AUTO 0.3 % (0.1-1.3); EOSINOPHILS ABSOLUTE AUTO 0.04 K/uL (0.00-0.40); EOSINOPHILS PERCENT AUTO 0.7 % (0.0-5.4); IMMATURE GRAN PERCENT AUTO 0.3 % (0.0-0.7); LYMPHOCYTES ABSOLUTE AUTO 0.59 K/uL (0.8-3.3); LYMPHOCYTES PERCENT AUTO 10.2 % (11.4-47.7); MONOCYTES ABSOLUTE AUTO 0.37 K/uL (0.20-0.90); MONOCYTES PERCENT AUTO 6.4 % (3.3-12.6); NEUTROPHILS ABSOLUTE AUTO 4.75 K/uL (1.0-7.6); NEUTROPHILS PERCENT AUTO 82.1 % (40.0-78.1); PLATELET COUNT,PLT 120 K/uL (130-375); RED BLOOD CELL COUNT 5.05 M/uL (4.14-5.76); WHITE BLOOD CELL COUNT,WBC 5.8 K/uL (3.2-11.0)
[2025-05-27 08:13] LABS: BASOPHILS ABSOLUTE AUTO 0.02 K/uL (0.00-0.10); IMMATURE GRAN ABSOLUTE AUTO 0.02 K/uL (0.00-0.23)
[2025-05-27 08:32] LABS: A/G RATIO 1.4 (1.2-2.2); ALANINE AMINOTRANSFERASE,ALT 19 U/L (12-78); ASPARTATE AMNIOTRANSFERASE,AST 20 U/L (15-37); BILIRUBIN TOTAL 1.0 mg/dL (0.2-1.0); BLOOD UREA NITROGEN,BUN 10 mg/dL (7-18); CARBON DIOXIDE,CO2 27 mmol/L (21-32); CHLORIDE,CL 99 mmol/L (100-108); CREATININE 0.9 mg/dL (0.8-1.3); EST CRCL DRUG DOSING (CG) 73.23 mL/min; ESTIMATED GFR 89 mL/min (>60); GLUCOSE RANDOM 121 mg/dL (74-106); POTASSIUM,K 3.8 mmol/L (3.6-5.2); PROTEIN TOTAL,TP 8.2 g/dL (6.4-8.2); SODIUM,NA 138 mmol/L (140-148); TROPONIN I HIGH SENSITIVITY 14.7 pg/mL (<=60.3)
== END 2025-05-27 09:41 | disposition home or self-care (01) ==
LOC: JP.ED 07:47
DX: C25.8 Malignant neoplasm of overlapping sites of pancreas (principal); I25.10 Atherosclerotic heart disease of native coronary artery without angina pectoris; I10 Essential (primary) hypertension; I25.2 Old myocardial infarction; K21.9 Gastro-esophageal reflux disease without esophagitis; Z91.018 Allergy to other foods; Z91.0110 Allergy to milk products, unspecified; Z88.8 Allergy status to other drugs, medicaments and biological substances; Z88.1 Allergy status to other antibiotic agents; Z79.899 Other long term (current) drug therapy; Z90.49 Acquired absence of other specified parts of digestive tract; Z87.891 Personal history of nicotine dependence
CPT/HCPCS: 36415; 71046; 80053; 84484; 85025; 93005; 96374; 99285; J1171; J7030

== ENCOUNTER 2025-06-04 12:29 | Emergency (ER) | payer MEDICARE ==
[2025-06-04] MEDS ORDERED: Naloxone 0.4 MG/ML SDV IM PRN (12:58)
== END 2025-06-04 13:53 | disposition home or self-care (01) ==
LOC: JP.ED 12:29
DX: C25.8 Malignant neoplasm of overlapping sites of pancreas (principal); I10 Essential (primary) hypertension; I25.10 Atherosclerotic heart disease of native coronary artery without angina pectoris; I25.2 Old myocardial infarction; K21.9 Gastro-esophageal reflux disease without esophagitis; Z90.49 Acquired absence of other specified parts of digestive tract; Z79.899 Other long term (current) drug therapy; Z91.048 Other nonmedicinal substance allergy status; Z91.0110 Allergy to milk products, unspecified; Z88.8 Allergy status to other drugs, medicaments and biological substances; Z88.1 Allergy status to other antibiotic agents
CPT/HCPCS: 96372; 99283; J1171

== ENCOUNTER 2025-06-25 08:53 | Day surgery (SDC) | payer MEDICARE ==
[~2025-06-25 08:53] MED LIST changes: -fentaNYL 100 MCG/2 ML SDV ONE; +fentaNYL 50 MCG/ML SDV ONE
[2025-06-25] MEDS: Lactated Ringers 1,000 ML IV SCH (09:43)
[2025-06-25] MEDS: Lidocaine 1% with EPINEPHrine 1:100,000 50 ML MDV ONE (10:40)
== END 2025-06-25 12:37 | disposition home or self-care (01) ==
LOC: JP.SDS 08:53
PROVIDERS: ATTEND Surgery
DX: Z51.11 Encounter for antineoplastic chemotherapy (principal); I10 Essential (primary) hypertension; I25.10 Atherosclerotic heart disease of native coronary artery without angina pectoris; K21.9 Gastro-esophageal reflux disease without esophagitis; Z91.0110 Allergy to milk products, unspecified; Z91.040 Latex allergy status; Z88.1 Allergy status to other antibiotic agents; Z91.018 Allergy to other foods; Z79.899 Other long term (current) drug therapy
CPT/HCPCS: 00532; 36561; 71045; 77001; A9270; C1788; C1894; J0690; J1642; J2250; J2704; J3010; J7120; J0665